=== PATIENT | male | born 1945 | race Caucasian/White ===

== ENCOUNTER → 2016-06-19 | Outpatient (CLI) | payer MEDICARE, BC ==
[2014-11-13 11:30] VITALS: BP 129/54
[~2016-06-19] MED LIST: ACET325T9 PO; ACET500T68 PO; ASPI325T4 PO; ATOR20TA58 PO; CALC-450 PO; CALC600T PO; CHOL200027 PO; CYCL10TA2 PO; DENO60DI SQ; DOCU-27 PO; EZET10TA3 PO; FENO145T PO; FENO145T2 PO; HYDR1TAB10 PO; LEVO88TA4 PO; LOTE3.5O OP; MAGN1TAB PO; MOME45CR2 TP; MULT-245 PO; NEBI5TAB2 PO; NIAC500C PO; OMEP40CA5 PO; POLY17PO5 PO; PRAV80TA2 PO; RANI150T2 PO; RISE35TA3 PO
--- NOTE | 2016-06-19 17:05 | CARD ---
APPROVED REPORT EXAM: Two-dimensional and M-mode echocardiogram with Doppler and color Doppler. Other Information Quality : Average Rhythm : NSR INDICATION Abnormal ECG Frequent PVCs 2D DIMENSIONS RVDd2.1 (2.9-3.5cm)Left Atrium(2D)3.2 (1.6-4.0cm) IVSd1.1 (0.7-1.1cm)Aortic Root(2D)2.8 (2.0-3.7cm) LVDd3.5 (3.9-5.9cm)LVOT Diameter2.0 (1.8-2.4cm) PWd1.1 (0.7-1.1cm)LVDs2.5 (2.5-4.0cm) FS (%) 28.8 %SV29.6 ml LVEF(%)56.4 (>50%) Aortic Valve AoV Peak Keven.135.1cm/sAoV VTI32.0cm AO Peak GR.7.3mmHgLVOT Peak Keven.121.2cm/s LVOT VTI 26.98cmAO Mean GR.4mmHg NUBIA (VMAX)2.29es6XEY (VTI)2.70cm2 Mitral Valve MV E Nooajiac59.0cm/sMV E Peak Gr.4mmHg MV DECEL [id number] A Suvvyekn10.7cm/s MV E Mean Gr.2mmHgMV YRB14ig E/A Ratio1.1MV A Hgdeokiu661ia MVA (PHT)5.02cm2 Tricuspid Valve TR P. Kswgcbno306jq/sRAP HOCZVQXJ6quIz TR Peak Gr.12jxEzUAHF47wuUj Pulmonary Vein S1 Ukkyumiu60.4cm/sD2 Hqsfyawl14.3cm/s LEFT VENTRICLE The left ventricle is normal size. There is normal left ventricular wall thickness. Left ventricle sy stolic function is normal. The Ejection Fraction is 55-60%. There is normal LV segmental wall motion. The left ventricular diastolic function and filling is normal for age. There is no ventricular septa l defect visualized. RIGHT VENTRICLE The right ventricle is normal size. The right ventricular systolic function is normal. ATRIA The left atrium size is normal. The right atrium size is normal. The interatrial septum is intact wit h no evidence for an atrial septal defect or patent foramen ovale as noted on 2-D or Doppler imaging. AORTIC VALVE The aortic valve is normal in structure and function. The aortic valve is trileaflet. Doppler and Col or Flow revealed no significant aortic regurgitation. There is no significant aortic valvular stenosi s. MITRAL VALVE The mitral valve is normal in structure. There is no mitral valve stenosis. Doppler and Color Flow re vealed mild mitral regurgitation. TRICUSPID VALVE The tricuspid valve is normal in structure. Doppler and Color Flow revealed mild tricuspid regurgitat ion. The PA pressure was estimated at 39 mmHg. There is no tricuspid valve stenosis. PULMONIC VALVE The pulmonic valve is not well visualized. Doppler and Color Flow revealed no pulmonic valvular regur gitation. There is no pulmonic valvular stenosis. GREAT VESSELS The aortic root is normal in size. Normal pulmonary venous flow (Doppler). The IVC is normal in size and collapses >50% with inspiration. PERICARDIAL EFFUSION There is no evidence of significant pericardial effusion. Critical Notification Critical Value: No <Conclusion> Left ventricle systolic function is normal. The Ejection Fraction is 55-60%. There is normal LV segmental wall motion. No significant valvular disease.
== END | disposition home or self-care (01) ==
LOC: ECHO 08:03
PROVIDERS: ATTEND Internal Medicine Cardiovascular Disease
DX: I49.3 Ventricular premature depolarization (principal)
CPT/HCPCS: 93306

== ENCOUNTER 2017-03-13 14:13 | Emergency (ER) | payer MEDICARE, BC ==
[~2017-03-13 14:13] MED LIST changes: -ASPI325T4 PO; +ASPI325T8 PO; +CYCL-331 PO; -CYCL10TA2 PO; +DOCU-109 PO; -DOCU-27 PO; +EZET10TA18 PO; -EZET10TA3 PO; -FENO145T PO; +FENO145T32 PO
[2017-03-13] MEDS ORDERED: IV NORMAL SALINE 1,000ML 1,000 ML IV SCH (14:31)
[2017-03-13] MEDS ORDERED: HEPARIN 25,000UTS/500ML PREMIX 500 ML IV PRN (14:45)
[2017-03-13] MEDS ORDERED: NITROGLYCERIN SUBLINGUAL 0.4 MG BOTTLE OF 25. SL PRN (14:45)
[2017-03-13 14:49] LABS: BASO # 0.1 x10^3/uL (0.0-0.2); BASO % 1 % (0-3); EOS # 0.2 x10^3/uL (0.0-0.7); EOS % 3 % (0-3); HEMATOCRIT 47.1 % (39.0-53.0); HEMOGLOBIN 16.5 g/dL (13.0-17.5); LYMPH # 2.1 x10^3/uL (1.0-4.8); LYMPH % 27 % (24-48); MEAN CORPUSCULAR HEMOGLOBIN 32 pg (25-35); MEAN CORPUSCULAR HGB CONC 35 g/dL (31-37); MEAN CORPUSCULAR VOLUME 90 fL (79-100); MONO # 0.7 x10^3/uL (0.0-1.1); MONO % 9 % (0-9); NEUT # 4.8 x10^3uL (1.8-7.7); NEUT % 61 % (31-73); PLATELET COUNT 226 x10^3/uL (140-400); RED BLOOD COUNT 5.23 x10^6/uL (4.30-5.70); RED CELL DISTRIBUTION WIDTH 13.2 % (11.5-14.5); WHITE BLOOD COUNT 7.9 x10^3/uL (4.0-11.0)
--- NOTE | 2017-03-13 14:49 | RAD ---
Indication: Chest pain for last few weeks. Numbness in left hand. Technique: Single AP view of the chest Comparison: Previous study from 11/13/2014 Findings: Heart is normal in size. Slightly suboptimal inspiratory effort. Bibasilar patchy opacities noted. Otherwise, lungs are clear. No pneumothorax or pleural effusion. Visualized bony thorax is within normal limits. Impression: Bibasilar atelectasis. No acute cardiopulmonary process.
[2017-03-13 14:57] VITALS: BP 174/105
[2017-03-13] MEDS ORDERED: ONDANSETRON PF 4 MG/2 ML VIAL. IV ONE (15:00)
[2017-03-13] MEDS ORDERED: HEPARIN for IV BOLUS 10,000 UNIT/10 ML VIAL. IV ONE (15:00)
--- NOTE | 2017-03-13 15:03 | PHYS DOC ---
Past History Past Medical History: Constipation, High Cholesterol, Hypertension, Hypotension , Other Past Surgical History: Other Smoking: Non-smoker Alcohol Use: None Drug Use: None Adult General Chief Complaint Chief Complaint: CHEST PAIN HPI HPI Patient is a 71 year old male who presents with complaint of chest pain. Patient states that his symptoms started approximately 1-2 hours prior to arrival. Patient states that he was walking his cats at home on a level surface when he started getting substernal chest pressure with radiation into his left upper extremity. Patient states over the past 2-3 months he has been noticing substernal chest pressure mild to moderate in nature that usually was accompanied while he was walking. Patient states that this would typically go away after he rested for 10-15 minutes. Patient states however that his current episode has not gone away with rest. The patient states he took a full strength aspirin prior to arrival. Patient has history of PVCs, hypertension, hyperlipidemia Review of Systems Review of Systems Constitutional: Denies fever or chills [] Eyes: Denies change in visual acuity, redness, or eye pain [] HENT: Denies nasal congestion or sore throat [] Respiratory: Shortness of breath[] Cardiovascular: Chest pain[] GI: Nausea, denies abdominal pain, vomiting, bloody stools or diarrhea [] : Denies dysuria or hematuria [] Musculoskeletal: Denies back pain or joint pain [] Integument: Denies rash or skin lesions [] Neurologic: Denies headache, focal weakness or sensory changes [] All other systems were reviewed and found to be within normal limits, except as documented in this note. Current Medications Current Medications Current Medications Medications (Trade) Dose Ordered Sig/[facility] Start Time Stop Time Status Last Admin Dose Admin Fentanyl Citrate (Fentanyl 2ml Vial) 50 mcg PRN Q15MIN PRN 03/13/17 14:45 03/14/17 14:44 Heparin Sodium (Porcine) (Heparin Sodium) 4,000 unit 1X ONCE 03/13/17 15:00 03/13/17 15:01 Heparin Sodium/ Dextrose 500 ml @ 0 mls/hr CONT PRN 03/13/17 14:45 Nitroglycerin (Nitrostat) 0.4 mg PRN Q5MIN PRN 03/13/17 14:45 03/14/17 14:44 Ondansetron HCl (Zofran) 4 mg 1X ONCE 03/13/17 15:00 03/13/17 15:01 Sodium Chloride 1,000 ml @ 125 mls/hr Q8H 03/13/17 14:31 03/13/17 22:30 Allergies Allergies Allergies Coded Allergies Type Severity Reaction Last Updated Verified atorvastatin Allergy Intermediate Hives 09/29/14 Yes fenofibrate Allergy Intermediate Hives 05/17/14 Yes rosuvastatin calcium Allergy Intermediate Hives 05/21/14 Yes Physical Exam Physical Exam Constitutional: Alert, afebrile, appears in moderate discomfort. [] HENT: Normocephalic, atraumatic, bilateral external ears normal, oropharynx moist, no oral exudates, nose normal. [] Eyes: PERRLA, EOMI, conjunctiva normal, no discharge. [] Neck: Normal range of motion, no tenderness, supple, no stridor. [] Cardiovascular:Heart rate regular rhythm, no murmur [] Lungs & Thorax: Bilateral breath sounds clear to auscultation [] Abdomen: Bowel sounds normal, soft, no tenderness, no masses, no pulsatile masses. [] Skin: Warm, dry, no erythema, no rash. [] Back: No tenderness, no CVA tenderness. [] Extremities: No tenderness, no cyanosis, no clubbing, ROM intact, no edema. [] Neurologic: Alert and oriented X 3, normal motor function, normal sensory function, no focal deficits noted. [] Current Patient Data Lab Results Laboratory Tests Test 03/13/17 14:27 White Blood Count 7.9 x10^3/uL (4.0-11.0) Red Blood Count 5.23 x10^6/uL (4.30-5.70) Hemoglobin 16.5 g/dL (13.0-17.5) Hematocrit 47.1 % (39.0-53.0) Mean Corpuscular Volume 90 fL (79-100) Mean Corpuscular Hemoglobin 32 pg (25-35) Mean Corpuscular Hemoglobin Concent 35 g/dL (31-37) Red Cell Distribution Width 13.2 % (11.5-14.5) Platelet Count 226 x10^3/uL (140-400) Neutrophils (%) (Auto) 61 % (31-73) Lymphocytes (%) (Auto) 27 % (24-48) Monocytes (%) (Auto) 9 % (0-9) Eosinophils (%) (Auto) 3 % (0-3) Basophils (%) (Auto) 1 % (0-3) Neutrophils # (Auto) 4.8 x10^3uL (1.8-7.7) Lymphocytes # (Auto) 2.1 x10^3/uL (1.0-4.8) Monocytes # (Auto) 0.7 x10^3/uL (0.0-1.1) Eosinophils # (Auto) 0.2 x10^3/uL (0.0-0.7) Basophils # (Auto) 0.1 x10^3/uL (0.0-0.2) EKG EKG Interpreted by me: Heart rate 94, sinus rhythm, left anterior fascicular block, left axis deviation, ST depressions in V2 through V6, T-wave inversions in the lateral leads, no acute contiguous ST elevations [] Radiology/Procedures Radiology/Procedures [address] [address] IMAGING REPORT Signed PATIENT: KOBY ASIF ACCOUNT: [id number] : 1945 LOCATION: ER AGE: 71 SEX: M EXAM STATUS: REG ER ORD. PHYSICIAN: HEATHER RETANA MD REASON: chest pain PROCEDURE: PORTABLE CHEST 1V Indication: Chest pain for last few weeks. Numbness in left hand. Technique: Single AP view of the chest Comparison: Previous study from 11/13/2014 Findings: Heart is normal in size. Slightly suboptimal inspiratory effort. Bibasilar patchy opacities noted. Otherwise, lungs are clear. No pneumothorax or pleural effusion. Visualized bony thorax is within normal limits. Impression: Bibasilar atelectasis. No acute cardiopulmonary process. DICTATED AND SIGNED BY: FREDIS LEACH DO DATE: 03/13/17 5955 CC: HEATHER RETANA MD; PCP,NO ~ [] Course & Med Decision Making Course & Med Decision Making Pertinent Labs and Imaging studies reviewed. (See chart for details) HEART score is 8. The patient's symptoms and history are highly suspicious for unstable angina and acute coronary syndrome. The patient was not given full strength aspirin as he took this prior to coming to the emergency department. The patient was started on nitroglycerin which help relieve the patient's pain. Patient was also started on IV heparin with a 4000 unit bolus followed by a continuous drip per protocol. I contacted Leela Serrano, advanced practice provider for [facility] cardiology. After discussing the case with her she agreed to patient being transferred to [facility] as there is a high likelihood the patient will need to have an inpatient cardiac catheterization. Due to recurrence of pain, the patient was started on IV nitroglycerin drip. Patient will be transferred by ground EMS to [facility] for further care. Critical care time excluding procedures: 55 minutes Dragon Disclaimer Dragon Disclaimer This electronic medical record was generated, in whole or in part, using a voice recognition dictation system. Departure Departure: Impression: Primary Impression: Unstable angina Additional Impressions: Hypertension Hyperlipidemia Disposition: XF SHT-TRM HOSP Condition: GUARDED Referrals: PCP,NO (PCP) Problem Qualifiers Additional Impressions: Hypertension Hypertension type: essential hypertension Qualified Codes: I10 - Essential ( primary) hypertension Hyperlipidemia Hyperlipidemia type: unspecified Qualified Codes: E78.5 - Hyperlipidemia, unspecified HEATHER RETANA MD Mar 13, 2017 15:02
[2017-03-13 15:05] LABS: POTASSIUM ISTAT 3.6 mmol/L (3.5-5.0)
[2017-03-13 15:12] LABS: ALBUMIN 3.7 g/dL (3.4-5.0); MAGNESIUM 1.9 mg/dL (1.8-2.4); TOTAL BILIRUBIN 0.5 mg/dL (0.2-1.0); TOTAL PROTEIN 7.7 g/dL (6.4-8.2)
[2017-03-13 15:22] LABS: DIRECT BILIRUBIN 0.1 mg/dL (0.0-0.2)
[2017-03-13] MEDS ORDERED: NITROGLYCERIN PREMIX 250 ML IV ONE (15:41)
[2017-03-13] MEDS ORDERED: NITROGLYCERIN PREMIX 250 ML IV PRN (15:45)
--- NOTE | 2017-03-13 17:19 | EKG ---
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
--- NOTE | 2017-03-13 17:22 | EKG ---
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
== END 2017-03-13 17:05 | disposition short-term general hospital (02) ==
LOC: ER 14:13
DX: I20.0 Unstable angina (principal); I10 Essential (primary) hypertension; E78.00 Pure hypercholesterolemia, unspecified; E78.5 Hyperlipidemia, unspecified; Z88.8 Allergy status to other drugs, medicaments and biological substances
CPT/HCPCS: 36415; 71045; 80047; 80076; 82553; 83735; 83880; 84484; 85025; 85610; 85730; 93005; 96365; 96366; 96368; 96376; 99291; J1644; J3490; J7030

== ENCOUNTER → 2017-07-08 | Outpatient (CLI) | payer MEDICARE, BC ==
[~2017-07-08] MED LIST changes: -FENO145T2 PO; +FENO145T30 PO
[2017-07-08 19:10] LABS: T3 TOTAL 81 ng/dL (71-180); THYROXINE 7.8 ug/dL (4.5-12.0)
== END | disposition home or self-care (01) ==
LOC: LAB 08:22
PROVIDERS: ATTEND Psychiatry & Neurology Neurology
DX: F03.90 Unspecified dementia, unspecified severity, without behavioral disturbance, psychotic disturbance, mood disturbance, and anxiety (principal); I12.9 Hypertensive chronic kidney disease with stage 1 through stage 4 chronic kidney disease, or unspecified chronic kidney disease; N18.2 Chronic kidney disease, stage 2 (mild)
CPT/HCPCS: 36415; 82306; 82607; 84436; 84443; 84480; 86593

== ENCOUNTER → 2017-10-25 | Outpatient (CLI) | payer MEDICARE, BC ==
[2017-10-25 09:33] LABS: BASO % 1 % (0-3); EOS # 0.2 x10^3/uL (0.0-0.7); EOS % 3 % (0-3); HEMATOCRIT 47.8 % (39.0-53.0); HEMOGLOBIN 16.6 g/dL (13.0-17.5); LYMPH # 1.4 x10^3/uL (1.0-4.8); LYMPH % 23 % (24-48); MEAN CORPUSCULAR HEMOGLOBIN 31 pg (25-35); MEAN CORPUSCULAR HGB CONC 35 g/dL (31-37); MEAN CORPUSCULAR VOLUME 89 fL (79-100); MONO # 0.4 x10^3/uL (0.0-1.1); MONO % 7 % (0-9); NEUT # 3.9 x10^3uL (1.8-7.7); NEUT % 66 % (31-73); PLATELET COUNT 215 x10^3/uL (140-400); RED BLOOD COUNT 5.37 x10^6/uL (4.30-5.70); RED CELL DISTRIBUTION WIDTH 13.5 % (11.5-14.5)
[2017-10-25 09:40] LABS: ALBUMIN 3.9 g/dL (3.4-5.0); CALCIUM 9.4 mg/dL (8.5-10.1); CREATININE 1.1 mg/dL (0.7-1.3); GFR 66.2; POTASSIUM 4.3 mmol/L (3.5-5.1); TOTAL BILIRUBIN 0.8 mg/dL (0.2-1.0); TOTAL PROTEIN 7.7 g/dL (6.4-8.2)
[2017-10-25 09:52] LABS: MAGNESIUM 1.9 mg/dL (1.8-2.4)
[2017-10-25 14:04] LABS: THYROID STIM HORMONE (TSH) 0.097 uIU/mL (0.358-3.740)
[2017-10-25 22:16] LABS: T3 TOTAL 100 ng/dL (71-180); TESTOSTERONE TOTAL 431 ng/dL (264-916); THYROXINE 9.2 ug/dL (4.5-12.0)
[2017-10-26 01:08] LABS: HEMOGLOBIN A1C 5.4 % (4.8-5.6)
== END | disposition home or self-care (01) ==
LOC: LAB 08:20
PROVIDERS: ATTEND General Practice
DX: F03.90 Unspecified dementia, unspecified severity, without behavioral disturbance, psychotic disturbance, mood disturbance, and anxiety (principal); I13.0 Hypertensive heart and chronic kidney disease with heart failure and stage 1 through stage 4 chronic kidney disease, or unspecified chronic kidney disease; I50.9 Heart failure, unspecified; N18.3 Chronic kidney disease, stage 3 (moderate); E78.00 Pure hypercholesterolemia, unspecified; E03.9 Hypothyroidism, unspecified; E78.5 Hyperlipidemia, unspecified; E87.6 Hypokalemia; I25.10 Atherosclerotic heart disease of native coronary artery without angina pectoris; Z86.73 Personal history of transient ischemic attack (TIA), and cerebral infarction without residual deficits; Z88.8 Allergy status to other drugs, medicaments and biological substances; Z85.46 Personal history of malignant neoplasm of prostate; Z72.0 Tobacco use; Z86.79 Personal history of other diseases of the circulatory system; Z82.49 Family history of ischemic heart disease and other diseases of the circulatory system
CPT/HCPCS: 36415; 80053; 80061; 83036; 83735; 84403; 84436; 84443; 84480; 85025

== ENCOUNTER 2017-11-11 15:03 | Emergency (ER) | payer MEDICARE, BC ==
[~2017-11-11] VITALS: Ht 160 cm; Wt 70.3 kg
--- NOTE | 2017-11-11 15:17 | EKG ---
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
[2017-11-11 15:44] LABS: BASO % 1 % (0-3); EOS # 0.2 x10^3/uL (0.0-0.7); EOS % 3 % (0-3); LYMPH # 1.6 x10^3/uL (1.0-4.8); LYMPH % 24 % (24-48); MEAN CORPUSCULAR HEMOGLOBIN 31 pg (25-35); MEAN CORPUSCULAR HGB CONC 35 g/dL (31-37); MEAN CORPUSCULAR VOLUME 89 fL (79-100); MONO # 0.6 x10^3/uL (0.0-1.1); MONO % 10 % (0-9); NEUT # 4.2 x10^3uL (1.8-7.7); NEUT % 63 % (31-73); PLATELET COUNT 228 x10^3/uL (140-400); RED BLOOD COUNT 5.18 x10^6/uL (4.30-5.70); RED CELL DISTRIBUTION WIDTH 13.2 % (11.5-14.5); WHITE BLOOD COUNT 6.6 x10^3/uL (4.0-11.0)
--- NOTE | 2017-11-11 15:46 | RAD ---
EXAM: CHEST 1 VIEW History: Chest pain COMPARISON: 03/13/2017 TECHNIQUE: Single portable radiograph of the chest FINDINGS: The cardiac silhouette is unremarkable. The lungs are clear bilaterally. The costophrenic sulci are clear and well demarcated. IMPRESSION: No radiographic evidence of an acute cardiopulmonary process. Electronically signed by: Emiliano Steinberg MD (11/11/2017 3:42 PM) [id number]
[2017-11-11 15:59] LABS: ALBUMIN 3.9 g/dL (3.4-5.0); CALCIUM 9.2 mg/dL (8.5-10.1); CREATININE 1.2 mg/dL (0.7-1.3); DIRECT BILIRUBIN 0.1 mg/dL (0.0-0.2); GFR 59.9; POTASSIUM 3.5 mmol/L (3.5-5.1); TOTAL BILIRUBIN 0.4 mg/dL (0.2-1.0); TOTAL PROTEIN 7.5 g/dL (6.4-8.2)
--- NOTE | 2017-11-11 16:14 | PHYS DOC ---
Past History Past Medical History: Anxiety, Cancer, High Cholesterol, Heart Disease, Hypertension, Renal Disease, Other Past Surgical History: Other Smoking: Non-smoker Alcohol Use: None Drug Use: None Adult General Chief Complaint Chief Complaint: CHEST PAIN HPI HPI This is a pleasant 72-year-old male with a history of coronary artery disease presenting the emergency department today with chest pain intermittent over the past 24 hours. The pain is worse with walking and going up hill. He had sweatiness of the skin earlier today. He has a history of stenting in March by one of our cardiologists. The pain is calm and on. Currently the pain is improving. He denies fevers chills or cough. He denies unilateral leg swelling hemoptysis or personal history of blood clotting disorders. He denies recent immobilization or surgery. review of systems is negative for abdominal pain nausea vomiting. Positive for diaphoresis and sweatiness of skin. Negative for fevers or chills. All other review of systems is negative unless otherwise noted in history of present illness. ED course: 72-year-old male with history of coronary artery disease presenting to the emergency department today with chest pain. On arrival EKG obtained and reviewed by myself shows sinus rhythm with a mildly tachycardic rate. ST segments congruent. Not suggestive of acute ischemia. Chest x-ray obtained along with blood work. Troponin is within normal limits. CT angiogram performed which shows no evidence of pulmonary embolism. I spoke with Dr. Ayala her opthalmic tech who recommends starting the patient on heparin and transferred to [facility] for further treatment and care. Patient was signed out to Dr. Maguire with plans to discuss case with Dr. Reardon who will be the accepting physician for transfer. Review of Systems Review of Systems SEE ABOVE. Allergies Allergies Allergies Coded Allergies Type Severity Reaction Last Updated Verified atorvastatin Allergy Intermediate Hives 09/29/14 Yes fenofibrate Allergy Intermediate Hives 05/17/14 Yes rosuvastatin calcium Allergy Intermediate Hives 05/21/14 Yes Physical Exam Physical Exam Constitutional: Well developed, well nourished, no acute distress, non-toxic appearance. [] HENT: Normocephalic, atraumatic, bilateral external ears normal, oropharynx moist, no oral exudates, nose normal. [] Eyes: PERRLA, EOMI, conjunctiva normal, no discharge. [] Neck: Normal range of motion, no tenderness, supple, no stridor. [] Cardiovascular:Heart rate regular rhythm, no murmur [] Lungs & Thorax: Bilateral breath sounds clear to auscultation [] Abdomen: Bowel sounds normal, soft, no tenderness, no masses, no pulsatile masses. [] Skin: Warm, dry, no erythema, no rash. [] Back: No tenderness, no CVA tenderness. [] Extremities: No tenderness, no cyanosis, no clubbing, ROM intact, no edema. [] Neurologic: Alert and oriented X 3, normal motor function, normal sensory function, no focal deficits noted. [] Psychologic: Affect normal, judgement normal, mood normal. [] Current Patient Data Vital Signs Vital Signs Date Time Temp Pulse Resp B/P (MAP) Pulse Ox O2 Delivery O2 Flow Rate FiO2 11/11/17 15:42 98.2 101 15 99 Room Air Lab Results Laboratory Tests Test 11/11/17 15:23 White Blood Count 6.6 x10^3/uL (4.0-11.0) Red Blood Count 5.18 x10^6/uL (4.30-5.70) Hemoglobin 16.0 g/dL (13.0-17.5) Hematocrit 46.0 % (39.0-53.0) Mean Corpuscular Volume 89 fL (79-100) Mean Corpuscular Hemoglobin 31 pg (25-35) Mean Corpuscular Hemoglobin Concent 35 g/dL (31-37) Red Cell Distribution Width 13.2 % (11.5-14.5) Platelet Count 228 x10^3/uL (140-400) Neutrophils (%) (Auto) 63 % (31-73) Lymphocytes (%) (Auto) 24 % (24-48) Monocytes (%) (Auto) 10 % (0-9) H Eosinophils (%) (Auto) 3 % (0-3) Basophils (%) (Auto) 1 % (0-3) Neutrophils # (Auto) 4.2 x10^3uL (1.8-7.7) Lymphocytes # (Auto) 1.6 x10^3/uL (1.0-4.8) Monocytes # (Auto) 0.6 x10^3/uL (0.0-1.1) Eosinophils # (Auto) 0.2 x10^3/uL (0.0-0.7) Basophils # (Auto) 0.0 x10^3/uL (0.0-0.2) Sodium Level 137 mmol/L (136-145) Potassium Level 3.5 mmol/L (3.5-5.1) Chloride Level 101 mmol/L (98-107) Carbon Dioxide Level 25 mmol/L (21-32) Anion Gap 11 (6-14) Blood Urea Nitrogen 15 mg/dL (8-26) Creatinine 1.2 mg/dL (0.7-1.3) Estimated GFR (Cockcroft-Gault) 59.9 Glucose Level 119 mg/dL (70-99) H Calcium Level 9.2 mg/dL (8.5-10.1) Total Bilirubin 0.4 mg/dL (0.2-1.0) Direct Bilirubin 0.1 mg/dL (0.0-0.2) Aspartate Amino Transferase (AST) 17 U/L (15-37) Alanine Aminotransferase (ALT) 43 U/L (16-63) Alkaline Phosphatase 70 U/L (46-116) Troponin I Quantitative < 0.017 ng/mL (0-0.055) Total Protein 7.5 g/dL (6.4-8.2) Albumin 3.9 g/dL (3.4-5.0) Lipase 140 U/L (73-393) EKG EKG [] Radiology/Procedures Radiology/Procedures [] Course & Med Decision Making Course & Med Decision Making Pertinent Labs and Imaging studies reviewed. (See chart for details) [] Dragon Disclaimer Dragon Disclaimer This electronic medical record was generated, in whole or in part, using a voice recognition dictation system. Departure Departure: Impression: Primary Impression: Chest pain Disposition: ADMITTED INPATIENT Condition: STABLE Referrals: MARZENA ROSARIO DO (PCP) KATIA LOGAN MD Nov 11, 2017 16:14
[2017-11-11] MEDS ORDERED: IOHEXOL 300 MG/ML 75 ML VIAL. IV ONE (17:00)
--- NOTE | 2017-11-11 17:39 | RAD ---
PQRS Compliance statement: One or more of the following individualized dose reduction techniques were utilized for this examination: 1. Automated exposure control. 2. Adjustment of the mA and/or kV according to patient size. 3. Use of iterative reconstruction technique. Indication:Chest pain, left arm numbness, short of air TECHNIQUE: CT angiogram of the chest with IV contrast with multiplanar MIP reformats. COMPARISON: None FINDINGS: Diagnostic quality PE study. There are no central, segmental or subsegmental filling defects in the pulmonary arteries. Heart is normal in size. No pericardial or pleural effusion. Coronary artery calcifications. Clear neck base. No enlarged axillary, mediastinal or hilar lymph nodes. Calcified right hilar and subcarinal lymph nodes are seen. Central airways are patent. Elevated right hemidiaphragm with mild right basilar subsegmental atelectasis. Otherwise, lungs are clear. 1 cm low attenuating lesion is seen in segment 6 of the liver. Scattered calcified granulomas are seen liver and spleen. No radiopaque gallstones. Visualized sections through the pancreas, adrenals and kidneys are within normal limits. Mild atherosclerotic calcifications seen of the aortic arch. No suspicious bony lesion. IMPRESSION: 1. No PE. 2. 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 Electronically signed by: Alfonso Parmar DO (11/11/2017 5:36 PM) [facility]
[2017-11-11] MEDS ORDERED: HEPARIN for IV BOLUS 10,000 UNIT/10 ML VIAL. IV ONE (18:00)
[2017-11-11] MEDS ORDERED: HEPARIN 25,000UTS/500ML PREMIX 500 ML IV PRN (18:00)
[2017-11-11 21:00] VITALS: BP 136/79
== END 2017-11-11 21:53 | disposition short-term general hospital (02) ==
LOC: ER 15:03
DX: R07.9 Chest pain, unspecified (principal); F41.9 Anxiety disorder, unspecified; E78.00 Pure hypercholesterolemia, unspecified; I11.9 Hypertensive heart disease without heart failure; I25.10 Atherosclerotic heart disease of native coronary artery without angina pectoris; N28.9 Disorder of kidney and ureter, unspecified; Z88.8 Allergy status to other drugs, medicaments and biological substances
CPT/HCPCS: 36415; 71045; 71275; 80048; 80076; 83690; 84484; 85025; 85610; 85730; 93005; 96365; 99285; Q9967

== ENCOUNTER → 2018-01-20 | Outpatient (CLI) | payer MEDICARE, BC ==
[2018-01-20 08:58] LABS: CALCIUM 9.4 mg/dL (8.5-10.1); CREATININE 1.2 mg/dL (0.7-1.3); GFR 59.9; POTASSIUM 4.5 mmol/L (3.5-5.1)
== END | disposition home or self-care (01) ==
LOC: LAB 08:09
PROVIDERS: ATTEND Internal Medicine Cardiovascular Disease
DX: I25.10 Atherosclerotic heart disease of native coronary artery without angina pectoris (principal)
CPT/HCPCS: 36415; 80048; 80061; 83880

== ENCOUNTER 2018-06-03 09:08 | Emergency (ER) | payer MEDICARE, BC ==
[~2018-06-03] VITALS: Ht 160 cm; Wt 71.7 kg
[2018-06-03 09:23] VITALS: BP 151/92
[2018-06-03 09:49] LABS: BASO % 1 % (0-3); EOS # 0.2 x10^3/uL (0.0-0.7); EOS % 3 % (0-3); HEMOGLOBIN 16.7 g/dL (13.0-17.5); LYMPH # 1.3 x10^3/uL (1.0-4.8); LYMPH % 24 % (24-48); MEAN CORPUSCULAR HEMOGLOBIN 32 pg (25-35); MEAN CORPUSCULAR HGB CONC 35 g/dL (31-37); MEAN CORPUSCULAR VOLUME 93 fL (79-100); MONO # 0.4 x10^3/uL (0.0-1.1); MONO % 7 % (0-9); NEUT # 3.6 x10^3uL (1.8-7.7); NEUT % 65 % (31-73); PLATELET COUNT 253 x10^3/uL (140-400); RED BLOOD COUNT 5.15 x10^6/uL (4.30-5.70); RED CELL DISTRIBUTION WIDTH 12.8 % (11.5-14.5); WHITE BLOOD COUNT 5.5 x10^3/uL (4.0-11.0)
[2018-06-03] MEDS ORDERED: IOHEXOL 300 MG/ML 75 ML VIAL. IV ONE (10:00)
[2018-06-03 10:02] LABS: ALBUMIN 4.1 g/dL (3.4-5.0); CREATININE 1.2 mg/dL (0.7-1.3); GFR 59.7; POTASSIUM 4.1 mmol/L (3.5-5.1); TOTAL BILIRUBIN 0.7 mg/dL (0.2-1.0); TOTAL PROTEIN 8.1 g/dL (6.4-8.2)
--- NOTE | 2018-06-03 11:12 | RAD ---
CT MAXILLOFACIAL W/CONTRAST Indication: Left cheek swelling since this morning Technique: Postcontrast CT imaging was performed of the maxillofacial region, multiplanar reconstruction images submitted. One or more of the following individualized dose reduction techniques were utilized for this examination: 1. Automated exposure control 2. Adjustment of the mA and/or kV according to patient size 3. Use of iterative reconstruction technique. Comparison: None Findings: No discrete soft tissue fluid collection/abscess is identified. Submandibular and parotid glands are symmetric in appearance. There is preservation of the parapharyngeal fat planes. There is artifact created by nonremovable dental amalgam. Visualized paranasal sinuses are overall aerated, no air-fluid levels. Mastoid air cells are aerated. No aggressive bone destruction is identified. IMPRESSION: 1. No significant abnormality is identified. Electronically signed by: Sundar Chung MD (06/03/2018 11:09 AM) [id number]
--- NOTE | 2018-06-03 11:29 | PHYS DOC ---
Past History Past Medical History: Anxiety, Cancer, High Cholesterol, Heart Disease, Hypertension, Renal Disease, Other Past Surgical History: Other Smoking: Non-smoker Alcohol Use: None Drug Use: None Adult General Chief Complaint Chief Complaint: FACE PROBLEM HPI HPI 73-year-old male presents with left-sided facial swelling. He noticed some swelling in the left posterior cheek yesterday. It continues to be there today. He states that when he eats food it feels like the salivary gland on that side reyna more than the other side. The patient has not had swelling like this before. He denies any pain in his teeth. He denies any ear pain or decreased hearing. He denies fever or chills. Review of Systems Review of Systems Constitutional: Denies fever or chills [] Eyes: Denies change in visual acuity, redness, or eye pain [] HENT: left cheek swelling [] Respiratory: Denies cough or shortness of breath [] Cardiovascular: No additional information not addressed in HPI [] GI: Denies abdominal pain, nausea, vomiting, bloody stools or diarrhea [] : Denies dysuria or hematuria [] Musculoskeletal: Denies back pain or joint pain [] Integument: Denies rash or skin lesions [] Neurologic: Denies headache, focal weakness or sensory changes [] Endocrine: Denies polyuria or polydipsia [] All other systems were reviewed and found to be within normal limits, except as documented in this note. Current Medications Current Medications Current Medications Medications (Trade) Dose Ordered Sig/Tessy Start Time Stop Time Status Last Admin Dose Admin Iohexol (Omnipaque 300 Mg/ml) 75 ml 1X ONCE 06/03/18 10:00 06/03/18 10:01 DC 06/03/18 10:15 75 ML Allergies Allergies Allergies Coded Allergies Type Severity Reaction Last Updated Verified atorvastatin Allergy Intermediate Hives 09/29/14 Yes fenofibrate Allergy Intermediate Hives 05/17/14 Yes rosuvastatin calcium Allergy Intermediate Hives 05/21/14 Yes Physical Exam Physical Exam Constitutional: Well developed, well nourished, no acute distress, non-toxic appearance. [] HENT: Normocephalic, atraumatic, bilateral external ears normal, oropharynx moist, no oral exudates, nose normal. Mild swelling of the preauricular area of the left cheek, soft. [] Eyes: PERRLA, EOMI, conjunctiva normal, no discharge. [] Neck: Normal range of motion, no tenderness, supple, no stridor. [] Cardiovascular:Heart rate regular rhythm, no murmur [] Lungs & Thorax: Bilateral breath sounds clear to auscultation [] Abdomen: Bowel sounds normal, soft, no tenderness, no masses, no pulsatile masses. [] Skin: Warm, dry, no erythema, no rash. [] Back: No tenderness, no CVA tenderness. [] Extremities: No tenderness, no cyanosis, no clubbing, ROM intact, no edema. [] Neurologic: Alert and oriented X 3, normal motor function, normal sensory function, no focal deficits noted. [] Psychologic: Affect normal, judgement normal, mood normal. [] Current Patient Data Vital Signs Vital Signs Date Time Temp Pulse Resp B/P (MAP) Pulse Ox O2 Delivery O2 Flow Rate FiO2 06/03/18 09:23 98.2 98 22 100 Room Air Lab Results Laboratory Tests Test 06/03/18 09:37 White Blood Count 5.5 x10^3/uL (4.0-11.0) Red Blood Count 5.15 x10^6/uL (4.30-5.70) Hemoglobin 16.7 g/dL (13.0-17.5) Hematocrit 48.0 % (39.0-53.0) Mean Corpuscular Volume 93 fL (79-100) Mean Corpuscular Hemoglobin 32 pg (25-35) Mean Corpuscular Hemoglobin Concent 35 g/dL (31-37) Red Cell Distribution Width 12.8 % (11.5-14.5) Platelet Count 253 x10^3/uL (140-400) Neutrophils (%) (Auto) 65 % (31-73) Lymphocytes (%) (Auto) 24 % (24-48) Monocytes (%) (Auto) 7 % (0-9) Eosinophils (%) (Auto) 3 % (0-3) Basophils (%) (Auto) 1 % (0-3) Neutrophils # (Auto) 3.6 x10^3uL (1.8-7.7) Lymphocytes # (Auto) 1.3 x10^3/uL (1.0-4.8) Monocytes # (Auto) 0.4 x10^3/uL (0.0-1.1) Eosinophils # (Auto) 0.2 x10^3/uL (0.0-0.7) Basophils # (Auto) 0.0 x10^3/uL (0.0-0.2) Sodium Level 140 mmol/L (136-145) Potassium Level 4.1 mmol/L (3.5-5.1) Chloride Level 101 mmol/L (98-107) Carbon Dioxide Level 26 mmol/L (21-32) Anion Gap 13 (6-14) Blood Urea Nitrogen 19 mg/dL (8-26) Creatinine 1.2 mg/dL (0.7-1.3) Estimated GFR (Cockcroft-Gault) 59.7 BUN/Creatinine Ratio 16 (6-20) Glucose Level 135 mg/dL (70-99) H Calcium Level 10.0 mg/dL (8.5-10.1) Total Bilirubin 0.7 mg/dL (0.2-1.0) Aspartate Amino Transferase (AST) 19 U/L (15-37) Alanine Aminotransferase (ALT) 32 U/L (16-63) Alkaline Phosphatase 66 U/L (46-116) Total Protein 8.1 g/dL (6.4-8.2) Albumin 4.1 g/dL (3.4-5.0) Albumin/Globulin Ratio 1.0 (1.0-1.7) EKG EKG [] Radiology/Procedures Radiology/Procedures [] Impressions: CT MAXILLOFACIAL W/CONTRAST Indication: Left cheek swelling since this morning Technique: Postcontrast CT imaging was performed of the maxillofacial region, multiplanar reconstruction images submitted. One or more of the following individualized dose reduction techniques were utilized for this examination: 1. Automated exposure control 2. Adjustment of the mA and/or kV according to patient size 3. Use of iterative reconstruction technique. Comparison: None Findings: No discrete soft tissue fluid collection/abscess is identified. Submandibular and parotid glands are symmetric in appearance. There is preservation of the parapharyngeal fat planes. There is artifact created by nonremovable dental amalgam. Visualized paranasal sinuses are overall aerated, no air-fluid levels. Mastoid air cells are aerated. No aggressive bone destruction is identified. IMPRESSION: 1. No significant abnormality is identified. Electronically signed by: Kamila He MD (06/03/2018 11:09 AM) [id number] DICTATED AND SIGNED BY: KAMILA HE MD DATE: 06/03/18 1109 CC: MARZENA ROSARIO DO; DINESH VANCE DO Course & Med Decision Making Course & Med Decision Making Pertinent Labs and Imaging studies reviewed. (See chart for details) The patient's maxillofacial CT is negative for significant findings. Appears to be some extra fluid in the question area, but no sign of abscess or mass. The patient is stable for discharge at this time. [] Dragon Disclaimer Dragon Disclaimer This electronic medical record was generated, in whole or in part, using a voice recognition dictation system. Departure Departure: Impression: Primary Impression: Left facial swelling Disposition: 01 HOME, SELF-CARE Condition: STABLE Referrals: MARZENA ROSARIO DO (PCP) Patient Instructions: Salivary Stone DINESH VANCE DO Jun 03, 2018 11:29
== END 2018-06-03 11:50 | disposition home or self-care (01) ==
LOC: ER 09:08
DX: R22.0 Localized swelling, mass and lump, head (principal); F41.9 Anxiety disorder, unspecified; E78.00 Pure hypercholesterolemia, unspecified; I11.9 Hypertensive heart disease without heart failure; Z88.8 Allergy status to other drugs, medicaments and biological substances
CPT/HCPCS: 36415; 70487; 80053; 85025; 99284; Q9967

== ENCOUNTER → 2018-11-05 | Outpatient (CLI) | payer MEDICARE, BC ==
[~2018-11-05] MED LIST changes: -EZET10TA18 PO; +EZET10TA20 PO
--- NOTE | 2018-11-06 13:07 | CARD ---
MR#: [id number] Date of Study: 11/05/2018 Ordering Physician: VERONICA SCHULZ, Referring Physician: VERONICA SCHULZ, Tech: Nurys Gonzalez BRII APPROVED REPORT EXAM: Two-dimensional and M-mode echocardiogram with Doppler and color Doppler. Other Information Quality : AverageHR: 86bpm Rhythm : NSR INDICATION CAD 2D DIMENSIONS RVDd2.4 (2.9-3.5cm)Left Atrium(2D)3.2 (1.6-4.0cm) IVSd0.9 (0.7-1.1cm)Aortic Root(2D)2.9 (2.0-3.7cm) LVDd4.0 (3.9-5.9cm)LVOT Diameter2.0 (1.8-2.4cm) PWd1.1 (0.7-1.1cm)LVDs2.8 (2.5-4.0cm) FS (%) 28.5 %SV38.3 ml LVEF(%)55.6 (>50%) M-Mode DIMENSIONS Left Atrium(MM)3.43 (2.5-4.0cm)Aortic Root3.22 (2.2-3.7cm) Aortic Valve AoV Peak Keven.183.7cm/sAoV VTI34.1cm AO Peak GR.13.5mmHgLVOT Peak Keven.118.3cm/s LVOT VTI 20.78cmAO Mean GR.7mmHg NUBIA (VMAX)1.06ne5UJT (VTI)1.86cm2 Mitral Valve MV E Ngmfnhad157.1cm/sMV DECEL PCXA275kg MV A Fyccloac81.8cm/sE/A Ratio1.2 Pulmonary Valve PV Peak Daotdtjg402.1cm/sPV Peak Grad.10mmHg Tricuspid Valve TR P. Pffaknpv372ud/sRAP ZEVKAOMW6wnSs TR Peak Gr.80gnGtHNBU70dtHg LEFT VENTRICLE The left ventricle is normal size. There is normal left ventricular wall thickness. The left ventricu lar systolic function is normal and the ejection fraction is within normal range. The Ejection Fracti on is 55-60%. There is normal LV segmental wall motion. Transmitral Doppler flow pattern is Grade I-a bnormal relaxation pattern. RIGHT VENTRICLE The right ventricle is normal size. There is normal right ventricular wall thickness. The right ventr icular systolic function is normal. ATRIA The left atrium size is normal. The right atrium size is normal. The interatrial septum is intact wit h no evidence for an atrial septal defect or patent foramen ovale as noted on 2-D or Doppler imaging. AORTIC VALVE The aortic valve is normal in structure and function. The aortic valve is trileaflet. Doppler and Col or Flow revealed no significant aortic regurgitation. There is no significant aortic valvular stenosi s. There is no aortic valvular vegetation. MITRAL VALVE Mitral annular calcification is mild. There is no evidence of mitral valve prolapse. There is no mitr al valve stenosis. Doppler and Color-flow revealed mild mitral regurgitation. TRICUSPID VALVE The tricuspid valve is normal in structure and function. Doppler and Color Flow revealed mild tricusp id regurgitation. The PA pressure was estimated at 46 mmHg. There is no tricuspid valve prolapse or v egetation. There is no tricuspid valve stenosis. PULMONIC VALVE The pulmonic valve is not well visualized. GREAT VESSELS The aortic root is normal in size. The ascending aorta is normal in size. The IVC is normal in size a nd collapses >50% with inspiration. PERICARDIAL EFFUSION There is no evidence of significant pericardial effusion. Critical Notification Critical Value: No <Conclusion> The left ventricle is normal size. The left ventricular systolic function is normal and the ejection fraction is within normal range. The Ejection Fraction is 55-60%. There is no significant aortic valvular stenosis. Doppler and Color Flow revealed no significant aortic regurgitation. Doppler and Color-flow revealed mild mitral regurgitation. Doppler and Color Flow revealed mild tricuspid regurgitation. The PA pressure was estimated at 46 mmHg. Signed by : Steven Flores MD Electronically Approved : 11/05/2018 15:05:44
--- NOTE | 2018-11-06 13:07 | RAD ---
MR#: [id number] Date of Study: 11/05/2018 Ordering Physician: VERONICA SCHULZ, Referring Physician: VERONICA SCHULZ, Tech: Jacqui Rouse, RDMS, RVT, RTR APPROVED REPORT Patient Location: OUT-PATIENT Laterality:Bilateral Indications Dizziness and Vertigo Grayscale images of the bilateral common carotid, internal and external carotid vessels demonstrate m ild diffuse intimal hyperplasia with mild diffuse plaque. Spectral waveforms and color Doppler involving the bilateral internal carotid vessels do not demonstr ate any evidence of obstructive disease. Overall 0 to less than 50% stenosis based on velocity criter ia. Normal ICA to CCA ratios bilaterally. Mildly diminished but antegrade vertebral velocities bilaterally. Risk Factors Hypertension: CAD, Dyslipidemia Doppler Spectral Velocity Analysis Right Left pCCA 104/10 cm/spCCA 101/17 cm/s mCCA 104/16 cm/smCCA 111/21 cm/s dCCA 77/15 cm/sdCCA 101/18 cm/s Bulb 81/15 cm/sBulb 86/14 cm/s ECA 96/12 cm/sECA 94/11 cm/s pICA 72/14 cm/spICA 81/24 cm/s Radha 110/25 cm/smICA 89/23 cm/s dICA 124/27 cm/sdICA 58/14 cm/s Vert. 40/74 cm/sVert. 39/10 cm/s ICA/CCA 1.19ICA/CCA 0.79 Critical Notification Critical Value: No <Conclusion> No significant carotid occlusive disease bilaterally. Signed by : Veronica Schulz, Electronically Approved : 11/05/2018 20:26:09
== END | disposition home or self-care (01) ==
LOC: ECHO 13:43
PROVIDERS: ATTEND Internal Medicine Cardiovascular Disease
DX: I08.1 Rheumatic disorders of both mitral and tricuspid valves (principal); I25.10 Atherosclerotic heart disease of native coronary artery without angina pectoris; I77.3 Arterial fibromuscular dysplasia; I10 Essential (primary) hypertension; E78.5 Hyperlipidemia, unspecified; R42 Dizziness and giddiness
CPT/HCPCS: 93306; 93880

== ENCOUNTER 2018-11-14 06:47 | Emergency (ER) | payer MEDICARE, BC ==
[~2018-11-14] VITALS: Ht 160 cm; Wt 72.1 kg
--- NOTE | 2018-11-14 07:14 | PHYS DOC ---
Past History Past Medical History: CAD, Cancer, High Cholesterol, Hypertension Past Surgical History: Other Additional Past Surgical Histo: HERNIA SURGERY Smoking: Non-smoker Alcohol Use: None Drug Use: None Adult General Chief Complaint Chief Complaint: OTHER COMPLAINTS [facility] HPI 73-year-old male presents with tingling in his right foot. Patient had a pins and needle sensation in his right foot today. He was walking down his stairs, it was especially bothersome and he thought he might fall. He caught himself by holding onto the travis. He did not fall. Yesterday, the patient had similar symptoms but they were also in the right hand and the right side of the face. He took a nitroglycerin which he has for coronary artery disease and the symptoms resolved within 1-2 minutes. The symptoms did not return rest of the day. He currently does not have any symptoms. He decided to call EMS this morning because he almost fell down stairs. Patient denies difficulty speaking, headache, change in vision. Patient was recently seen by his PCP this week for this foot tingling. No visual diagnosis was made. The patient is not currently diabetic. He is on cholesterol medication. He's had no recent changes to medicines. He took all of his medications this morning. He denies fever or chills. Review of Systems Review of Systems Constitutional: Denies fever or chills [] Eyes: Denies change in visual acuity, redness, or eye pain [] HENT: Denies nasal congestion or sore throat [] Respiratory: Denies cough or shortness of breath [] Cardiovascular: No additional information not addressed in HPI [] GI: Denies abdominal pain, nausea, vomiting, bloody stools or diarrhea [] : Denies dysuria or hematuria [] Musculoskeletal: Denies back pain or joint pain [] Integument: Denies rash or skin lesions [] Neurologic: Denies headache, focal weakness. Tingling sensation right foot and ankle [] Endocrine: Denies polyuria or polydipsia [] All other systems were reviewed and found to be within normal limits, except as documented in this note. Allergies Allergies Allergies Coded Allergies Type Severity Reaction Last Updated Verified atorvastatin Allergy Intermediate Hives 11/14/18 Yes fenofibrate Allergy Intermediate Hives 11/14/18 Yes rosuvastatin calcium Allergy Intermediate Hives 11/14/18 Yes Physical Exam Physical Exam Constitutional: Well developed, well nourished, no acute distress, non-toxic appearance. [] HENT: Normocephalic, atraumatic, bilateral external ears normal, oropharynx dry, no oral exudates, nose normal. [] Eyes: PERRLA, EOMI, conjunctiva normal, no discharge. [] Neck: Normal range of motion, no tenderness, supple, no stridor. [] Cardiovascular:Heart rate regular rhythm, no murmur [] Lungs & Thorax: Bilateral breath sounds clear to auscultation [] Abdomen: Bowel sounds normal, soft, no tenderness, no masses, no pulsatile masses. [] Skin: Warm, dry, no erythema, no rash. [] Back: No tenderness, no CVA tenderness. [] Extremities: No tenderness, no cyanosis, no clubbing, ROM intact, no edema. [] Neurologic: Alert and oriented X 3, normal motor function, normal sensory function, no focal deficits noted. [] Psychologic: Affect normal, judgement normal, mood normal. [] Current Patient Data Vital Signs Vital Signs Date Time Temp Pulse Resp B/P (MAP) Pulse Ox O2 Delivery O2 Flow Rate FiO2 11/14/18 07:02 97.5 79 18 99 Room Air EKG EKG [] Radiology/Procedures Radiology/Procedures [] Impressions: Examination: CT HEAD WO CONTRAST History: Paresthesias involving the right side of the face and right foot Comparison/Correlation: 06/03/2018 CT orbits, 05/21/2014 CT head and cervical spine Findings: Axial images of the head were obtained without contrast. Mild atrophy is present. No intracranial hemorrhage, midline shift, or mass effect. Bony structures are intact. No evidence of evolving infarct. Ventricles are unremarkable. Impression: No acute process. PQRS Compliance Statement: One or more of the following individualized dose reduction techniques were utilized for this examination: 1. Automated exposure control 2. Adjustment of the mA and/or kV according to patient size 3. Use of iterative reconstruction technique Electronically signed by: Luzma Painter MD (11/14/2018 7:38 AM) [facility] DICTATED AND SIGNED BY: LUZMA PAINTER MD DATE: 11/14/18 0738 CC: MARZENA ROSARIO DO; DINESH VANCE DO ~ Course & Med Decision Making Course & Med Decision Making Pertinent Labs and Imaging studies reviewed. (See chart for details) The patient's labs are unremarkable. His head CT is negative for acute findings. His symptoms could be TIA. He does have coronary artery disease. This puts him at increased risk for other vessel blockages. I will advise that he follow-up with his PCP. They may consider an MRI. I also told them if more concerning symptoms develop such as slurred speech, extremity weakness, etc. he should come back to the emergency room. He states verbal understanding. He is stable for discharge at this time. [] Dragon Disclaimer Dragon Disclaimer This electronic medical record was generated, in whole or in part, using a voice recognition dictation system. Departure Departure: Impression: Primary Impression: Numbness and tingling in right hand Additional Impression: Numbness and tingling of foot Disposition: 01 HOME, SELF-CARE Condition: STABLE Referrals: MARZENA ROSARIO DO (PCP) Patient Instructions: Transient Ischemic Attack, [id number] Problem Qualifiers DINESH VANCE DO Nov 14, 2018 07:14
[2018-11-14] MEDS ORDERED: IV NORMAL SALINE 1,000ML 1,000 ML IV ONE (07:15)
--- NOTE | 2018-11-14 07:41 | RAD ---
Examination: CT HEAD WO CONTRAST History: Paresthesias involving the right side of the face and right foot Comparison/Correlation: 06/03/2018 CT orbits, 05/21/2014 CT head and cervical spine Findings: Axial images of the head were obtained without contrast. Mild atrophy is present. No intracranial hemorrhage, midline shift, or mass effect. Bony structures are intact. No evidence of evolving infarct. Ventricles are unremarkable. Impression: No acute process. PQRS Compliance Statement: One or more of the following individualized dose reduction techniques were utilized for this examination: 1. Automated exposure control 2. Adjustment of the mA and/or kV according to patient size 3. Use of iterative reconstruction technique Electronically signed by: Paul Naidu MD (11/14/2018 7:38 AM) [facility]
[2018-11-14 07:42] LABS: BASO % 0 % (0-3); EOS # 0.1 x10^3/uL (0.0-0.7); EOS % 2 % (0-3); HEMATOCRIT 45.5 % (39.0-53.0); HEMOGLOBIN 15.8 g/dL (13.0-17.5); LYMPH # 0.9 x10^3/uL (1.0-4.8); LYMPH % 16 % (24-48); MEAN CORPUSCULAR HEMOGLOBIN 32 pg (25-35); MEAN CORPUSCULAR HGB CONC 35 g/dL (31-37); MEAN CORPUSCULAR VOLUME 93 fL (79-100); MONO # 0.4 x10^3/uL (0.0-1.1); MONO % 7 % (0-9); NEUT # 4.3 x10^3uL (1.8-7.7); NEUT % 74 % (31-73); PLATELET COUNT 236 x10^3/uL (140-400); RED BLOOD COUNT 4.87 x10^6/uL (4.30-5.70); RED CELL DISTRIBUTION WIDTH 12.9 % (11.5-14.5); WHITE BLOOD COUNT 5.8 x10^3/uL (4.0-11.0)
[2018-11-14 07:50] LABS: ALBUMIN/GLOBULIN RATIO 1.1 (1.0-1.7); CALCIUM 9.7 mg/dL (8.5-10.1); CREATININE 1.3 mg/dL (0.7-1.3); GFR 54.4; POTASSIUM 4.6 mmol/L (3.5-5.1); TOTAL BILIRUBIN 0.7 mg/dL (0.2-1.0); TOTAL PROTEIN 7.6 g/dL (6.4-8.2)
[2018-11-14 08:33] LABS: AMORPHOUS SEDIMENT,UR PRESENT /HPF; BACTERIA,URINE 0 /HPF (0-FEW); BILIRUBIN,URINE NEG (NEG); CLARITY,URINE HAZY; COLOR,URINE AMBER; GLUCOSE,URINE NEG (NEG); NITRITE,URINE NEG (NEG); RBC,URINE 0 /HPF (0-2); SQUAMOUS EPITHELIAL CELL,UR OCC /LPF; UROBILINOGEN,URINE 0.2 mg/dL (0.2 mg/dL); WBC,URINE 0 /HPF (0-4)
[2018-11-14 08:39] LABS: BARBITURATES NEG (NEG); BENZODIAZEPINES NEG (NEG); CANNABINOIDS NEG (NEG); COCAINE NEG (NEG); METHADONE NEG (NEG); OPIATES NEG (NEG); PHENCYCLIDINE NEG (NEG)
[2018-11-14 08:49] VITALS: BP 159/82
[2018-11-14 08:54] LABS: AMPHETAMINE/METHAMPHETAMINE NEG (NEG)
== END 2018-11-14 08:50 | disposition home or self-care (01) ==
LOC: ER 06:47
DX: R20.2 Paresthesia of skin (principal); I10 Essential (primary) hypertension; I25.10 Atherosclerotic heart disease of native coronary artery without angina pectoris; E78.00 Pure hypercholesterolemia, unspecified; Z88.8 Allergy status to other drugs, medicaments and biological substances
CPT/HCPCS: 36415; 70450; 80053; 80307; 81001; 85025; 99285-25; J7030

== ENCOUNTER 2018-12-22 03:36 | Emergency (ER) | payer MEDICARE, BC ==
[~2018-12-22] VITALS: Ht 160 cm; Wt 75.0 kg
[~2018-12-22 03:36] MED LIST changes: -MOME45CR2 TP; +MOME45CR3 TP; +OMEP40CA45 PO; -OMEP40CA5 PO
--- NOTE | 2018-12-22 04:21 | RAD ---
PQRS Compliance statement: One or more of the following individualized dose reduction techniques were utilized for this examination: 1. Automated exposure control. 2. Adjustment of the mA and/or kV according to patient size. 3. Use of iterative reconstruction technique. Indication:Code stroke. TECHNIQUE: CT head without IV contrast COMPARISON: 11/14/2018 FINDINGS: No pathologic extra-axial or intra-axial fluid collection. The ventricles and basal cisterns are within normal limits. No acute intracranial bleed. No focal loss of guaman-white differentiation. Orbits are within normal limits. No suspicious calvarial lesion. Visualized paranasal sinuses and mastoid air cells are clear. IMPRESSION: No acute intracranial bleed. If concern for acute ischemic stroke is high, please consider MRI brain. Critical findings were identified on 12/22/2018 4:14 AM, read back and verified with Dr. Naqvi on 12/22/2018 4:[address] Alfonso Parmar DO. Electronically signed by: Alfonso Parmar DO (12/22/2018 4:19 AM) [id number]
[2018-12-22 04:51] LABS: BASO % 0 % (0-3); EOS # 0.1 x10^3/uL (0.0-0.7); EOS % 2 % (0-3); HEMATOCRIT 46.7 % (39.0-53.0); HEMOGLOBIN 16.3 g/dL (13.0-17.5); LYMPH # 1.1 x10^3/uL (1.0-4.8); LYMPH % 18 % (24-48); MEAN CORPUSCULAR HEMOGLOBIN 33 pg (25-35); MEAN CORPUSCULAR HGB CONC 35 g/dL (31-37); MEAN CORPUSCULAR VOLUME 94 fL (79-100); MONO # 0.4 x10^3/uL (0.0-1.1); MONO % 7 % (0-9); NEUT # 4.5 x10^3uL (1.8-7.7); NEUT % 72 % (31-73); PLATELET COUNT 211 x10^3/uL (140-400); RED CELL DISTRIBUTION WIDTH 12.7 % (11.5-14.5); WHITE BLOOD COUNT 6.2 x10^3/uL (4.0-11.0)
[2018-12-22 04:53] LABS: ALBUMIN 3.9 g/dL (3.4-5.0); CALCIUM 9.8 mg/dL (8.5-10.1); CREATININE 1.2 mg/dL (0.7-1.3); GFR 59.7; TOTAL BILIRUBIN 0.7 mg/dL (0.2-1.0); TOTAL PROTEIN 7.9 g/dL (6.4-8.2)
[2018-12-22 06:35] VITALS: BP 151/88
--- NOTE | 2018-12-22 06:39 | PHYS DOC ---
Past History Past Medical History: CAD, Cancer, High Cholesterol, Hypertension, NM (ZACARIAS MENA MD) Past Surgical History: Other Additional Past Surgical Histo: HERNIA SURGERY (ZACARIAS MENA MD) Smoking: Non-smoker Alcohol Use: None Drug Use: None (ZACARIAS MENA MD) Adult General Chief Complaint Chief Complaint: NEURO SYMPTOMS/DEFICITS HPI HPI Patient is a 73 male with history of hypertension, CAD and CVA who presents with paresthesias of right face, right hand and right foot. Symptom onset was first noticed at 02:00 when getting up to use the bathroom. Last known normal was 8:30 PM. Patient reports heaviness in the arm but otherwise denies motor weakness. Report dizziness upon standing. Denies headache, change in vision, speech impairment, difficulty swallowing and ataxia. Patient was seen in the emergency department one month ago and diagnosed with a TIA. He is currently taking Plavix and aspirin. No other acute symptoms or complaintss. [] (ZACARIAS MENA MD) Review of Systems Review of Systems ROS as per HPI All other systems were reviewed and found to be within normal limits, except as documented in this note. (ZACARIAS MENA MD) Allergies Allergies Allergies Coded Allergies Type Severity Reaction Last Updated Verified atorvastatin Allergy Intermediate Hives 11/14/18 Yes fenofibrate Allergy Intermediate Hives 11/14/18 Yes rosuvastatin calcium Allergy Intermediate Hives 11/14/18 Yes ezetimibe Allergy Unknown 12/22/18 Yes pravastatin Allergy Unknown 12/22/18 Yes simvastatin Allergy Unknown 12/22/18 Yes (ZACARIAS MENA MD) Physical Exam Physical Exam Constitutional: Well developed, well nourished, no acute distress, non-toxic appearance. [] HENT: Normocephalic, atraumatic, bilateral external ears normal, oropharynx moist, no oral exudates, nose normal. [] Eyes: PERRLA, EOMI, conjunctiva normal, no discharge. [] Neck: Normal range of motion, no tenderness, supple, no stridor. [] Cardiovascular:Heart rate regular rhythm, no murmur [] Lungs & Thorax: Bilateral breath sounds clear to auscultation [] Abdomen: Bowel sounds normal, soft, no tenderness, no masses. [] Skin: Warm, dry, no erythema, no rash. [] Back: No tenderness, no CVA tenderness. [] Extremities: No tenderness, no cyanosis, no clubbing, ROM intact, no edema. [] Neurologic: Alert and oriented X 3, cranial nerves II through XII grossly intact, normal motor function, normal sensory function, no focal deficits noted. [] Psychologic: Affect normal, judgement normal, mood normal. [] (ZACARIAS MENA MD) Current Patient Data Vital Signs Vital Signs Date Time Temp Pulse Resp B/P (MAP) Pulse Ox O2 Delivery O2 Flow Rate FiO2 12/22/18 03:36 97.5 90 20 99 Room Air Lab Results Laboratory Tests Test 12/22/18 04:23 White Blood Count 6.2 x10^3/uL (4.0-11.0) Red Blood Count 5.00 x10^6/uL (4.30-5.70) Hemoglobin 16.3 g/dL (13.0-17.5) Hematocrit 46.7 % (39.0-53.0) Mean Corpuscular Volume 94 fL (79-100) Mean Corpuscular Hemoglobin 33 pg (25-35) Mean Corpuscular Hemoglobin Concent 35 g/dL (31-37) Red Cell Distribution Width 12.7 % (11.5-14.5) Platelet Count 211 x10^3/uL (140-400) Neutrophils (%) (Auto) 72 % (31-73) Lymphocytes (%) (Auto) 18 % (24-48) L Monocytes (%) (Auto) 7 % (0-9) Eosinophils (%) (Auto) 2 % (0-3) Basophils (%) (Auto) 0 % (0-3) Neutrophils # (Auto) 4.5 x10^3uL (1.8-7.7) Lymphocytes # (Auto) 1.1 x10^3/uL (1.0-4.8) Monocytes # (Auto) 0.4 x10^3/uL (0.0-1.1) Eosinophils # (Auto) 0.1 x10^3/uL (0.0-0.7) Basophils # (Auto) 0.0 x10^3/uL (0.0-0.2) Prothrombin Time 10.2 SEC (9.4-11.4) Prothrombin Time INR 1.0 (0.9-1.1) Activated Partial Thromboplast Time 23 SEC (23-33) Sodium Level 138 mmol/L (136-145) Potassium Level 4.0 mmol/L (3.5-5.1) Chloride Level 102 mmol/L (98-107) Carbon Dioxide Level 28 mmol/L (21-32) Anion Gap 8 (6-14) Blood Urea Nitrogen 18 mg/dL (8-26) Creatinine 1.2 mg/dL (0.7-1.3) Estimated GFR (Cockcroft-Gault) 59.7 BUN/Creatinine Ratio 15 (6-20) Glucose Level 120 mg/dL (70-99) H Calcium Level 9.8 mg/dL (8.5-10.1) Total Bilirubin 0.7 mg/dL (0.2-1.0) Aspartate Amino Transferase (AST) 21 U/L (15-37) Alanine Aminotransferase (ALT) 30 U/L (16-63) Alkaline Phosphatase 58 U/L (46-116) Total Protein 7.9 g/dL (6.4-8.2) Albumin 3.9 g/dL (3.4-5.0) Albumin/Globulin Ratio 1.0 (1.0-1.7) (ZACARIAS MENA MD) EKG EKG [EKG: Reviewed] (ZACARIAS MENA MD) Radiology/Procedures Radiology/Procedures [CT head: No acute intercranial hemorrhage per radiology report.] (ZACARIAS MENA MD) Course & Med Decision Making Course & Med Decision Making Pertinent Labs and Imaging studies reviewed. (See chart for details) [Patient's symptoms improved fashion resolved while in the ED. Hospital admission offered for further evaluation and neurology consultation. Patient declines. He states he has follow-up with his neurologist in 2 days. He agrees to take Plavix and aspirin until he is able disease neurologist follow-up. Patient will be discharged from the emergency department at his request.] (ZACARIAS MENA MD) Course & Med Decision Making Dr. Tomas did not evaluated this patient and are documented on this patient. This patient was mistakenly charted on by Dr. González Naqvi under Dr. Mena's account. All patient care and documentation was provided by Dr. González Naqvi. (GONZÁLEZ NAQVI DO) Dragon Disclaimer Dragon Disclaimer This electronic medical record was generated, in whole or in part, using a voice recognition dictation system. (ZACARIAS MENA MD) Departure Departure: Impression: Primary Impression: CVA (cerebral vascular accident) Disposition: HOME, SELF-CARE Condition: STABLE Patient Instructions: Stroke, [id number], Dizziness, [id number] Additional Instructions: Please continue current medications and follow up with Dr. Tilley on Saturday. ZACARIAS MENA MD Dec 22, 2018 06:39 GONZÁLEZ NAQVI DO Dec 22, 2018 06:43
--- NOTE | 2018-12-23 11:28 | EKG ---
[address] [address] Test Date: 2018-12-22 Test Time: 04:31:25 Pat Name: KOBY ASIF Department: Room: Gender: M Risk Management Director: : 1945 Requested By: DINESH PUGH Order Number: [id number] Reading MD: Measurements Intervals Lavinia Rate: 78 P: 34 DE: 174 QRS: -40 QRSD: 94 T: 64 QT: 388 QTc: 446 Interpretive Statements SINUS RHYTHM ABNORMAL LEFT AXIS DEVIATION R-S TRANSITION ZONE IN V LEADS DISPLACED TO THE LEFT LEFT ANTERIOR FASCICULAR BLOCK T ABNORMALITY IN HIGH LATERAL LEADS ABNORMAL ECG RI6.01 No previous ECG available for comparison
== END 2018-12-22 06:38 | disposition home or self-care (01) ==
LOC: ER 03:36
DX: I63.9 Cerebral infarction, unspecified (principal); R20.2 Paresthesia of skin; R42 Dizziness and giddiness; I25.10 Atherosclerotic heart disease of native coronary artery without angina pectoris; E78.00 Pure hypercholesterolemia, unspecified; I10 Essential (primary) hypertension; I25.2 Old myocardial infarction; Z88.8 Allergy status to other drugs, medicaments and biological substances
CPT/HCPCS: 36415; 70450; 80053; 85025; 85610; 85730; 93005; 99285

== ENCOUNTER 2019-05-24 22:27 | Inpatient (IN) | payer MEDICARE, BC ==
[~2019-05-24] VITALS: Ht 160 cm; Wt 73.3 kg
[~2019-05-24 22:27] MED LIST changes: +FENO145T3 PO; -FENO145T30 PO
--- NOTE | 2019-05-24 22:39 | PHYS DOC ---
Past History Past Medical History: Angina, CAD, Cancer, Constipation, GERD, High Cholesterol, Heart Disease, Hypertension, Hypothyroid, SD, TIA, Other Past Medical History Hx. of Ext. Beam Radiation for Prostate Cancer, and Polypectomy for colon cancer 2007 Past Surgical History: Other Additional Past Surgical Histo: HERNIA SURGERY Smoking: Non-smoker Alcohol Use: None Drug Use: None Adult General Chief Complaint Chief Complaint: ".. I had some chest discomfort.. and noticed I had some double vision... it started around 8 pm...I took some aspirin.. but chest and vision changes.. I took some aspirin.. double vision and chest discomfort ... have not totally gone away yet.. I had a small heart attack back in 2017.. and my doc.. though I may have had TIA in the past... " HPI HPI Patient is a 74 year old male who presents with above hx and complaints of chest discomfort and double vision starting approximately 2000 hours tonight. Patient states he took a full dose of aspirin that time. Patient states he still has some vague discomfort in double vision with extremes of eye deviation both up and down and side to side. Double vision resolves when he closes one eye. The patient has chronic decreased vision in right eye. Patient advised he has had a previous small SD in 2007 and history of colon cancer diagnosed in 2007. Cancer colon was treated with polypectomy. Patient has history of prostate cancer treated with external beam radiation. Pt. follows with Dr. Doan. cardiology , Dr. Luna neurology, Dr. Bardales ophthalmology and Dr. Strange for primary No recent travel outside of the [place] area. No specific ill contacts. No history of trauma. Patient does have a history of hypertension, history of prior TIA, dry eye syndrome, hypothyroidism, hypertension, constipation, angina, coronary artery disease, elevated cholesterol, GERD, prostate, colon cancers, hx [place] on Lt side face and arthritis. Review of Systems Review of Systems Constitutional: Denies fever or chills [] Eyes: Denies change in visual acuity, redness, or eye pain []Complaints of double visions. HENT: Denies nasal congestion or sore throat [] Respiratory: Denies cough or shortness of breath [] Cardiovascular: No additional information not addressed in HPI [] GI: Denies abdominal pain, nausea, vomiting, bloody stools or diarrhea [] : Denies dysuria or hematuria [] Musculoskeletal: Denies back pain or joint pain [] Integument: Denies rash or skin lesions [] Neurologic: Denies headache, focal weakness or sensory changes [] Endocrine: Denies polyuria or polydipsia [] All other systems were reviewed and found to be within normal limits, except as documented in this note. Family History Family History Noncontributory Current Medications Current Medications See nursing for home meds Allergies Allergies Allergies Coded Allergies Type Severity Reaction Last Updated Verified atorvastatin Allergy Intermediate Hives 11/14/18 Yes fenofibrate Allergy Intermediate Hives 11/14/18 Yes rosuvastatin calcium Allergy Intermediate Hives 11/14/18 Yes ezetimibe Allergy Unknown 12/22/18 Yes pravastatin Allergy Unknown 12/22/18 Yes simvastatin Allergy Unknown 12/22/18 Yes Physical Exam Physical Exam Constitutional: no acute distress, non-toxic appearance. [] HENT: Normocephalic, atraumatic, bilateral external ears normal, oropharynx moist, no oral exudates, nose normal. [] Eyes: PERRLA, EOMI, conjunctiva normal, no discharge. Crease vision in right eye as compared to left eye. Squints with Rt. eye. Lt facial flatness ( Hx of [place]).. Limited Fundus exam. Neck: Normal range of motion, no tenderness, supple, no stridor. No bruits appreciated Cardiovascular: Tachycardia Heart rate regular rhythm, no murmur , PMI to Lt. Lungs & Thorax: Bilateral breath sounds equal at apex with a few scattered wheezes on auscultation [] Abdomen: Bowel sounds normal, soft, no tenderness, no masses, no pulsatile masses. [] Skin: Warm, dry, no erythema, no rash. [] Back: No tenderness, no CVA tenderness. [] Extremities: No tenderness, no cyanosis, no clubbing, ROM intact, no edema. [] Neurologic: Alert and oriented X 3, moves extremities on request, has distal sensory function, no focal deficits noted. []DTRs +2 patella and brachial. Ambulatory with out problems. Psychologic: Affect anxious, judgement normal, mood normal. [] EKG EKG My interpretation EKG shows a sinus rhythm at 95 bpm. There is left axis deviation. There is fascicular block. Nonspecific ST changes but no findings acute STEMI of contralateral changes[] Radiology/Procedures Radiology/Procedures [[address] [address] IMAGING REPORT Signed PATIENT: KOBY ASIF ACCOUNT: [id number] : 1945 LOCATION: ER AGE: 74 SEX: M EXAM STATUS: REG ER ORD. PHYSICIAN: ALAN DODD MD REASON: stroke protocol, double vision on set 2000 hrs. , hx prior TIA PROCEDURE: CT HEAD WO CONTRAST CT HEAD WO CONTRAST Date: 05/24/2019 10:39 PM Clinical Indication: Diplopia, history of TIA Comparison: 12/22/2018. Technique: 5 mm axial tomographic images were obtained of the head without contrast. These were viewed on brain and bone windows. One or more of the following dose reduction techniques were utilized: Automated exposure control (AEC), Adjustment of mA and/or kV according to patient size, Use of iterative reconstruction technique such as ASiR, CT scan done according to ALARA and image gently/image wisely Findings: Mild generalized cerebral and cerebellar volume loss. Mild nonspecific periventricular hypoattenuation, most commonly seen with chronic small vessel ischemic disease. Calcified atherosclerosis of the bilateral cavernous and paraclinoid internal carotid arteries and intracranial vertebral arteries. No intra- or extra-axial mass or fluid collection. No acute hemorrhage. The ventricles are normal in size, shape, and morphology. The guaman-white matter junction is normal. The subarachnoid cisterns are patent. The visualized paranasal sinuses are normal. The visualized portions of the orbits and globes are normal. The mastoid air cells are clear. The turbine assembler topogram shows no lytic lesion or fracture. Impression: No acute intracranial process. Mild cerebral volume loss. Mild chronic small vessel ischemic disease. Electronically signed by: Kamila Sandoval MD (05/24/2019 11:05 PM) [id number] DICTATED AND SIGNED BY: KAMILA SANDOVAL MD DATE: 05/24/19 [id number] CC: MARZENA ROSARIO DO; ALAN DODD MD ~ ][address] [address] IMAGING REPORT Signed PATIENT: KOBY ASIF ACCOUNT: [id number] : 1945 LOCATION: ER AGE: 74 SEX: M EXAM STATUS: REG ER ORD. PHYSICIAN: ALAN DODD MD REASON: cp PROCEDURE: CHEST PA & LATERAL CHEST PA LATERAL INDICATION: Chest pain. COMPARISON STUDY: 11/11/2017. FINDINGS: Lungs: Normal lung volume. Stable right basilar linear opacities, likely subsegmental atelectasis or linear fibrosis. No new consolidation. The tracheobronchial tree and hilar structures are normal. Pleura: No pleural effusion or pneumothorax. Heart and Mediastinum: The cardiomediastinal silhouette is normal. Atherosclerosis of the thoracic aorta. IMPRESSION: No consolidation. Electronically signed by: Kamila Sandoval MD (05/25/2019 12:07 AM) [id number] DICTATED AND SIGNED BY: KAMILA SANDOVAL MD DATE: 05/25/19 0007 CC: MARZENA ROSARIO DO; ALAN DODD MD ~ Course & Med Decision Making Course & Med Decision Making Pertinent Labs and Imaging studies reviewed. (See chart for details) Discussed at length risk of TPA. Pt. declines any consideration for it use at this time. Min. NHISS 1-2, repeat in 30 min showed no acute changes. Heart Score 5-[address] Arevalo with consults to cardiology and neurology. (Possible consult to Optho- see 's Reifschneider locally) Impression: 1. Chest pain 2. TIA 3. Double Vision 4. Hx of Endothelial Corneal Dystrophy 5. Elevated D-dimer 0.63 6. Hypertension [] Dragon Disclaimer Dragon Disclaimer This electronic medical record was generated, in whole or in part, using a voice recognition dictation system. Departure Departure: Disposition: 01 HOME/RESIDENCE PRIOR TO ADM Condition: STABLE Referrals: MARZENA ROSARIO DO (PCP) [place] Disclaimer This chart was dictated in whole or in part using Voice Recognition software in a busy, high-work load, and often noisy Emergency Department environment. It may contain unintended and wholly unrecognized errors or omissions. ALAN DODD MD May 24, 2019 22:39
[2019-05-24] MEDS ORDERED: IV RINGERS SOLUTION,LACTATED 1,000 ML IV SCH (22:45)
--- NOTE | 2019-05-24 23:08 | RAD ---
CT HEAD WO CONTRAST Date: 05/24/2019 10:39 PM Clinical Indication: Diplopia, history of TIA Comparison: 12/22/2018. Technique: 5 mm axial tomographic images were obtained of the head without contrast. These were viewed on brain and bone windows. One or more of the following dose reduction techniques were utilized: Automated exposure control (AEC), Adjustment of mA and/or kV according to patient size, Use of iterative reconstruction technique such as ASiR, CT scan done according to ALARA and image gently/image wisely Findings: Mild generalized cerebral and cerebellar volume loss. Mild nonspecific periventricular hypoattenuation, most commonly seen with chronic small vessel ischemic disease. Calcified atherosclerosis of the bilateral cavernous and paraclinoid internal carotid arteries and intracranial vertebral arteries. No intra- or extra-axial mass or fluid collection. No acute hemorrhage. The ventricles are normal in size, shape, and morphology. The guaman-white matter junction is normal. The subarachnoid cisterns are patent. The visualized paranasal sinuses are normal. The visualized portions of the orbits and globes are normal. The mastoid air cells are clear. The center director topogram shows no lytic lesion or fracture. Impression: No acute intracranial process. Mild cerebral volume loss. Mild chronic small vessel ischemic disease. Electronically signed by: Sundar Sandoval MD (05/24/2019 11:05 PM) [id number]
[2019-05-24 23:38] LABS: CREATININE 1.3 mg/dL (0.7-1.3); GFR 54.3
[2019-05-24 23:46] LABS: BASO % 1 % (0-3); EOS # 0.2 x10^3/uL (0.0-0.7); EOS % 3 % (0-3); HEMATOCRIT 47.2 % (39.0-53.0); HEMOGLOBIN 16.5 g/dL (13.0-17.5); LYMPH # 1.5 x10^3/uL (1.0-4.8); LYMPH % 21 % (24-48); MEAN CORPUSCULAR HEMOGLOBIN 33 pg (25-35); MEAN CORPUSCULAR HGB CONC 35 g/dL (31-37); MEAN CORPUSCULAR VOLUME 94 fL (79-100); MONO # 0.6 x10^3/uL (0.0-1.1); MONO % 8 % (0-9); NEUT # 4.9 x10^3uL (1.8-7.7); NEUT % 68 % (31-73); PLATELET COUNT 228 x10^3/uL (140-400); RED BLOOD COUNT 5.01 x10^6/uL (4.30-5.70); WHITE BLOOD COUNT 7.3 x10^3/uL (4.0-11.0)
[2019-05-24 23:50] LABS: ALBUMIN 4.3 g/dL (3.4-5.0); DIRECT BILIRUBIN 0.2 mg/dL (0.0-0.2); MAGNESIUM 2.1 mg/dL (1.8-2.4); TOTAL BILIRUBIN 0.6 mg/dL (0.2-1.0); TOTAL PROTEIN 8.3 g/dL (6.4-8.2)
--- NOTE | 2019-05-25 00:10 | RAD ---
CHEST PA LATERAL INDICATION: Chest pain. COMPARISON STUDY: 11/11/2017. FINDINGS: Lungs: Normal lung volume. Stable right basilar linear opacities, likely subsegmental atelectasis or linear fibrosis. No new consolidation. The tracheobronchial tree and hilar structures are normal. Pleura: No pleural effusion or pneumothorax. Heart and Mediastinum: The cardiomediastinal silhouette is normal. Atherosclerosis of the thoracic aorta. IMPRESSION: No consolidation. Electronically signed by: Sundar Sandoval MD (05/25/2019 12:07 AM) [id number]
[2019-05-25 00:43] LABS: SEDIMENTATION RATE 2 (0-15)
[2019-05-25 01:12] LABS: AMPHETAMINE/METHAMPHETAMINE NEG (NEG); BARBITURATES NEG (NEG); BENZODIAZEPINES NEG (NEG); CANNABINOIDS NEG (NEG); COCAINE NEG (NEG); METHADONE NEG (NEG); OPIATES NEG (NEG); PHENCYCLIDINE NEG (NEG)
[2019-05-25 01:27] LABS: BACTERIA,URINE 0 /HPF (0-FEW); BILIRUBIN,URINE NEG (NEG); CLARITY,URINE HAZY; COLOR,URINE YELLOW; GLUCOSE,URINE NEG (NEG); NITRITE,URINE NEG (NEG); RBC,URINE 0 /HPF (0-2); SQUAMOUS EPITHELIAL CELL,UR OCC /LPF; UROBILINOGEN,URINE 0.2 mg/dL (0.2 mg/dL); WBC,URINE OCC /HPF (0-4)
[2019-05-25 01:28] LABS: AMORPHOUS SEDIMENT,UR PRESENT /HPF
[2019-05-25] MEDS ORDERED: ACETAMINOPHEN 325 MG TABLET PO PRN (02:45)
[2019-05-25] MEDS ORDERED: ONDANSETRON PF 4 MG/2 ML VIAL. IVP PRN (02:45)
[2019-05-25] MEDS ORDERED: IPRATRPIUM/ALBUTEROL 0.5/2.5MG 3 ML NEBU. ONE (03:08)
[2019-05-25 03:58] VITALS: BP 158/81
--- NOTE | 2019-05-25 04:30 | NUR ---
Pt admitted via EMS from ER to room 117 for c/o of double vision, possible TIA, chest pain. Pt presents A&OX3. Pt denies any complaints of pain at this time. Pt states that his chest pain, was really a slight tingle in his chest while walking up the steps at home while trying to get ready to come to the ER, and quickly went away. Stated it was only about a 1 out of 10 and has had no other pain since. Pt states he continues to have double vision, which has been going on since about 8pm last night. A full assessment completed and history obtained. Pt oriented to unit, nurse, call light and plan of care. V/U stated.
[2019-05-25 04:51] LABS: INFLUENZA A PATIENT NEGATIVE (NEGATIVE); INFLUENZA B PATIENT NEGATIVE (NEGATIVE)
[2019-05-25] MEDS ORDERED: CLOP75TA57 PO (04:51)
[2019-05-25] MEDS ORDERED: PITA2TAB2 PO (04:51)
[2019-05-25] MEDS ORDERED: RANO10002 PO (04:51)
[2019-05-25] MEDS ORDERED: NITR0.4T22 SL (04:51)
[2019-05-25] MEDS ORDERED: CLON1TAB PO (04:51)
[2019-05-25] MEDS ORDERED: PANT40TA3 PO (04:51)
[2019-05-25] MEDS ORDERED: OMEG1CAP38 PO (04:51)
[2019-05-25] MEDS ORDERED: ISOS30TA4 PO (04:51)
[2019-05-25] MEDS ORDERED: LEVO100T5 PO (04:51)
[2019-05-25] MEDS ORDERED: METO25TA4 PO (04:51)
[2019-05-25] MEDS ORDERED: DEXT15DR17 OP (04:51)
[2019-05-25] MEDS ORDERED: ASPIRIN 81 MG TAB.CHEW PO SCH (08:00)
[2019-05-25] MEDS ORDERED: IPRATRPIUM/ALBUTEROL 0.5/2.5MG 3 ML NEBU. NEB SCH (08:00)
--- NOTE | 2019-05-25 08:41 | PDOC2 ---
CARDIAC CONSULT DATE OF CONSULT Date Of Consult DATE: 05/25/19 TIME: 08:37 REASON FOR CONSULT Reason for Consult Chest pain REFERRING PHYSICIAN Referring Physician Dr. Maguire SOURCE Source: Chart review, Patient HPI History of Present Illness This is a 74 yo male who presented secondary to chest pain and double vision. Patient reports this began about 8pm last night. Reports he was kind of worked up due to his double vision. He when up and down the flight of stair in his home and had brief episode of pressure in his chest. Symptoms resolved within seconds. No associated dizziness, diaphoresis, palpitations, SOA, or nausea/vomiting. No further chest pain. PAST MEDICAL HISTORY Past Medical History CAD (PCI/PATY to mid-RCA and left circ), HTN, MS, Hyperlipidemia CENTRAL NERVOUS SYSTEM: TIA Heme/Onc: Cancer (prostate, colorectal ) PAST SURGICAL HISTORY Past Surgical History: Other (See above ) FAMILY HISTORY Family History: Heart Disease SOCIAL HISTORY Smoke: No ALCOHOL: none Drugs: None Lives: Alone CURRENT MEDICATIONS Current Medications Current Medications Lactated Ringer's 1,000 ml @ 100 mls/hr Q10H IV Last administered on 05/24/19at 23:15; Start 05/24/19 at 22:45; Stop 05/25/19 at 08:44 Ondansetron HCl (Zofran) 4 mg PRN Q4HRS PRN IVP NAUSEA/VOMITING; Start 05/25/19 at 02:45; Stop 05/26/19 at 02:44 Acetaminophen (Tylenol) 650 mg PRN Q4HRS PRN PO FEVER; Start 05/25/19 at 02:45; Stop 05/26/19 at 02:44 Albuterol/ Ipratropium (Duoneb) 3 ml RTQID NEB Last administered on 05/25/19at 04:57; Start 05/25/19 at 08:00; Stop 05/26/19 at 07:59 Aspirin (Children'S Aspirin) 81 mg DAILYWBKFT PO ; Start 05/25/19 at 08:00 Enoxaparin Sodium (Lovenox 60mg Syringe) 60 mg BID SQ ; Start 05/25/19 at 09:00; Status UNV Albuterol/ Ipratropium (Duoneb) 3 ml STK-MED ONCE .ROUTE ; Start 05/25/19 at 03:08; Stop 05/25/19 at 03:08; Status DC Active Scripts Active Reported Ranexa (Ranolazine) 1,000 Mg Tab.er.12h 1,000 Mg PO BID LAST DOSE GIVEN: DATE: TIME: NEXT DOSE DUE: DATE: TIME: Protonix (Pantoprazole Sodium) 40 Mg Tablet.dr 40 Mg PO DAILY LAST DOSE GIVEN: DATE: TIME: NEXT DOSE DUE: DATE: TIME: Lottie 3 Fish Oil Softgel (Lottie-3 Fatty Acids/Fish Oil) 1 Each Capsule.dr 1 Cap PO TID LAST DOSE GIVEN: DATE: TIME: NEXT DOSE DUE: DATE: TIME: NITROGLYCERIN SubLingual (Nitroglycerin) 0.4 Mg Tab.subl 0.4 Mg SL PRN Q5MIN PRN LAST DOSE GIVEN: DATE: TIME: NEXT DOSE DUE: DATE: TIME: Metoprolol Tartrate 25 Mg Tablet 25 Mg PO BID LAST DOSE GIVEN: DATE: TIME: NEXT DOSE DUE: DATE: TIME: Livalo (Pitavastatin Calcium) 2 Mg Tablet 2 Mg PO DAILY LAST DOSE GIVEN: DATE: TIME: NEXT DOSE DUE: DATE: TIME: Isosorbide Mononitrate Er (Isosorbide Mononitrate) 30 Mg Tab.er.24h 30 Mg PO DAILY LAST DOSE GIVEN: DATE: TIME: NEXT DOSE DUE: DATE: TIME: Genteal Tears 0.1%-0.2%-0.3% (Dextran/Hypromellose/Glycerin) 15 Ml Drops 2 Drop OP HS LAST DOSE GIVEN: DATE: TIME: NEXT DOSE DUE: DATE: TIME: Plavix (Clopidogrel Bisulfate) 75 Mg Tablet 75 Mg PO DAILY LAST DOSE GIVEN: DATE: TIME: NEXT DOSE DUE: DATE: TIME: Klonopin (Clonazepam) 1 Mg Tablet 1 Mg PO HS LAST DOSE GIVEN: DATE: TIME: NEXT DOSE DUE: DATE: TIME: Levothyroxine Sodium 100 Mcg Tablet 100 Mcg PO DAILYAC LAST DOSE GIVEN: DATE: TIME: NEXT DOSE DUE: DATE: TIME: Caltrate 600 + D Soft Chew Tab (Calcium Carbonate/Vitamin D3) 1 Each Tab.chew 1 Tab PO TID LAST DOSE GIVEN: DATE: TIME: NEXT DOSE DUE: DATE: TIME: Acetaminophen 500 Mg Tablet 500 Mg PO BID PRN LAST DOSE GIVEN: DATE: TIME: NEXT DOSE DUE: DATE: TIME: Miralax (Polyethylene Glycol 3350) 17 Gm Powd.pack 1 Packet PO DAILY PRN LAST DOSE GIVEN: DATE: TIME: NEXT DOSE DUE: DATE: TIME: Gaviscon Es Tablet Chew (Magnesium Carbonate/Al Hydrox) 1 Each Tab.chew 1 Each PO QID PRN LAST DOSE GIVEN: DATE: TIME: NEXT DOSE DUE: DATE: TIME: Multi Vitamin Daily (Multivitamin) 1 Each Tablet 1 Tab PO TID LAST DOSE GIVEN: DATE: TIME: NEXT DOSE DUE: DATE: TIME: Colace (Docusate Sodium) 100 Mg Capsule 100 Mg PO BID PRN LAST DOSE GIVEN: DATE: TIME: NEXT DOSE DUE: DATE: TIME: Vitamin D3 (Cholecalciferol (Vitamin D3)) 2,000 Unit Tablet 2,000 Unit PO BID LAST DOSE GIVEN: DATE: TIME: NEXT DOSE DUE: DATE: TIME: Niacin 500 Mg Capsule.er 500 Mg PO DAILY LAST DOSE GIVEN: DATE: TIME: NEXT DOSE DUE: DATE: TIME: Aspirin 325 Mg Tablet 162.5 Mg PO DAILY LAST DOSE GIVEN: DATE: TIME: NEXT DOSE DUE: DATE: TIME: ALLERGIES Allergies: Coded Allergies: atorvastatin (Verified Allergy, Intermediate, Hives, 11/14/18) fenofibrate (Verified Allergy, Intermediate, Hives, 11/14/18) PT states he developed a large, red welt on his calf when he took this medication, the symptom disappeared when he d/c use. rosuvastatin calcium (Verified Allergy, Intermediate, Hives, 11/14/18) ezetimibe (Verified Allergy, Unknown, 12/22/18) pravastatin (Verified Allergy, Unknown, 12/22/18) simvastatin (Verified Allergy, Unknown, 12/22/18) ROS Review of Systems 14 point ROS conducted with pertinent positives noted above in hPI PHYSICAL EXAM General: Alert, Oriented X3, Cooperative, No acute distress HEENT: Atraumatic, Mucous membr. moist/pink, Other (right eye lid droopy) Lungs: Clear to auscultation Heart: Regular rate Abdomen: Soft, No tenderness Extremities: No edema, Normal pulses Skin: No breakdown Neuro: Normal speech, Sensation intact Psych/Mental Status: Mental status NL, Mood NL MUSCULOSKELETAL: Osteoarthritic changes both hands VITALS Vital Signs Vital Signs Date Time Temp Pulse Resp B/P (MAP) Pulse Ox O2 Delivery O2 Flow Rate FiO2 05/25/19 07:23 18 05/25/19 06:13 112 158/91 (113) 97 Room Air 05/25/19 03:58 97.5 LABS LABS Laboratory Tests Test 05/24/19 23:09 05/25/19 00:30 05/25/19 03:31 White Blood Count 7.3 x10^3/uL (4.0-11.0) Red Blood Count 5.01 x10^6/uL (4.30-5.70) Hemoglobin 16.5 g/dL (13.0-17.5) Hematocrit 47.2 % (39.0-53.0) Mean Corpuscular Volume 94 fL (79-100) Mean Corpuscular Hemoglobin 33 pg (25-35) Mean Corpuscular Hemoglobin Concent 35 g/dL (31-37) Red Cell Distribution Width 13.0 % (11.5-14.5) Platelet Count 228 x10^3/uL (140-400) Neutrophils (%) (Auto) 68 % (31-73) Lymphocytes (%) (Auto) 21 % (24-48) Monocytes (%) (Auto) 8 % (0-9) Eosinophils (%) (Auto) 3 % (0-3) Basophils (%) (Auto) 1 % (0-3) Neutrophils # (Auto) 4.9 x10^3uL (1.8-7.7) Lymphocytes # (Auto) 1.5 x10^3/uL (1.0-4.8) Monocytes # (Auto) 0.6 x10^3/uL (0.0-1.1) Eosinophils # (Auto) 0.2 x10^3/uL (0.0-0.7) Basophils # (Auto) 0.0 x10^3/uL (0.0-0.2) Erythrocyte Sedimentation Rate 2 (0-15) Prothrombin Time 9.7 SEC (9.4-11.4) Prothromb Time International Ratio 0.9 (0.9-1.1) Activated Partial Thromboplast Time 21 SEC (23-33) D-Dimer (Shilpi) 0.63 mg/L (0.00-0.50) Sodium Level 140 mmol/L (136-145) Potassium Level 4.0 mmol/L (3.5-5.1) Chloride Level 101 mmol/L (98-107) Carbon Dioxide Level 28 mmol/L (21-32) Anion Gap 11 (6-14) Blood Urea Nitrogen 16 mg/dL (8-26) Creatinine 1.3 mg/dL (0.7-1.3) Estimated GFR (Cockcroft-Gault) 54.3 Glucose Level 115 mg/dL (70-99) Calcium Level 10.0 mg/dL (8.5-10.1) Magnesium Level 2.1 mg/dL (1.8-2.4) Total Bilirubin 0.6 mg/dL (0.2-1.0) Direct Bilirubin 0.2 mg/dL (0.0-0.2) Aspartate Amino Transf (AST/SGOT) 23 U/L (15-37) Alanine Aminotransferase (ALT/SGPT) 45 U/L (16-63) Alkaline Phosphatase 66 U/L (46-116) Creatine Kinase 64 U/L (39-308) Troponin I Quantitative < 0.017 ng/mL (0-0.055) ZL-Fom-A-Type Natriuretic Peptide 76 pg/mL (0-124) Total Protein 8.3 g/dL (6.4-8.2) Albumin 4.3 g/dL (3.4-5.0) Lipase 121 U/L (73-393) Urine Collection Type Void Urine Color Yellow Urine Clarity Hazy Urine pH 7.5 Urine Specific Deane 1.015 Urine Protein Neg (NEG-TRACE) Urine Glucose (UA) Neg mg/dL (NEG) Urine Ketones (Stick) Neg mg/dL (NEG) Urine Blood Neg (NEG) Urine Nitrite Neg (NEG) Urine Bilirubin Neg (NEG) Urine Urobilinogen Dipstick 0.2 mg/dL (0.2 mg/dL) Urine Leukocyte Esterase Neg (NEG) Urine RBC 0 /HPF (0-2) Urine WBC Occ /HPF (0-4) Urine Squamous Epithelial Cells Occ /LPF Urine Amorphous Sediment Present /HPF Urine Bacteria 0 /HPF (0-FEW) Urine Opiates Screen Neg (NEG) Urine Methadone Screen Neg (NEG) Urine Barbiturates Neg (NEG) Urine Phencyclidine Screen Neg (NEG) Urine Amphetamine/Methamphetamine Neg (NEG) Urine Benzodiazepines Screen Neg (NEG) Urine Cocaine Screen Neg (NEG) Urine Cannabinoids Screen Neg (NEG) Urine Ethyl Alcohol Neg (NEG) Influenza Type A (Rapid) Negative (NEGATIVE) Influenza Type B (Rapid) Negative (NEGATIVE) ECHOCARDIOGRAM Echocardiogram <Conclusion> The left ventricle is normal size. The left ventricular systolic function is normal and the ejection fraction is within normal range. The Ejection Fraction is 55-60%. There is no significant aortic valvular stenosis. Doppler and Color Flow revealed no significant aortic regurgitation. Doppler and Color-flow revealed mild mitral regurgitation. Doppler and Color Flow revealed mild tricuspid regurgitation. The PA pressure was estimated at 46 mmHg. DATE: 11/05/18 1446 HEART CATH Heart Cath Coronary angiography: a. The left main coronary artery arose from the left sinus of Valsalva, gave rise to the left anterior descending and left circumflex arteries and showed 30% stenosis involving the distal segment. b. The left anterior descending artery showed 80% stenosis involving the midsegment. The diagonal branch showed 80-90% stenosis involving the midsegment. c. The left circumflex artery showed 50% stenosis involving the proximal segment and 90% stenosis involving the midsegment. d. The right coronary artery was a large and dominant vessel arising from the right sinus of Valsalva that showed 40% stenosis in the proximal segment, 70% stenosis in the midsegment and 90% stenosis involving the midsegment of the posterior descending branch. Conclusion Severe three-vessel coronary artery disease Recommendations Cardiothoracic surgery team consultation for possible coronary artery bypass surgery. DATE: 03/14/2017 13:04:47 Conclusion 1. Successful PCI of the proximal to mid RCA with implantation of a Xience 3.0/38 PATY 2. Successful PCI of the LCx with implantation of a Xience 3.0/18 PATY. Recommendations ASA 81mg daily indefinitely Plavix 75mg daily indefinitely Patient intolerant to statin therapy Cardiac rehab referral. DATE: 03/19/2017 11:01:24 ASSESSMENT/PLAN Assessment/Plan 1. Chest pain, atypical; initial trop negative. Echo 11/20 with preserved LV systolic function 2. CAD; s/p PCI/PATY to mid-RCA and left circ 01/19 3. Hypertension; mildly elevated 4. Hyperlipidemia; statin 5. Diplopia, h.o TIA; CT head without acute findings Recommendations Trend troponin Lipids Continue secondary prevention measures Supportive care from a CV standpoint. If concerns for CVA, could consider outpatient event monitor to assess AFIB/flutter. No evidence thus far on tele. CLAIRE MONSON APRN May 25, 2019 08:41
[2019-05-25] MEDS ORDERED: ENOXAPARIN ** NOTE DOSE ** SYRINGE SQ SCH (09:00)
[2019-05-25] MEDS ORDERED: NIACIN 500 MG PO SCH (09:00)
[2019-05-25] MEDS ORDERED: NON FORMULARY ITEM (Pitavastatin Calcium (Livalo) 2 MG) PO SCH (09:00)
[2019-05-25] MEDS ORDERED: ASPIRIN 325 MG TABLET PO SCH (09:00)
[2019-05-25] MEDS ORDERED: NON FORMULARY ITEM (Ranolazine (Ranexa) 1,000 MG) PO SCH (09:00)
[2019-05-25] MEDS ORDERED: NITROGLYCERIN SUBLINGUAL 0.4 MG BOTTLE OF 25. SL PRN (09:00)
[2019-05-25] MEDS ORDERED: IPRATRPIUM/ALBUTEROL 0.5/2.5MG 3 ML NEBU. NEB PRN (09:30)
--- NOTE | 2019-05-25 09:37 | NUR ---
Requesting DC or change Aerosol tx to Prn. Admitted for Chest pain. Doesn't have a Respiratory history requiring meds at home. Spo2 97% on RA. Labs normal. CXR -no consolidation. Pt denies cough or SOA.
[2019-05-25] MEDS ORDERED: ISOSORBIDE MONONITRATE ER 30 MG TAB.ER.24H PO SCH (10:00)
[2019-05-25] MEDS ORDERED: METOPROLOL TART IMMED RELEASE 25 MG TABLET PO SCH (10:00)
[2019-05-25] MEDS ORDERED: CLOPIDOGREL BISULFATE 75 MG TABLET PO SCH (10:00)
[2019-05-25] MEDS ORDERED: PANTOPRAZOLE 40 MG TABLET. PO SCH (10:00)
[2019-05-25 10:22] VITALS: BP 149/77
--- NOTE | 2019-05-25 11:47 | RAD ---
Bilateral Lower Extremity Venous Doppler: Reason for examination: Bilateral lower extremity edema. The lower extremity venous systems bilaterally were evaluated from the common femoral and greater saphenous veins distally to the calf veins with grayscale imaging, color-flow imaging and spectral analysis. There is normal blood flow without deep venous thrombosis. There is normal response of the venous systems to compression and augmentation. Impression: No deep venous thrombosis in the lower extremity venous systems bilaterally. Electronically signed by: Ita Gonzalez MD (05/25/2019 11:44 AM) [id number]
--- NOTE | 2019-05-25 11:52 | RAD ---
BILATERAL DUPLEX CAROTID SONOGRAPHY History: Hypertension, previous MN and TIA. Dyslipidemia. COMPARISON: Carotid Doppler ultrasound November 05, 2018. Technique: Duplex sonography of the cervical portion of both carotid arteries was performed. Real-time grayscale, color flow Doppler, and Doppler spectral waveform analysis is performed. Findings: Right side: Peak systolic flow velocity of the CCA is 90 cm/sec. Peak systolic flow velocity of the ICA is 104 cm/sec. The ICA/CCA ratio is 1.1. Peak end diastolic flow velocity of the ICA is 18 cm/sec. The peak systolic velocity of the ECA is 120 cm/sec. No significant plaque formation is identified. Left side: Peak systolic flow velocity of the CCA is 93 cm/sec. Peak systolic flow velocity of the ICA is 109 cm/sec. The ICA/CCA ratio is 1.2. Peak end diastolic flow velocity of the ICA is 18 cm/sec. Peak systolic flow velocity of the ECA is 96 cm/sec. No significant plaque formation is identified. Vertebral arteries: Bilateral vertebral arteries demonstrate antegrade flow. IMPRESSION: No hemodynamically significant internal carotid artery stenosis is identified. PQRS Compliance Statement - Stenosis calculations for CT, MR and conventional angiography are based upon measurement of the distal ICA diameter in accordance with the NASCET methodology. Stenosis calculations for carotid ultrasound studies are derived from validated velocity criteria which are known to correlate with the NASCET methodology. Electronically signed by: Kamlesh Davis MD (05/25/2019 11:49 AM) [id number]
--- NOTE | 2019-05-25 14:00 | HP ---
ADMIT DATE: 05/25/2019 HISTORY OF PRESENT ILLNESS: The patient is a 74-year-old male patient who presented to the Emergency Room with a complaint of chest discomfort and double vision, starting approximately 8:00 in the evening. He stated he took full dose of aspirin at that time. He stated that he still has some vague discomfort and the double vision with extremes of eye deviation, both up and down and [id number]. Double vision resolves when he closes one eye. The patient has chronic decreased vision in his right eye. Patient was advised he has had previous small myocardial infarction in 03/13/2007 and has history of colon cancer diagnosed in 2007. His colon cancer was treated with polypectomy. The patient has a history of prostate cancer treated with external beam radiation. He follows with Dr. Doan, his golf professional; Dr. Tilley, his neurologist and Dr. Bardales, the weatherstrip machine operator and Dr. Strange, his primary care physician. No recent travel outside of the [place] area. No specific ill contact. No history of trauma. The patient does have a history of hypertension, history of prior TIA, dry eye syndrome, hypothyroidism, hypertension and constipation. He was basically evaluated in the Emergency Room and his EKG showed that he was in sinus rhythm at 95 beats per minute with left axis deviation, but no ST segment elevation. His CT scan of the head without contrast showed that the patient has no acute intracranial process, mild cerebral volume loss and mild chronic small vessel ischemic disease. His chest x-ray showed that the heart and mediastinum showed there is normal atherosclerosis thoracic aorta. The patient was diagnosed with TIA and the ER physician recommended TPA; however, the patient declines any consideration for issues at this time. His minimal [facility] [place] stroke score was 1-2 that was repeated and the patient was admitted basically to consult the cardiology team as well as the neurologist as his first set of cardiac enzymes showed troponin to be less than 0.017, the second one was 0.088. PAST MEDICAL HISTORY: Significant for hypertension, hyperlipidemia, history of myocardial infarction. He underwent percutaneous transluminal coronary angioplasty with stent deployment to his mid right coronary artery and left circumflex distance with a drug-eluting stent. He is known to have also hypothyroidism, prostate cancer and colon cancer. PAST SURGICAL HISTORY: Significant for PCI with stent deployment. Prostate biopsy and colonoscopy and polypectomy. ALLERGIES: He is allergic to ATORVASTATIN, ZETIA, FENOFIBRATE, PRAVASTATIN, ROSUVASTATIN, CALCIUM, and SIMVASTATIN. MEDICATIONS: He is currently on following medications: He is on Plavix 75 mg once a day, Ranexa 1000 mg twice a day, Livalo 2 mg p.o. daily, niacin 500 mg daily, omega-3 fatty acid 1 capsule 3 times a day, isosorbide mononitrate 30 mg once a day, nitroglycerin 0.4 mg sublingually every 5 minutes x 3. He is on metoprolol tartrate 25 mg twice a day, aspirin 325 mg once a day, acetaminophen 500 mg p.o. twice a day. He is also on clonazepam 1 mg at bedtime, calcium carbonate and vitamin D3 for Caltrate 1 tablet 3 times a day. He is on dextran hypromellose 2 drops to both eyes at bedtime, magnesium carbonate for Gaviscon 1 tablet 4 times a day, docusate sodium 100 mg twice a day, polyethylene glycol 17 grams daily, Protonix 40 mg once a day and levothyroxine sodium 100 mcg once a day, cholecalciferol, vitamin D3 2000 units p.o. b.i.d. and multivitamin 1 tablet 3 times a day. FAMILY HISTORY: He has one brother at age of 74 because of ischemic heart disease. Father at age of 65 because of myocardial infarction. Mother at the age of 67 because of complication of diabetes. SOCIAL HISTORY: He is single, never , has no children. He quit smoking in 1970. He quit drinking also at the same time. He does not use any drugs. He has held multiple jobs including the [employer] as well as [employer]. He is currently retired. REVIEW OF SYSTEMS: The patient denied any blurring of vision, but denied any cataract, but did complain of diplopia that he has new onset, started last night. Denied however any headache. Denied any dizziness or lightheadedness. Denied any tingling, numbness or weakness of one side or the other. Denied any nausea, vomiting, diarrhea or constipation. Denied any hematemesis, melena or hematochezia. Denied any dysuria, frequency or hematuria. Did complain of chest discomfort, but denied any shortness of breath, orthopnea or paroxysmal nocturnal dyspnea. Denied any cough, phlegm or hemoptysis. PHYSICAL EXAMINATION: GENERAL: When I examined him, he looked well and was clearly in no apparent respiratory distress. No pallor, jaundice, cyanosis or thyromegaly. No jugular venous distention. No lower limb edema. VITAL SIGNS: His heart rate was 96, blood pressure 149/77, temperature was 97.9, respiratory rate was 18 and oxygen saturation was 98% on room air. HEAD, EYES, EARS, NOSE AND THROAT: Showed normocephalic, atraumatic. NECK: Supple. HEART: Showed normal first and second heart sounds. No gallop or murmur. CHEST: Clear to auscultation. No crepitation or rhonchi. ABDOMEN: Distended, soft, nontender. NEUROLOGIC: He is awake, alert. He has continued to complain of diplopia. Both eyes are open. If he closes his left eye, the diplopia disappears. His pupils are equal. 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 He had also some mild ptosis, which makes third nerve likely. All other cranial nerves are intact. EXTREMITIES: He moves extremities without difficulty, ambulates without assistance or assistive devices. LABORATORY DATA: This morning showed a serum sodium 140, potassium 4, chloride 101, bicarbonate 28, anion gap of 11, BUN 16, creatinine 1.3, estimated GFR was 54 mL per minute. His glucose was 115, calcium was 10, magnesium was 2.1. Total bilirubin, AST, ALT, alkaline phosphatase were normal. Total protein was 8.3, albumin was 4.3 and serum lipase was 121. His white cell count was 7300, hemoglobin 16.5, hematocrit 47.2, MCV 94 and platelet count of 228,000. His prothrombin time was 9.7, INR of 0.6, aPTT was 21 and D-dimer was slightly elevated at 0.63. Urinalysis essentially unremarkable and his toxic screen was essentially negative and his influenza A and B were negative. CT scan of the head showed that the patient has mild generalized cerebral and cerebellar volume loss, mild nonspecific periventricular hypoattenuation most commonly seen with chronic small vessel ischemic disease, calcified atherosclerosis, bilateral cavernous and clinoid, internal carotid arteries and intracranial vertebral arteries. No intra or extraaxial fluid collection or mass effect and no acute hemorrhage. The ventricles are normal in size, shape and morphology. The guaman white matter junction is normal. The subarachnoid cisterns are patent. The visualized paranasal sinuses are normal. The visualized portion of the orbits and globes are normal. The mastoid air cells are clear. His chest x-ray showed that the patient has normal lung volumes, stable right basilar linear opacities, likely subsegmental atelectasis or linear fibrosis, no new consolidation. The tracheobronchial tree and hilar structures are normal. There is no pleural effusion or pneumothorax. The cardiomediastinal silhouette is normal. Atherosclerosis of the thoracic aorta with the impression that the patient has no consolidation. He has bilateral lower extremity deep vein thrombosis given high D-dimer, which showed no deep vein thrombosis in the lower extremity venous system bilaterally and carotid Doppler showed that no hemodynamically significant internal carotid artery stenosis identified. ASSESSMENT AND PLAN: The patient was admitted and was continued on all his medication. We will consult Dr. Bardales and Dr. Tilley and decide further management accordingly. JENN HOOPER MD DR: BRENTON/jamari JOB#: [id number] / [id number]
[2019-05-25 15:10] VITALS: BP 118/67
[2019-05-25 15:54] LABS: THYROID STIM HORMONE (TSH) 0.531 uIU/mL (0.358-3.740)
--- NOTE | 2019-05-25 19:13 | NUR ---
Pt transferred to [facility] via EMS. VSS. NAD. Denies pain. PIV remains in place. All belongings accounted for. No falls or injury reported.
[2019-05-25] MEDS ORDERED: RANOLAZINE 500 MG TAB.ER.12H PO SCH (21:00)
[2019-05-25] MEDS ORDERED: NIACIN ER 500 MG TABLET.ER PO SCH (21:00)
[2019-05-26] MEDS ORDERED: LEVOTHYROXINE 100 MCG TABLET PO SCH (07:30)
== END 2019-05-25 19:14 | disposition short-term general hospital (02) | DRG 313 ==
LOC: ER 22:27 → 1 SOUTH 05-25 00:30
PROVIDERS: ADMIT Internal Medicine; ATTEND Internal Medicine
DX: R07.89 Other chest pain (principal); I25.10 Atherosclerotic heart disease of native coronary artery without angina pectoris; I10 Essential (primary) hypertension; E78.00 Pure hypercholesterolemia, unspecified; E78.5 Hyperlipidemia, unspecified; E03.9 Hypothyroidism, unspecified; K21.9 Gastro-esophageal reflux disease without esophagitis; M19.90 Unspecified osteoarthritis, unspecified site; I25.2 Old myocardial infarction; Z86.73 Personal history of transient ischemic attack (TIA), and cerebral infarction without residual deficits; Z95.5 Presence of coronary angioplasty implant and graft; Z87.891 Personal history of nicotine dependence; Z85.46 Personal history of malignant neoplasm of prostate; Z85.038 Personal history of other malignant neoplasm of large intestine; Z83.3 Family history of diabetes mellitus; Z82.49 Family history of ischemic heart disease and other diseases of the circulatory system; Z88.8 Allergy status to other drugs, medicaments and biological substances
CPT/HCPCS: 36415; 70450; 71046; 80048; 80061; 80076; 80307; 81001; 82550; 83690; 83735; 83880; 84443; 84484; 85025; 85379; 85610; 85651; 85730; 87804; 93005; 93880; 93970; 94640; J7120

== ENCOUNTER 2019-09-22 19:31 | Inpatient (IN) | payer MEDICARE, BC ==
[~2019-09-22] VITALS: Ht 160 cm; Wt 73.3 kg
[~2019-09-22 19:31] MED LIST changes: +CLON1TAB PO; +CLOP75TA57 PO; +DEXT15DR17 OP; +ISOS30TA4 PO; +LEVO100T5 PO; +METO25TA4 PO; +NITR0.4T22 SL; +OMEG1CAP38 PO; +PANT40TA3 PO; +PITA2TAB2 PO; +RANO10002 PO
--- NOTE | 2019-09-22 19:44 | PHYS DOC ---
Past History Past Medical History: Angina, CAD, Cancer, Constipation, GERD, High Cholesterol, Heart Disease, Hypertension, Hypothyroid, NH, TIA Past Surgical History: Other Additional Past Surgical Histo: HERNIA SURGERY , 2 cardiac stents Smoking: Non-smoker Alcohol Use: None Drug Use: None General Adult EDM: Chief Complaint: CHEST PAIN HPI: HPI: 74-year-old male presents with chest pain. The patient woke up from a nap 4 hours ago and had chest pain. It is a 5 out of 10. Took 2 nitros and the pain is now resolved. EMS gave him 324 of aspirin in route. The patient has had an NH in the past. He had 2 stents placed a couple years ago. He denies shortness of breath or diaphoresis. Denies fever or chills. Review of Systems: Review of Systems: Constitutional: Denies fever or chills Eyes: Denies change in visual acuity HENT: Denies nasal congestion or sore throat Respiratory: Denies cough or shortness of breath Cardiovascular: Denies chest pain or edema GI: Denies abdominal pain, nausea, vomiting, bloody stools or diarrhea : Denies dysuria Musculoskeletal: Denies back pain or joint pain Integument: Denies rash Neurologic: Denies headache, focal weakness or sensory changes Endocrine: Denies polyuria or polydipsia Lymphatic: Denies swollen glands Psychiatric: Denies depression or anxiety Heart Score: HEART Score for Chest Pain: HEART Score for Chest Pain Response (Comments) Value History Moderately Suspicious 1 ECG Nonspecific Repolarizatio 1 Age > 65 2 Risk Factors >3 Risk Factors or Hx CAD 2 Troponin < Normal Limit 0 Total 6 Risk Factors: Risk Factors: DM, Current or recent (<one month) smoker, HTN, HLP, family history of CAD, obesity. Risk Scores: Score 0 - 3: 2.5% MACE over next 6 weeks - Discharge Home Score 4 - 6: 20.3% MACE over next 6 weeks - Admit for Clinical Observation Score 7 - 10: 72.7% MACE over next 6 weeks - Early Invasive Strategies Allergies: Allergies: Allergies Coded Allergies Type Severity Reaction Last Updated Verified atorvastatin Allergy Intermediate Hives 11/14/18 Yes fenofibrate Allergy Intermediate Hives 11/14/18 Yes rosuvastatin calcium Allergy Intermediate Hives 11/14/18 Yes ezetimibe Allergy Unknown 12/22/18 Yes pravastatin Allergy Unknown 12/22/18 Yes simvastatin Allergy Unknown 12/22/18 Yes Physical Exam: PE: Constitutional: Well developed, well nourished, no acute distress, non-toxic appearance. [] HENT: Normocephalic, atraumatic, bilateral external ears normal, oropharynx moist, no oral exudates, nose normal. [] Eyes: PERRLA, EOMI, conjunctiva normal, no discharge. [] Neck: Normal range of motion, no tenderness, supple, no stridor. [] Cardiovascular:Heart rate regular rhythm, no murmur [] Lungs & Thorax: Bilateral breath sounds clear to auscultation [] Abdomen: Bowel sounds normal, soft, no tenderness, no masses, no pulsatile masses. [] Skin: Warm, dry, no erythema, no rash. [] Back: No tenderness, no CVA tenderness. [] Extremities: No tenderness, no cyanosis, no clubbing, ROM intact, no edema. [] Neurologic: Alert and oriented X 3, normal motor function, normal sensory function, no focal deficits noted. [] Psychologic: Affect normal, judgement normal, mood normal. [] Current Patient Data: Vital Signs: Vital Signs Date Time Temp Pulse Resp B/P (MAP) Pulse Ox O2 Delivery O2 Flow Rate FiO2 09/22/19 19:36 98.0 104 18 148/73 (98) 97 Room Air EKG: EKG: Sinus tachycardia, rate 102, leftward axis, no ST elevations or depressions. [] Radiology/Procedures: Radiology/Procedures: [] Impressions: Examination: PORTABLE CHEST 1V History: Reason: CP / Spl. Instructions: / History: Comparison/Correlation: None Findings: Portable frontal view chest was obtained. Heart size and pulmonary vessels are normal. No infiltrate or pneumothorax. Subtle costophrenic angle blunting is noted on the right. Possibility of small pleural effusion is not excluded. Impression: No infiltrate. Possible small right pleural effusion. Electronically signed by: Paul Painter MD (09/22/2019 8:26 PM) [facility] DICTATED AND SIGNED BY: PAUL PAINTER MD DATE: 09/22/192025 CC: DINESH VANCE DO; ISH MARCUS MD ~ Course & Med Decision Making: Course & Med Decision Making Pertinent Labs and Imaging studies reviewed. (See chart for details) The patient's EKG is negative for acute findings. His labs are unremarkable. His troponin is negative. His urinalysis is negative. His chest x-ray is negative for acute findings. He is chest pain resumed in the ER we have given him morphine and nitro sublingual. His heart score is a 6. We will admit him for further trending and management. I spoke with Dr. Arevalo and he has accepted patient for admission. [] Dragon Disclaimer: Dragon Disclaimer: This electronic medical record was generated, in whole or in part, using a voice recognition dictation system. Departure Departure: Impression: Primary Impression: Chest pain Qualified Codes: R07.2 - Precordial pain Disposition: ADMITTED INPATIENT Admitting Physician: Michael Arevalo Condition: STABLE Referrals: ISH MARCUS MD (PCP) Justification of Admission: Justification of Admission: Justification of Admission Dx: Yes Angina: Cresendo Worsening of Sym DINESH VANCE DO Sep 22, 2019 19:44
[2019-09-22 20:23] LABS: BASO % 0 % (0-3); EOS # 0.2 x10^3/uL (0.0-0.7); EOS % 3 % (0-3); HEMOGLOBIN 15.7 g/dL (13.0-17.5); LYMPH # 1.1 x10^3/uL (1.0-4.8); LYMPH % 20 % (24-48); MEAN CORPUSCULAR HEMOGLOBIN 33 pg (25-35); MEAN CORPUSCULAR HGB CONC 35 g/dL (31-37); MEAN CORPUSCULAR VOLUME 95 fL (79-100); MONO # 0.5 x10^3/uL (0.0-1.1); MONO % 8 % (0-9); NEUT # 3.9 x10^3uL (1.8-7.7); NEUT % 69 % (31-73); PLATELET COUNT 215 x10^3/uL (140-400); RED BLOOD COUNT 4.75 x10^6/uL (4.30-5.70); RED CELL DISTRIBUTION WIDTH 12.9 % (11.5-14.5); WHITE BLOOD COUNT 5.7 x10^3/uL (4.0-11.0)
--- NOTE | 2019-09-22 20:29 | RAD ---
Examination: PORTABLE CHEST 1V History: Reason: CP / Spl. Instructions: / History: Comparison/Correlation: None Findings: Portable frontal view chest was obtained. Heart size and pulmonary vessels are normal. No infiltrate or pneumothorax. Subtle costophrenic angle blunting is noted on the right. Possibility of small pleural effusion is not excluded. Impression: No infiltrate. Possible small right pleural effusion. Electronically signed by: Paul Naidu MD (09/22/2019 8:26 PM) [facility]
[2019-09-22 20:31] LABS: CALCIUM 9.6 mg/dL (8.5-10.1); CREATININE 1.5 mg/dL (0.7-1.3); POTASSIUM 3.7 mmol/L (3.5-5.1)
[2019-09-22 20:35] LABS: BILIRUBIN,URINE NEG (NEG); CLARITY,URINE CLEAR; COLOR,URINE YELLOW; GLUCOSE,URINE NEG (NEG); NITRITE,URINE NEG (NEG); UROBILINOGEN,URINE 0.2 mg/dL (0.2 mg/dL)
[2019-09-22 20:36] LABS: BACTERIA,URINE 0 /HPF (0-FEW); RBC,URINE 0 /HPF (0-2); SQUAMOUS EPITHELIAL CELL,UR OCC /LPF; WBC,URINE 0 /HPF (0-4)
[2019-09-22 20:44] LABS: ALBUMIN 4.1 g/dL (3.4-5.0); ALBUMIN/GLOBULIN RATIO 1.1 (1.0-1.7); TOTAL BILIRUBIN 0.5 mg/dL (0.2-1.0); TOTAL PROTEIN 7.7 g/dL (6.4-8.2)
[2019-09-22] MEDS ORDERED: MORPHINE SULFATE 2 MG/ML DISP.SYRIN. IV ONE (20:45)
[2019-09-22] MEDS ORDERED: NITROGLYCERIN SUBLINGUAL 0.4 MG BOTTLE OF 25. SL PRN ×2 (20:45→21:15)
[2019-09-22] MEDS ORDERED: MORPHINE SULFATE 2 MG/ML DISP.SYRIN. IVP PRN (21:15)
[2019-09-22] MEDS ORDERED: ONDANSETRON PF 4 MG/2 ML VIAL. IVP PRN (21:15)
--- NOTE | 2019-09-22 21:41 | EKG ---
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
[2019-09-22 22:50] VITALS: BP 137/76
[2019-09-23] MEDS ORDERED: ASPI325T8 PO (00:16)
[2019-09-23 03:36] VITALS: BP 113/68
[2019-09-23 08:16] VITALS: BP 133/73
--- NOTE | 2019-09-23 08:17 | PDOC2 ---
CARDIAC CONSULT DATE OF CONSULT Date Of Consult DATE: 09/23/19 TIME: 08:11 REASON FOR CONSULT Reason for Consult Chest pain REFERRING PHYSICIAN Referring Physician Dr. Baig SOURCE Source: Chart review, Patient HPI History of Present Illness This is a 74 yo male who presented secondary to chest pain. Patient report having acid reflux type pain in his central yesterday afternoon. Had a couple glasses of water and vomited. Took antacids, but pain did not improved. Pain moved to his left chest. Describes as pressure. Radiated down his left arm. Associated with diaphoresis and mild SOA. No dizziness or palpitations. Took nitro x2 at home, which improved pain. Given h/o CAD and symptoms similar to what he previously experienced with an SC, he came to the ED for further evaluation and treatment. Pain resolved with nitro and morphine in ED and has not returned. Over the last couple of months, has taken nitro with exertional activities due to chest pain. Is on Ranexa and Imdur and has been compliant with these. PAST MEDICAL HISTORY Past Medical History CAD (PCI/PATY to mid-RCA and left circ), HTN, SC, Hyperlipidemia CENTRAL NERVOUS SYSTEM: TIA Heme/Onc: Cancer (prostate, colorectal ) PAST SURGICAL HISTORY Past Surgical History: Other (see about ) FAMILY HISTORY Family History: Hypertension SOCIAL HISTORY Social History Smoke: No ALCOHOL: none Drugs: None Lives: Alone CURRENT MEDICATIONS Current Medications Current Medications Nitroglycerin (Nitrostat) 0.4 mg PRN Q5MIN PRN SL CHEST PAIN Last administered on 09/22/19at 20:48; Start 09/22/19 at 20:45 Morphine Sulfate (Morphine 2mg Syringe) 2 mg 1X ONCE IV Last administered on 09/22/19at 20:50; Start 09/22/19 at 20:45; Stop 09/22/19 at 20:46; Status DC Ondansetron HCl (Zofran) 4 mg PRN Q4HRS PRN IVP NAUSEA/VOMITING; Start 09/22/19 at 21:15; Stop 09/23/19 at 21:14 Morphine Sulfate (Morphine 2mg Syringe) 2 mg PRN Q2HR PRN IVP PAIN; Start 09/22/19 at 21:15; Stop 09/23/19 at 21:14 Nitroglycerin (Nitrostat) 0.4 mg PRN Q5MIN PRN SL CHEST PAIN; Start 09/22/19 at 21:15; Stop 09/23/19 at 21:14 Active Scripts Active Reported Aspirin 325 Mg Tablet 325 Mg PO DAILY Ranexa (Ranolazine) 1,000 Mg Tab.er.12h 1,000 Mg PO BID LAST DOSE GIVEN: DATE: TIME: NEXT DOSE DUE: DATE: TIME: Protonix (Pantoprazole Sodium) 40 Mg Tablet.dr 40 Mg PO DAILY LAST DOSE GIVEN: DATE: TIME: NEXT DOSE DUE: DATE: TIME: [place] 3 Fish Oil Softgel ([place]way-3 Fatty Acids/Fish Oil) 1 Each Capsule.dr 1 Cap PO TID LAST DOSE GIVEN: DATE: TIME: NEXT DOSE DUE: DATE: TIME: NITROGLYCERIN SubLingual (Nitroglycerin) 0.4 Mg Tab.subl 0.4 Mg SL PRN Q5MIN PRN LAST DOSE GIVEN: DATE: TIME: NEXT DOSE DUE: DATE: TIME: Metoprolol Tartrate 25 Mg Tablet 25 Mg PO BID LAST DOSE GIVEN: DATE: TIME: NEXT DOSE DUE: DATE: TIME: Livalo (Pitavastatin Calcium) 2 Mg Tablet 2 Mg PO DAILY LAST DOSE GIVEN: DATE: TIME: NEXT DOSE DUE: DATE: TIME: Isosorbide Mononitrate Er (Isosorbide Mononitrate) 30 Mg Tab.er.24h 30 Mg PO DAILY LAST DOSE GIVEN: DATE: TIME: NEXT DOSE DUE: DATE: TIME: Genteal Tears 0.1%-0.2%-0.3% (Dextran/Hypromellose/Glycerin) 15 Ml Drops 2 Drop OP HS LAST DOSE GIVEN: DATE: TIME: NEXT DOSE DUE: DATE: TIME: Plavix (Clopidogrel Bisulfate) 75 Mg Tablet 75 Mg PO DAILY LAST DOSE GIVEN: DATE: TIME: NEXT DOSE DUE: DATE: TIME: Klonopin (Clonazepam) 1 Mg Tablet 1 Mg PO HS LAST DOSE GIVEN: DATE: TIME: NEXT DOSE DUE: DATE: TIME: Levothyroxine Sodium 100 Mcg Tablet 100 Mcg PO DAILYAC LAST DOSE GIVEN: DATE: TIME: NEXT DOSE DUE: DATE: TIME: Caltrate 600 + D Soft Chew Tab (Calcium Carbonate/Vitamin D3) 1 Each Tab.chew 1 Tab PO TID LAST DOSE GIVEN: DATE: TIME: NEXT DOSE DUE: DATE: TIME: Acetaminophen 500 Mg Tablet 500 Mg PO BID PRN LAST DOSE GIVEN: DATE: TIME: NEXT DOSE DUE: DATE: TIME: Miralax (Polyethylene Glycol 3350) 17 Gm Powd.pack 1 Packet PO DAILY PRN LAST DOSE GIVEN: DATE: TIME: NEXT DOSE DUE: DATE: TIME: Gaviscon Es Tablet Chew (Magnesium Carbonate/Al Hydrox) 1 Each Tab.chew 1 Each PO QID PRN LAST DOSE GIVEN: DATE: TIME: NEXT DOSE DUE: DATE: TIME: Multi Vitamin Daily (Multivitamin) 1 Each Tablet 1 Tab PO TID LAST DOSE GIVEN: DATE: TIME: NEXT DOSE DUE: DATE: TIME: Colace (Docusate Sodium) 100 Mg Capsule 100 Mg PO BID PRN LAST DOSE GIVEN: DATE: TIME: NEXT DOSE DUE: DATE: TIME: Vitamin D3 (Cholecalciferol (Vitamin D3)) 2,000 Unit Tablet 2,000 Unit PO BID LAST DOSE GIVEN: DATE: TIME: NEXT DOSE DUE: DATE: TIME: Niacin 500 Mg Capsule.er 500 Mg PO DAILY LAST DOSE GIVEN: DATE: TIME: NEXT DOSE DUE: DATE: TIME: ALLERGIES Allergies: Coded Allergies: atorvastatin (Verified Allergy, Intermediate, Hives, 11/14/18) fenofibrate (Verified Allergy, Intermediate, Hives, 11/14/18) PT states he developed a large, red welt on his calf when he took this medication, the symptom disappeared when he d/c use. rosuvastatin calcium (Verified Allergy, Intermediate, Hives, 11/14/18) ezetimibe (Verified Allergy, Unknown, 12/22/18) pravastatin (Verified Allergy, Unknown, 12/22/18) simvastatin (Verified Allergy, Unknown, 12/22/18) ROS Review of Systems 14 point ROS conducted with pertinent positives noted above in HPI PHYSICAL EXAM Physical Exam General: Alert, Oriented X3, Cooperative, No acute distress HEENT: Atraumatic, Mucous membr. moist/pink, Other (right eye lid droopy) Lungs: Clear to auscultation Heart: Regular rate Abdomen: Soft, No tenderness Extremities: No edema, Normal pulses Skin: No breakdown Neuro: Normal speech, Sensation intact Psych/Mental Status: Mental status NL, Mood NL MUSCULOSKELETAL: Osteoarthritic changes both hands VITALS Vital Signs Vital Signs Date Time Temp Pulse Resp B/P (MAP) Pulse Ox O2 Delivery O2 Flow Rate FiO2 09/23/19 03:36 97.7 82 15 113/68 (83) 97 Room Air LABS LABS Laboratory Tests Test 09/22/19 20:00 09/22/19 20:05 09/23/19 00:51 09/23/19 03:22 Urine Collection Type Unknown Urine Color Yellow Urine Clarity Clear Urine pH 7.5 Urine Specific [place] 1.020 Urine Protein Neg (NEG-TRACE) Urine Glucose (UA) Neg mg/dL (NEG) Urine Ketones (Stick) Neg mg/dL (NEG) Urine Blood Neg (NEG) Urine Nitrite Neg (NEG) Urine Bilirubin Neg (NEG) Urine Urobilinogen Dipstick 0.2 mg/dL (0.2 mg/dL) Urine Leukocyte Esterase Neg (NEG) Urine RBC 0 /HPF (0-2) Urine WBC 0 /HPF (0-4) Urine Squamous Epithelial Cells Occ /LPF Urine Bacteria 0 /HPF (0-FEW) Sodium Level 139 mmol/L (136-145) Potassium Level 3.7 mmol/L (3.5-5.1) Chloride Level 101 mmol/L (98-107) Carbon Dioxide Level 31 mmol/L (21-32) Anion Gap 7 (6-14) Blood Urea Nitrogen 19 mg/dL (8-26) Creatinine 1.5 mg/dL (0.7-1.3) Estimated GFR (Cockcroft-Gault) 46.0 BUN/Creatinine Ratio 13 (6-20) Glucose Level 164 mg/dL (70-99) Calcium Level 9.6 mg/dL (8.5-10.1) Total Bilirubin 0.5 mg/dL (0.2-1.0) Aspartate Amino Transf (AST/SGOT) 19 U/L (15-37) Alanine Aminotransferase (ALT/SGPT) 42 U/L (16-63) Alkaline Phosphatase 63 U/L (46-116) Troponin I Quantitative < 0.017 ng/mL (0-0.055) 0.157 ng/mL (0-0.055) 0.227 ng/mL (0-0.055) FY-Feb-D-Type Natriuretic Peptide 50 pg/mL (0-124) Total Protein 7.7 g/dL (6.4-8.2) Albumin 4.1 g/dL (3.4-5.0) Albumin/Globulin Ratio 1.1 (1.0-1.7) White Blood Count 5.7 x10^3/uL (4.0-11.0) Red Blood Count 4.75 x10^6/uL (4.30-5.70) Hemoglobin 15.7 g/dL (13.0-17.5) Hematocrit 45.0 % (39.0-53.0) Mean Corpuscular Volume 95 fL (79-100) Mean Corpuscular Hemoglobin 33 pg (25-35) Mean Corpuscular Hemoglobin Concent 35 g/dL (31-37) Red Cell Distribution Width 12.9 % (11.5-14.5) Platelet Count 215 x10^3/uL (140-400) Neutrophils (%) (Auto) 69 % (31-73) Lymphocytes (%) (Auto) 20 % (24-48) Monocytes (%) (Auto) 8 % (0-9) Eosinophils (%) (Auto) 3 % (0-3) Basophils (%) (Auto) 0 % (0-3) Neutrophils # (Auto) 3.9 x10^3uL (1.8-7.7) Lymphocytes # (Auto) 1.1 x10^3/uL (1.0-4.8) Monocytes # (Auto) 0.5 x10^3/uL (0.0-1.1) Eosinophils # (Auto) 0.2 x10^3/uL (0.0-0.7) Basophils # (Auto) 0.0 x10^3/uL (0.0-0.2) ECHOCARDIOGRAM Echocardiogram <Conclusion> The left ventricle is normal size. The left ventricular systolic function is normal and the ejection fraction is within normal range. The Ejection Fraction is 55-60%. There is no significant aortic valvular stenosis. Doppler and Color Flow revealed no significant aortic regurgitation. Doppler and Color-flow revealed mild mitral regurgitation. Doppler and Color Flow revealed mild tricuspid regurgitation. The PA pressure was estimated at 46 mmHg. DATE: 11/05/18 1446 HEART CATH Heart Cath Coronary angiography: a. The left main coronary artery arose from the left sinus of Valsalva, gave rise to the left anterior descending and left circumflex arteries and showed 30% stenosis involving the distal segment. b. The left anterior descending artery showed 80% stenosis involving the midsegment. The diagonal branch showed 80-90% stenosis involving the midsegment. c. The left circumflex artery showed 50% stenosis involving the proximal segment and 90% stenosis involving the midsegment. d. The right coronary artery was a large and dominant vessel arising from the right sinus of Valsalva that showed 40% stenosis in the proximal segment, 70% stenosis in the midsegment and 90% stenosis involving the midsegment of the posterior descending branch. Conclusion Severe three-vessel coronary artery disease Recommendations Cardiothoracic surgery team consultation for possible coronary artery bypass surgery. DATE: 03/14/2017 13:04:47 Conclusion 1. Successful PCI of the proximal to mid RCA with implantation of a Xience 3.0/38 PATY 2. Successful PCI of the LCx with implantation of a Xience 3.0/18 PATY. Recommendations ASA 81mg daily indefinitely Plavix 75mg daily indefinitely Patient intolerant to statin therapy Cardiac rehab referral. DATE: 03/19/2017 11:01:24 ASSESSMENT/PLAN Assessment/Plan 1. Chest pain with typical features. Trop mildly elevated at 0.2. Echo 11/20 with preserved LV systolic function 2. CAD; s/p PCI/PATY to mid-RCA and LCx 01/19 3. Hypertension; controlled overall 4. Hyperlipidemia; statin 5. H/o TIA Recommendations Resume secondary prevention measures Given significant history, symptomatology, and frequent use of nitro with exertional activites, recommend cardiac catheterization with possible PCI. R/b/a discussed with patient and he is agreeable. Will transfer to [facility] today and proceed with [facility] tomorrow CLAIRE MONSON APRN Sep 23, 2019 08:17
[2019-09-23] MEDS ORDERED: NITROGLYCERIN SUBLINGUAL 0.4 MG BOTTLE OF 25. SL PRN (08:45)
[2019-09-23] MEDS ORDERED: NON FORMULARY ITEM (Pitavastatin Calcium (Livalo) 2 MG) PO SCH (09:00)
[2019-09-23] MEDS ORDERED: CLOPIDOGREL BISULFATE 75 MG TABLET PO SCH (09:00)
[2019-09-23] MEDS ORDERED: PANTOPRAZOLE 40 MG TABLET. PO SCH (09:00)
[2019-09-23] MEDS ORDERED: METOPROLOL TART IMMED RELEASE 25 MG TABLET PO SCH (09:00)
[2019-09-23] MEDS ORDERED: LEVOTHYROXINE 100 MCG TABLET PO SCH (09:00)
[2019-09-23] MEDS ORDERED: ASPIRIN 325 MG TABLET PO SCH (09:00)
[2019-09-23] MEDS ORDERED: ISOSORBIDE MONONITRATE ER 30 MG TAB.ER.24H PO SCH (09:00)
[2019-09-23] MEDS ORDERED: RANOLAZINE 500 MG TAB.ER.12H PO SCH (09:00)
--- NOTE | 2019-09-23 09:28 | DS ---
DATE OF DISCHARGE: 09/23/2019 ATTENDING PHYSICIAN: Dr. Wilder. FINAL DISCHARGE DIAGNOSES: 1. Non-ST elevation myocardial infarction. 2. Known coronary artery disease. 3. Angina pectoris. 4. Hypertension. 5. Hyperlipidemia. 6. Gastroesophageal reflux disease. HISTORY AND PHYSICAL: This is a pleasant 74-year-old gentleman admitted to the ED with new onset of chest pain, rated 5/10, pressure and some nausea. He had elevation of cardiac enzymes. He was evaluated and will be seen by Cardiology upon transfer. PHYSICAL EXAMINATION: Please see the dictated note. PERTINENT LABORATORY AND X-RAY STUDIES: The first cardiac enzymes showed a troponin of 0.017, second one raised to 0.157 and a third one was 0.227. Creatinine is 1.5 mg/dL, nonfasting blood sugar 164. Hemoglobin is normal at 15.7 gram. COURSE IN THE HOSPITAL: The patient was admitted and monitored. He had no arrhythmias. He was pain free. Home meds were continued. Cardiology service saw him in consultation. His last catheterization was in 03/2017. Because of the rise in enzymes, he is scheduled then to be transferred to [facility] for cardiac catheterization probably first thing in the morning. Therefore, the patient was discharged from our hospital to go by ambulance to [facility]. His home meds will be continued. Again, he will have cardiac evaluation and cardiac catheterization. JIAN WILDER MD DR: PADDY/jamari JOB#: [id number] / [id number] ISH Gibbs MD
[2019-09-23] MEDS: OMEGA-3 FATTY ACIDS/FISH OIL 1,000 MG CAPSULE. PO SCH ×2 (09:42→14:00)
[2019-09-23] MEDS: NIACIN ER 500 MG TABLET.ER PO SCH (09:42)
--- NOTE | 2019-09-23 09:56 | HP ---
ADMIT DATE: 09/22/2019 ATTENDING PHYSICIAN: Dr. Wilder. CHIEF COMPLAINT: Chest pain. HISTORY OF PRESENT ILLNESS: The patient is a 74-year-old gentleman admitted through the ED with chest pain, waking up last night. He stated it is pressure, 5/10. He took 2 nitroglycerin tablets. The pain has now resolved. EMS gave him a dose of aspirin en route. He has had a previous NC with 3-vessel disease. Most recent cardiac catheterization was in 03/2017, 2 drug-eluting stents were placed at that time at [facility]. He denies any shortness of breath or diaphoresis. Cardiac enzymes show a slight trending upwards of cardiac enzymes. He was admitted here with a non-STEMI. He was hemodynamically stable. Chest x-ray showed no evidence of heart failure. PAST MEDICAL HISTORY: Significant for coronary artery disease, angina pectoris, gastroesophageal reflux disease, hyperlipidemia, heart disease, hypertension, hypothyroidism, previous NC and TIA. ALLERGIES: HE HAS ALLERGIES TO LIPITOR, ZETIA, FENOFIBRATE, PRAVASTATIN, CRESTOR, CALCIUM, AND ZOCOR. Exact etiology and reaction is unclear. CURRENT MEDICINES: Reviewed, include Tylenol, aspirin, calcium carbonate, vitamin D3, Klonopin at bedtime, Plavix 75 mg daily, docusate, Imdur, Synthroid, magnesium, metoprolol, multivitamin, niacin, nitroglycerin, omega-3 fish acid, pantoprazole, MiraLax and Ranexa 1000 mg b.i.d. SOCIAL HISTORY: He is a nonsmoker, nondrinker. He is retired. He worked at the [employer] here in various roles. FAMILY HISTORY: Mom and dad both of sudden cardiac arrest. One brother of coronary artery disease. REVIEW OF SYSTEMS: Significant for the chest pain with exertion. He denied any palpitations. No syncope. He denied any nausea, vomiting, diarrhea. All other systems reviewed and turned to be negative. PHYSICAL EXAMINATION: GENERAL: When I saw him, this is a pleasant, alert, middle-aged gentleman. INITIAL VITAL SIGNS: Showed a blood pressure of 146/80, his pulse is 98 and regular, temperature 98.0 degrees Fahrenheit, oxygen saturation 95% on room air. HEENT: Head is without trauma. The pupils are reactive. Sclerae are nonicteric. Oropharynx is clear. NECK: Supple. Venous pressure is not distended. LUNGS: Otherwise clear. CARDIOVASCULAR: Showed regular heart tones. No gallops, no murmurs. Peripheral pulses are palpable and full. ABDOMEN: Soft, obese, protuberant. No organomegaly. Bowel sounds are hypoactive. EXTREMITIES: Showed no cyanosis or edema. NEUROLOGIC FINDINGS: Focally intact. SKIN: Warm and dry. PERTINENT LABORATORY STUDIES: His cardiac enzymes showed a slight elevation. The first set of enzymes showed a troponin of normal. Second set of enzymes increased to 0.157. The third set was 0.227. Creatinine is 1.5 mg/dL with normal electrolytes. Hemoglobin maintained at 15.7 g/dL with a white count of 5700. The resting 12-lead electrocardiogram was nondiagnostic. ASSESSMENT: 1. A 74-year-old gentleman with acute coronary syndrome. 2. Known coronary artery disease. 3. Angina pectoris. 4. Hypertension. 5. Non-ST elevation myocardial infarction. PLAN: 1. Admit to our unit. 2. Aspirin and Plavix continued. 3. Cardiology consultation in the morning. 4. Serial cardiac enzymes. 5. Continue home meds. JIAN WILDER MD DR: PADDY/jamari JOB#: [id number] / [id number] ISH Gibbs MD
[2019-09-23 12:56] VITALS: BP 131/73
[2019-09-23 15:38] VITALS: BP 96/60
== END 2019-09-23 16:28 | disposition short-term general hospital (02) | DRG 282 ==
LOC: ER 19:31 → ICU 21:00
PROVIDERS: ADMIT Internal Medicine; ATTEND Internal Medicine
DX: I21.4 Non-ST elevation (NSTEMI) myocardial infarction (principal); E03.9 Hypothyroidism, unspecified; E78.00 Pure hypercholesterolemia, unspecified; E78.5 Hyperlipidemia, unspecified; I10 Essential (primary) hypertension; I25.119 Atherosclerotic heart disease of native coronary artery with unspecified angina pectoris; I25.2 Old myocardial infarction; K21.9 Gastro-esophageal reflux disease without esophagitis; Z82.41 Family history of sudden cardiac death; Z82.49 Family history of ischemic heart disease and other diseases of the circulatory system; Z86.73 Personal history of transient ischemic attack (TIA), and cerebral infarction without residual deficits; Z95.5 Presence of coronary angioplasty implant and graft; Z79.899 Other long term (current) drug therapy; Z88.8 Allergy status to other drugs, medicaments and biological substances
CPT/HCPCS: 36415; 71045; 80053; 81001; 83880; 84484; 85025; 93005; 96374; 99285; J2270

== ENCOUNTER 2019-10-07 19:51 | Emergency (ER) | payer MEDICARE, BC ==
[~2019-10-07] VITALS: Ht 160 cm; Wt 75.8 kg
--- NOTE | 2019-10-07 19:58 | PHYS DOC ---
Past History Past Medical History: Angina, CAD, Cancer, Constipation, GERD, High Cholesterol, Heart Disease, Hypertension, Hypothyroid, IL, TIA Past Surgical History: Other Additional Past Surgical Histo: HERNIA SURGERY , 2 cardiac stents Smoking: Non-smoker Alcohol Use: None Drug Use: None General Adult EDM: Chief Complaint: LOWER EXTREMITY EDEMA HPI: HPI: "..I ve gained six pounds over my discharge weight... they said I had to come to the ED if I gained over 5 pounds..."... " I had a heart attack... and I came here.. then was shipped to [place].. and then to [facility].. they did a quad by pass on me..." .." September 27 or .. I got discharge there on 10/04..",,I think..." Patient is a 74 year old MALE from [employer] who presents with above hx of CABG after IL. Pt. has known history of coronary artery disease, angina, CHF, GERD, hyperlipidemia, hypertension, hypothyroidism, previous MIs and TIAs. Patient reports a 6 pound wt. gain, and dyspnea since his discharge from [facility]. Patient reportedly underwent bypass surgery on at [facility]. Surgeon was Dr.A. Allen. Patient denies any chest pain. Patient denies any changes in meds. Has been weighing himself daily. No recent travel outside the [place] area. No history of severe ill contacts. No history of immunosuppression. Review of Systems: Review of Systems: Constitutional: Denies fever or chills . Patient complains of a 6 pound weight gain from discharge [facility] Eyes: Denies change in visual acuity HENT: Denies nasal congestion or sore throat Respiratory: Denies cough or shortness of breath Cardiovascular: Denies chest pain or edema GI: Denies abdominal pain, nausea, vomiting, bloody stools or diarrhea : Denies dysuria Musculoskeletal: Denies back pain or joint pain Integument: Denies rash Neurologic: Denies headache, focal weakness or sensory changes Endocrine: Denies polyuria or polydipsia Lymphatic: Denies swollen glands Psychiatric: Denies depression or anxiety Heart Score: HEART Score for Chest Pain: HEART Score for Chest Pain Response (Comments) Value History Moderately Suspicious 1 ECG Nonspecific Repolarizatio 1 Age > 65 2 Risk Factors 1 or 2 Risk Factors 1 Troponin >1-<3x Normal Limit 1 Total 6 Risk Factors: Risk Factors: DM, Current or recent (<one month) smoker, HTN, HLP, family history of CAD, obesity. Risk Scores: Score 0 - 3: 2.5% MACE over next 6 weeks - Discharge Home Score 4 - 6: 20.3% MACE over next 6 weeks - Admit for Clinical Observation Score 7 - 10: 72.7% MACE over next 6 weeks - Early Invasive Strategies Family History: Family History: Both mother and father of sudden cardiac arrest 1 brother who of coronary artery disease Current Medications: Current Meds: See nursing for home meds Allergies: Allergies: Allergies Coded Allergies Type Severity Reaction Last Updated Verified atorvastatin Allergy Intermediate Hives 11/14/18 Yes fenofibrate Allergy Intermediate Hives 11/14/18 Yes rosuvastatin calcium Allergy Intermediate Hives 11/14/18 Yes ezetimibe Allergy Unknown 12/22/18 Yes pravastatin Allergy Unknown 12/22/18 Yes simvastatin Allergy Unknown 12/22/18 Yes Physical Exam: PE: Constitutional: no acute distress, non-toxic appearance. [] HENT: Normocephalic, atraumatic, bilateral external ears normal, oropharynx moist, no oral exudates, nose normal. [] Eyes: PERRLA, EOMI, conjunctiva normal, no discharge. [] Neck: Normal range of motion, no tenderness, supple, no stridor. [] Mild JVD in sitting position Cardiovascular:Heart rate regular rhythm, no murmur [] PMI to the left Lungs & Thorax: Bilateral breath sounds equal apex on auscultation [] as well-healed CABG surgery scar. Bibasilar crackles Abdomen: Bowel sounds normal, soft, no tenderness, no masses, no pulsatile masses. Mild distention Skin: Warm, dry, no erythema, no rash. [] Back: No tenderness, no CVA tenderness. [] Extremities: No tenderness, no cyanosis, no clubbing, ROM intact, no edema. No cording appreciated. Pain harvest sites Neurologic: Alert and oriented X 3, moves extremities on request. Does have distal sensory. No gross focal deficits noted. [] Decreased hearing Psychologic: Affect anxious, judgement normal, mood normal. [] EKG: EKG: My interpretation of EKG shows a sinus rhythm at 89 bpm. Does have leftward axis. There is some nonspecific ST changes. No findings of acute STEMI with contralateral changes. []19:50 My interpretation of repeat EKG shows a sinus rhythm rate of 92 some interventricular conduction delay. Does have left axis changes. Does have findings of a fascicular block. Overall no acute interval change from prior EKG 2307 hrs. [facility][][address] [address] IMAGING REPORT Signed PATIENT: KOBY ASIF ACCOUNT: [id number] : 1945 LOCATION: ER AGE: 74 SEX: M EXAM STATUS: PRE ER ORD. PHYSICIAN: ALAN DODD MD REASON: DYSPNEA, WT GAIN ,BYPASS SURGERY PROCEDURE: PORTABLE CHEST 1V Single view chest dated 10/07/2019. Comparison made to 09/22/2019. CLINICAL INDICATION: Dyspnea. FINDINGS: Single upright portable exam performed. Study is limited due to low lung volumes. Heart and mediastinal contours are stable. Lungs are clear. No consolidation or pleural effusion. No pneumothorax. IMPRESSION: Limited exam. No apparent acute abnormality. Electronically signed by: Ethan García MD (10/07/2019 8:33 PM) [facility] [place] AND SIGNED BY: ETHAN GARCÍA MD DATE: 10/07/192032 CC: ALAN DODD MD; ISH MARCUS MD ~ Radiology/Procedures: Radiology/Procedures: [address] [place] [id number] IMAGING REPORT Signed PATIENT: KOBY ASIF ACCOUNT: [id number] : 1945 LOCATION: ER AGE: 74 SEX: M EXAM STATUS: PRE ER ORD. PHYSICIAN: ALAN DODD MD REASON: DYSPNEA, WT GAIN ,BYPASS SURGERY PROCEDURE: PORTABLE CHEST 1V Single view chest dated 10/07/2019. Comparison made to 09/22/2019. CLINICAL INDICATION: Dyspnea. FINDINGS: Single upright portable exam performed. Study is limited due to low lung volumes. Heart and mediastinal contours are stable. Lungs are clear. No consolidation or pleural effusion. No pneumothorax. IMPRESSION: Limited exam. No apparent acute abnormality. Electronically signed by: Ethan García MD (10/07/2019 8:33 PM) [facility] [place] AND SIGNED BY: ETHAN GARCÍA MD DATE: 10/07/192032 CC: ALAN DODD MD; ISH MARCUS MD ~ Course & Med Decision Making: Course & Med Decision Making Pertinent Labs and Imaging studies reviewed. (See chart for details) Discussed presentation, testing and treatment plan with Dr. Gardiner computing consultant for Dr. Allen. Advised to give dosage Lasix here and have him call in AM for a earlier follow up apt. Pt. currently demanding to be discharged home. Reviewed plan with patient and patient agreeable with plan. Patient return if any concerns. Patient to monitor his salt intake. Continue meds as previously instructed on discharge from [facility]. \\ Impression: 1. Wt . gain 6 Lb.s from discharge Wt. per Pt. 2. CHF 3. BNP 2,159 4. Anemia Hgb. 10.9 5. Mild elevation of Creat. 1.4 6. + Trop 0.950, Repeat 0.861 [] Dragon Disclaimer: Dragon Disclaimer: This electronic medical record was generated, in whole or in part, using a voice recognition dictation system. Departure Departure: Disposition: 01 HOME/RESIDENCE PRIOR TO ADM Condition: STABLE Referrals: ISH MARCUS MD (PCP) Justification of Admission: Justification of Admission: Justification of Admission Dx: N/A Angina: Cresendo Worsening of Sym Dragon Disclaimer This chart was dictated in whole or in part using Voice Recognition software in a busy, high-work load, and often noisy Emergency Department environment. It may contain unintended and wholly unrecognized errors or omissions. ALAN DODD MD Oct 07, 2019 19:58
--- NOTE | 2019-10-07 20:36 | RAD ---
Single view chest dated 10/07/2019. Comparison made to 09/22/2019. CLINICAL INDICATION: Dyspnea. FINDINGS: Single upright portable exam performed. Study is limited due to low lung volumes. Heart and mediastinal contours are stable. Lungs are clear. No consolidation or pleural effusion. No pneumothorax. IMPRESSION: Limited exam. No apparent acute abnormality. Electronically signed by: Ethan Flores MD (10/07/2019 8:33 PM) [facility]
[2019-10-07 20:45] LABS: BASO % 0 % (0-3); EOS # 0.3 x10^3/uL (0.0-0.7); EOS % 3 % (0-3); HEMATOCRIT 31.8 % (39.0-53.0); HEMOGLOBIN 10.8 g/dL (13.0-17.5); LYMPH # 0.9 x10^3/uL (1.0-4.8); LYMPH % 12 % (24-48); MEAN CORPUSCULAR HEMOGLOBIN 33 pg (25-35); MEAN CORPUSCULAR HGB CONC 34 g/dL (31-37); MEAN CORPUSCULAR VOLUME 96 fL (79-100); MONO # 0.6 x10^3/uL (0.0-1.1); MONO % 8 % (0-9); NEUT # 5.7 x10^3uL (1.8-7.7); NEUT % 76 % (31-73); PLATELET COUNT 329 x10^3/uL (140-400); RED BLOOD COUNT 3.31 x10^6/uL (4.30-5.70); RED CELL DISTRIBUTION WIDTH 13.4 % (11.5-14.5); WHITE BLOOD COUNT 7.4 x10^3/uL (4.0-11.0)
[2019-10-07 21:04] LABS: CALCIUM 9.4 mg/dL (8.5-10.1); CREATININE 1.4 mg/dL (0.7-1.3); GFR 49.8; POTASSIUM 3.7 mmol/L (3.5-5.1)
[2019-10-07] MEDS ORDERED: FAMOTIDINE 20 MG/2 ML VIAL IVP ONE (21:15)
[2019-10-07 21:16] LABS: ALBUMIN 3.1 g/dL (3.4-5.0); DIRECT BILIRUBIN 0.2 mg/dL (0.0-0.2); MAGNESIUM 2.1 mg/dL (1.8-2.4); TOTAL BILIRUBIN 0.6 mg/dL (0.2-1.0); TOTAL PROTEIN 6.9 g/dL (6.4-8.2)
[2019-10-07] MEDS ORDERED: MAGNESIUM HYDROXIDE 2,400 MG/30 ML ORAL.SUSP. PO ONE (21:20)
[2019-10-07 21:23] LABS: BACTERIA,URINE 0 /HPF (0-FEW); BILIRUBIN,URINE NEG (NEG); CLARITY,URINE CLEAR; COLOR,URINE YELLOW; GLUCOSE,URINE NEG (NEG); NITRITE,URINE NEG (NEG); RBC,URINE OCC /HPF (0-2); SQUAMOUS EPITHELIAL CELL,UR OCC /LPF; UROBILINOGEN,URINE 0.2 mg/dL (0.2 mg/dL); WBC,URINE OCC /HPF (0-4)
[2019-10-07 21:29] LABS: BARBITURATES NEG (NEG); BENZODIAZEPINES NEG (NEG); CANNABINOIDS NEG (NEG); COCAINE NEG (NEG); METHADONE NEG (NEG); OPIATES POS (NEG); PHENCYCLIDINE NEG (NEG)
[2019-10-07 21:30] LABS: AMPHETAMINE/METHAMPHETAMINE NEG (NEG)
[2019-10-07] MEDS ORDERED: SUCRALFATE 1 GM TABLET. PO ONE (21:30)
--- NOTE | 2019-10-07 21:39 | EKG ---
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
[2019-10-07] MEDS ORDERED: FUROSEMIDE 40 MG/4 ML VIAL IVP ONE (23:00)
[2019-10-07 23:16] VITALS: BP 141/79
--- NOTE | 2019-10-08 00:20 | EKG ---
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
== END 2019-10-08 01:05 | disposition home or self-care (01) ==
LOC: ER 19:51
DX: I11.0 Hypertensive heart disease with heart failure (principal); I50.9 Heart failure, unspecified; D64.9 Anemia, unspecified; R79.89 Other specified abnormal findings of blood chemistry; R63.5 Abnormal weight gain; I25.10 Atherosclerotic heart disease of native coronary artery without angina pectoris; K21.9 Gastro-esophageal reflux disease without esophagitis; E78.00 Pure hypercholesterolemia, unspecified; I25.2 Old myocardial infarction; Z68.29 Body mass index [BMI] 29.0-29.9, adult; Z86.73 Personal history of transient ischemic attack (TIA), and cerebral infarction without residual deficits; Z88.8 Allergy status to other drugs, medicaments and biological substances
CPT/HCPCS: 36415; 71045; 80048; 80076; 80307; 81001; 82550; 83735; 83880; 84443; 84484; 85025; 85610; 85730; 93005; 96374; 96375; 99285; J1940; J3490

== ENCOUNTER 2019-11-30 18:43 | Emergency (ER) | payer MEDICARE, BC ==
[~2019-11-30] VITALS: Ht 160 cm; Wt 70.9 kg
--- NOTE | 2019-11-30 19:28 | RAD ---
EXAM: CT head without contrast INDICATION: Double vision, stroke alert COMPARISON: CT head 05/24/2019 TECHNIQUE: Axial CT imaging through the head without intravenous contrast. One or more of the following individualized dose reduction techniques were utilized for this examination: 1. Automated exposure control 2. Adjustment of the mA and/or kV according to patient size 3. Use of iterative reconstruction technique. FINDINGS: The ventricles and sulci are mildly enlarged. Anderson-white matter differentiation is maintained. There is no intracranial hemorrhage, acute infarct, or mass lesion. Basal cisterns are clear. There are calcifications in the cavernous carotid arteries and left intradural vertebral artery. The skull and scalp are intact. The visualized portion of the paranasal sinuses and mastoid air cells are clear. Globes and orbits are intact. IMPRESSION: 1. No acute intracranial abnormality. 2. Unchanged mild volume loss. Results discussed by Dr. Peterson with Dr. Mendoza at 7:24 PM on 11/30/2019 FOR INTERNAL CODING PURPOSES Critical result: Findings discussed with HEATHER MENDOZA at 11/30/2019 7:24 PM. RESULT CODE: (C) Electronically signed by: Liliana Peterson MD (11/30/2019 7:25 PM) [id number]
[2019-11-30 19:42] LABS: HEMATOCRIT 39.1 % (39.0-53.0); HEMOGLOBIN 12.8 g/dL (13.0-17.5); RED BLOOD COUNT 4.3 x10^6/uL (4.30-5.70); RED CELL DISTRIBUTION WIDTH 13.8 % (11.5-14.5)
[2019-11-30 19:51] LABS: CALCIUM 9.4 mg/dL (8.5-10.1); CREATININE 1.3 mg/dL (0.7-1.3); GFR 54.3; POTASSIUM 3.8 mmol/L (3.5-5.1)
--- NOTE | 2019-11-30 20:29 | PHYS DOC ---
Past History Past Medical History: Angina, CAD, Cancer, Constipation, GERD, High Cholesterol, Heart Disease, Hypertension, Hypothyroid, MA, TIA Past Surgical History: Coronary Bypass Surgery, Other Additional Past Surgical Histo: HERNIA SURGERY , 2 cardiac stents Smoking: Non-smoker Alcohol Use: None Drug Use: None Adult General Chief Complaint Chief Complaint: VISION PROBLEM HPI HPI Patient is a 74 year old male who presents with complaint of double vision and right eyelid drooping. The patient states that his symptoms started at 1755. States that he has had this problem before when he was admitted to the hospital and underwent quadruple coronary artery bypass surgery in September 2019. He states that he follows with Dr. Ferguson of neurology. He has underwent brain imaging and carotid Doppler imaging which showed no evidence of blockage or stroke. He currently denies unilateral weakness, difficulty with speech or swallowing. Has not taken any medications for his symptoms. Review of Systems Review of Systems Constitutional: Denies fever or chills [] Eyes: Denies change in visual acuity, redness, or eye pain [] HENT: Denies nasal congestion or sore throat [] Respiratory: Denies cough or shortness of breath [] Cardiovascular: Denies chest pain or edema [] GI: Denies abdominal pain, nausea, vomiting, bloody stools or diarrhea [] : Denies dysuria or hematuria [] Musculoskeletal: Denies back pain or joint pain [] Integument: Denies rash or skin lesions [] Neurologic: Double vision, denies headache, difficulty with speech or swallowing, or unilateral weakness [] All other systems were reviewed and found to be within normal limits, except as documented in this note. Allergies Allergies Allergies Coded Allergies Type Severity Reaction Last Updated Verified atorvastatin Allergy Intermediate Hives 11/14/18 Yes fenofibrate Allergy Intermediate Hives 11/14/18 Yes rosuvastatin calcium Allergy Intermediate Hives 11/14/18 Yes ezetimibe Allergy Unknown 12/22/18 Yes pravastatin Allergy Unknown 12/22/18 Yes simvastatin Allergy Unknown 12/22/18 Yes Physical Exam Physical Exam Constitutional: Well developed, well nourished, no acute distress, non-toxic appearance. [] HENT: Normocephalic, atraumatic, bilateral external ears normal, oropharynx moist, no oral exudates, nose normal. [] Eyes: PERRLA, EOMI, conjunctiva normal, no discharge. [] Neck: Normal range of motion, no tenderness, supple, no stridor. [] Cardiovascular:Heart rate regular rhythm, no murmur [] Lungs & Thorax: Bilateral breath sounds clear to auscultation [] Abdomen: Bowel sounds normal, soft, no tenderness, no masses, no pulsatile masses. [] Skin: Warm, dry, no erythema, no rash. [] Back: No tenderness, no CVA tenderness. [] Extremities: No tenderness, no cyanosis, no clubbing, ROM intact, no edema. [] Neurologic: Alert and oriented X 3, normal motor function, normal sensory function, no focal deficits noted. [] Psychologic: Affect normal, judgement normal, mood normal. [] Current Patient Data Vital Signs Vital Signs Date Time Temp Pulse Resp B/P (MAP) Pulse Ox O2 Delivery O2 Flow Rate FiO2 11/30/19 18:45 98.4 116 20 143/94 (110) 99 Room Air Vital Signs Date Time Temp Pulse Resp B/P (MAP) Pulse Ox O2 Delivery O2 Flow Rate FiO2 11/30/19 20:50 108 20 148/100 (116) 97 Room Air 11/30/19 18:45 98.4 Lab Results Laboratory Tests Test 11/30/19 19:14 11/30/19 19:25 Glucose (Fingerstick) 164 mg/dL (70-99) H White Blood Count 7.0 x10^3/uL (4.0-11.0) Red Blood Count 4.30 x10^6/uL (4.30-5.70) Hemoglobin 12.8 g/dL (13.0-17.5) L Hematocrit 39.1 % (39.0-53.0) Mean Corpuscular Volume 91 fL (79-100) Mean Corpuscular Hemoglobin 30 pg (25-35) Mean Corpuscular Hemoglobin Concent 33 g/dL (31-37) Red Cell Distribution Width 13.8 % (11.5-14.5) Platelet Count 264 x10^3/uL (140-400) Prothrombin Time 10.1 SEC (9.4-11.4) Prothrombin Time INR 1.0 (0.9-1.1) Activated Partial Thromboplast Time 25 SEC (23-33) Sodium Level 138 mmol/L (136-145) Potassium Level 3.8 mmol/L (3.5-5.1) Chloride Level 103 mmol/L (98-107) Carbon Dioxide Level 24 mmol/L (21-32) Anion Gap 11 (6-14) Blood Urea Nitrogen 18 mg/dL (8-26) Creatinine 1.3 mg/dL (0.7-1.3) Estimated GFR (Cockcroft-Gault) 54.3 Glucose Level 153 mg/dL (70-99) H Calcium Level 9.4 mg/dL (8.5-10.1) EKG EKG Interpreted by me: Heart rate 101, sinus tachycardia, normal intervals, leftward axis, no acute ST/T wave abnormalities present, no acute changes from previous EKG on October 07, 2019 [] Radiology/Procedures Radiology/[place] [address] IMAGING REPORT Signed PATIENT: KOBY ASIF ACCOUNT: [id number] : 1945 LOCATION: ER AGE: 74 SEX: M EXAM STATUS: PRE ER ORD. PHYSICIAN: HEATHER MENDOZA MD REASON: double vision starting at 1755 PROCEDURE: CT CODE STROKE HEAD WO EXAM: CT head without contrast INDICATION: Double vision, stroke alert COMPARISON: CT head 05/24/2019 TECHNIQUE: Axial CT imaging through the head without intravenous contrast. One or more of the following individualized dose reduction techniques were utilized for this examination: 1. Automated exposure control 2. Adjustment of the mA and/or kV according to patient size 3. Use of iterative reconstruction technique. FINDINGS: The ventricles and sulci are mildly enlarged. Anderson-white matter differentiation is maintained. There is no intracranial hemorrhage, acute infarct, or mass lesion. Basal cisterns are clear. There are calcifications in the cavernous carotid arteries and left intradural vertebral artery. The skull and scalp are intact. The visualized portion of the paranasal sinuses and mastoid air cells are clear. Globes and orbits are intact. IMPRESSION: 1. No acute intracranial abnormality. 2. Unchanged mild volume loss. Results discussed by Dr. Peterson with Dr. Mendoza at 7:24 PM on 11/30/2019 FOR INTERNAL CODING PURPOSES Critical result: Findings discussed with HEATHER MENDOZA at 11/30/2019 7:24 PM. RESULT CODE: (C) Electronically signed by: Liliana Peterson MD (11/30/2019 7:25 PM) [id number] DICTATED AND SIGNED BY: LILIANA PETERSON MD DATE: 11/30/191924 CC: HEATHER MENDOZA MD; ISH MARCUS MD ~ [] Course & Med Decision Making Course & Med Decision Making I contacted pertinent Labs and Imaging studies reviewed. (See chart for details) Patient underwent CT imaging of the head in the emergency department which showed no acute changes. I contacted the patient's neurologist, Dr. Ferguson, who confirmed that the patient has had history of oculomotor nerve palsy. He does not believe that this is due to an acute stroke given the patient has history of this. The patient also states that he does not think that this is due to acute stroke. He states that he wishes to go home at this time. Blood work and EKG are unremarkable. The patient is agreeable to follow-up with Dr. Ferguson of neurology in the next 1 to 2 days. I recommended return to the emergency department for any worsening or severe symptoms. Patient voiced understanding and agreement with treatment plan. [] Dragon Disclaimer Dragon Disclaimer This electronic medical record was generated, in whole or in part, using a voice recognition dictation system. Departure Departure: Impression: Primary Impression: Oculomotor nerve palsy, right eye Disposition: HOME/RESIDENCE PRIOR TO ADM Condition: STABLE Referrals: ISH MARCUS MD (PCP) REECE FERGUSON MD Additional Instructions: CT imaging of your head showed no changes consistent with a stroke. You have what is called an oculomotor nerve palsy which is a dysfunction of the nerve that controls muscles around your eye including those that are responsible for helping your eye move. I have spoken with your neurologist, Dr. Ferguson, who notes that this has been an ongoing problem. You do not require admission to the hospital at this time but it is recommended that you follow-up with Dr. Ferguson within the next 2 days for reevaluation of this condition. Return to the emergency department if you develop any worsening symptoms including weakness of your arm or leg, inability to speak or swallow properly, loss of vision, or any other worrisome symptoms. Justification of Admission: Justification of Admission: Justification of Admission Dx: N/A Angina: Cresendo Worsening of Sym HEATHER MENDOZA MD Nov 30, 2019 20:29
[2019-11-30 20:50] VITALS: BP 148/100
--- NOTE | 2019-11-30 21:43 | EKG ---
[address] [address] Test Date: 2019-11-30 Test Time: 19:48:52 Pat Name: KOBY ASIF Department: Room: Gender: M Laryngologist: NAHED : 1945 Requested By: HEATHER RETANA Order Number: [id number] Reading MD: Caleb Doan MD Measurements Intervals [place] Rate: 101 P: 33 CA: 168 QRS: -26 QRSD: 86 T: 118 QT: 334 QTc: 439 Interpretive Statements SINUS TACHYCARDIA LEFTWARD AXIS Electronically Signed On 12-01-2019 12:30:52 CDT by Caleb Doan MD
== END 2019-11-30 21:08 | disposition home or self-care (01) ==
LOC: ER 18:43
DX: H49.01 Third [oculomotor] nerve palsy, right eye (principal); I25.810 Atherosclerosis of coronary artery bypass graft(s) without angina pectoris; K21.9 Gastro-esophageal reflux disease without esophagitis; E78.00 Pure hypercholesterolemia, unspecified; I11.9 Hypertensive heart disease without heart failure; E03.9 Hypothyroidism, unspecified; I25.2 Old myocardial infarction; Z86.73 Personal history of transient ischemic attack (TIA), and cerebral infarction without residual deficits; Z88.8 Allergy status to other drugs, medicaments and biological substances
CPT/HCPCS: 36415; 70450; 80048; 82947; 85027; 85610; 85730; 93005; 99285

== ENCOUNTER → 2019-12-29 | Outpatient (CLI) | payer MEDICARE, BC ==
[2019-11-30 20:50] VITALS: BP 148/100
--- NOTE | 2019-12-29 11:37 | CARD ---
MR#: [id number] Date of Study: 12/29/2019 Ordering Physician: VERONICA SCHULZ, Referring Physician: VERONICA SCHULZ, Tech: Lindy Carlson BRII APPROVED REPORT EXAM: Two-dimensional and M-mode echocardiogram with Doppler and color Doppler. Other Information Quality : Good INDICATION Cardiac Disease: CAD Surgery/Intervention CABG: Date: 09/29/[address]: [facility] 2D DIMENSIONS RVDd2.6 (2.9-3.5cm)Left Atrium(2D)3.6 (1.6-4.0cm) IVSd1.0 (0.7-1.1cm)Aortic Root(2D)2.6 (2.0-3.7cm) LVDd3.7 (3.9-5.9cm)LVOT Diameter1.9 (1.8-2.4cm) PWd0.9 (0.7-1.1cm)LVDs2.9 (2.5-4.0cm) FS (%) 20.2 %SV23.9 ml LVEF(%)50.0 (>50%) Aortic Valve AoV Peak Keven.144.3cm/sAoV VTI26.9cm AO Peak GR.8.3mmHgLVOT Peak Keven.151.1cm/s LVOT VTI 29.97cmAO Mean GR.5mmHg NUBIA (VMAX)3.75lx4AFW (VTI)3.32cm2 Mitral Valve MV E Wxswhijp892.6cm/sMV DECEL NRVO193vm MV A Zdwqlgra22.9cm/sE/A Ratio1.4 Tricuspid Valve TR P. Nrgavsqe755nz/sRAP EZGZTKLH7mxRv TR Peak Gr.68rmPqMNDE67hySa Pulmonary Vein S1 Hbjjroao28.5cm/sD2 Ugttfomr318.9cm/s LEFT VENTRICLE The left ventricle is normal size. There is normal left ventricular wall thickness. Left ventricle sy stolic function is normal. The Ejection Fraction is 55-60%. There is normal LV segmental wall motion. Transmitral Doppler flow pattern is Grade II-pseudonormal filling dynamics. RIGHT VENTRICLE The right ventricle is normal size. The right ventricular systolic function is normal. ATRIA The left atrium size is normal. The right atrium size is normal. The interatrial septum is intact wit h no evidence for an atrial septal defect or patent foramen ovale as noted on 2-D or Doppler imaging. AORTIC VALVE The aortic valve is calcified but opens well. Doppler and Color Flow revealed no significant aortic r egurgitation. There is no significant aortic valvular stenosis. MITRAL VALVE The mitral valve is calcified but opens well. There is no evidence of mitral valve prolapse. There is no mitral valve stenosis. Doppler and Color-flow revealed trace mitral regurgitation. TRICUSPID VALVE The tricuspid valve is normal in structure and function. Doppler and Color Flow revealed mild tricusp id regurgitation. There is mild to moderate pulmonary hypertension. The PA pressure was estimated at 40 mmHg. There is no tricuspid valve stenosis. PULMONIC VALVE The pulmonary valve is normal in structure and function. Doppler and Color Flow revealed no pulmonic valvular regurgitation. There is no pulmonic valvular stenosis. GREAT VESSELS The aortic root is normal in size. The ascending aorta is not well seen. The IVC is normal in size an d collapses >50% with inspiration. PERICARDIAL EFFUSION There is no evidence of significant pericardial effusion. Critical Notification Critical Value: No <Conclusion> Left ventricle systolic function is normal. The Ejection Fraction is 55-60%. There is normal LV segmental wall motion. Trace mitral regurgitation. Mild tricuspid regurgitation. The PA pressure was estimated at 40 mmHg. There is no evidence of significant pericardial effusion. Signed by : John Godfrey, Electronically Approved : 12/29/2019 11:36:53
== END ==
LOC: ECHO 08:45
PROVIDERS: ATTEND Internal Medicine Cardiovascular Disease
DX: I08.3 Combined rheumatic disorders of mitral, aortic and tricuspid valves (principal); I25.10 Atherosclerotic heart disease of native coronary artery without angina pectoris
CPT/HCPCS: 93306

== ENCOUNTER 2020-01-06 10:25 | Emergency (ER) | payer MEDICARE, BC ==
[~2020-01-06] VITALS: Ht 160 cm; Wt 70.9 kg
--- NOTE | 2020-01-06 10:38 | PHYS DOC ---
Past History Past Medical History: CAD, High Cholesterol, Hypertension, Hypothyroid Past Surgical History: Coronary Bypass Surgery Additional Past Surgical Histo: HERNIA SURGERY , 2 cardiac stents Smoking: Non-smoker Alcohol Use: None Drug Use: None General Adult EDM: Chief Complaint: NEURO SYMPTOMS/DEFICITS HPI: HPI: Patient is a 74 year old Male who presents with hypertension with near syncope and tingling in his Right cheek and lower lip. These symptoms began this AM with blood pressure recorded at 185/95 at 545AM and heat flashes with blood pressure at 163/83 at 620AM. Patient has a history of CABGx3 in September 2019 performed at [facility]. He is currently not experiencing any symptoms. He denies any chest pain, shortness of breath or palpitations. He denies any trauma, falls, or loss of consciousness or urinary or stool incontinence. Patient states that he was added a new medication, metoprolol a month ago at [facility]. Patient reports taking his AM medications prior to visit. Review of Systems: Review of Systems: Constitutional: Denies fever or chills Eyes: Denies redness or eye pain HENT: Denies nasal congestion or sore throat Respiratory: Denies cough or shortness of breath Cardiovascular: Denies chest pain or palpitations GI: Admits constipation. Denies abdominal pain, nausea, or vomiting : Denies dysuria or hematuria Musculoskeletal: Denies back pain or joint pain Integument: Denies rash or skin lesions Neurologic: Denies headache, focal weakness or sensory changes; reports dizziness Complete systems were reviewed and found to be within normal limits, except as documented in this note. Allergies: Allergies: Allergies Coded Allergies Type Severity Reaction Last Updated Verified atorvastatin Allergy Intermediate Hives 11/14/18 Yes fenofibrate Allergy Intermediate Hives 11/14/18 Yes rosuvastatin calcium Allergy Intermediate Hives 11/14/18 Yes ezetimibe Allergy Unknown 12/22/18 Yes pravastatin Allergy Unknown 12/22/18 Yes simvastatin Allergy Unknown 12/22/18 Yes Physical Exam: PE: Constitutional: Well developed, well nourished, no acute distress, non-toxic appearance HENT: Normocephalic, atraumatic Eyes: PERRL, EOMI, conjunctiva normal, no discharge Neck: Normal range of motion, no tenderness, supple Lungs & Thorax: No respiratory distress, equal chest rise and fall Abdomen: Soft, no tenderness Skin: Warm, dry, no erythema, no rash Extremities: No tenderness, ROM intact, no edema Neurologic: Alert and oriented X 3, normal motor function, normal sensory function, no focal deficits noted, cerebellar function intact Psychologic: Affect anxious, judgment normal Current Patient Data: Vital Signs: Vital Signs Date Time Temp Pulse Resp B/P (MAP) Pulse Ox O2 Delivery O2 Flow Rate FiO2 01/06/20 10:29 97.8 108 16 152/91 (111) 100 Room Air EKG: EKG: Performed on 01/06/2020 at 10:30:37. Read at 10:32. HR 102 BPM Intervals - WV 156ms, QRS 90ms, QT 340ms, QTc 447ms Interpretation: Sinus tachycardia, abnormal left axis deviation Radiology/Procedures: Radiology/Procedures: PROCEDURE: CT HEAD WO CONTRAST CT HEAD WO CONTRAST History: Reason: right sided facial numbness, hypertension / Spl. Instructions: / History: Comparison: November 22, 2019 Technique: Noncontrast CT imaging was performed of the head. Exposure: One or more of the following individualized dose reduction techniques were utilized for this examination: 1. Automated exposure control 2. Adjustment of the mA and/or kV according to patient size 3. Use of iterative reconstruction technique. Findings: No intracranial hemorrhage. No mass effect. No hydrocephalus. Mild brain parenchymal volume loss, unchanged. Mild foci of decreased attenuation within the hemispheric white matter, most often due to chronic microvascular ischemia, unchanged. Imaged orbits are unremarkable. Imaged paranasal sinuses and mastoid air cells are clear. No acute calvarial fracture. Small right parietal outer table benign-appearing bony exostosis, unchanged. Impression: 1. No acute intracranial abnormality. Electronically signed by: Irwin Glez DO (01/06/2020 11:28 AM) [id number] PROCEDURE: PORTABLE CHEST 1V PORTABLE CHEST 1V History: Reason: weakness, SOA / Spl. Instructions: / History: Comparison: October 07, 2019 Findings: Small left pleural effusion. Patchy left basilar opacity. Mild left basilar linear atelectasis. Prior mid sternotomy. Unchanged heart size. No pneumothorax. Impression: 1. Small left pleural effusion with adjacent opacity, may represent atelectasis or consolidation. Electronically signed by: Irwin Glez DO (01/06/2020 11:12 AM) [id number] Course & Med Decision Making: Course & Med Decision Making Patient is a 74yo male who presents with hypertension, near syncope, and tingling in Right cheek and lower lip. These symptoms were reported with higher blood pressure. He has a history of CABGx3 in September 2019. He denies any current symptoms. Patient has taken his AM medications prior to visit. NIHSS 0. EKG stable. Labs obtained and posted to chart. CT head without acute process. Chest x-ray demonstrated small left atelectasis; patient denies any symptoms of cough, wheezing, or shortness of breath. HPI and physical exam with some concern for anxiety component. Discussed with patient about anxiety playing role in his blood pressure and symptoms. Patient denies anxiety. Patient feels comfortable following up with his PCP/cardiology. Patient stable for discharge with outpatient follow-up with PCP/cardiology. Discussed findings and plan with patient, who acknowledges understanding and agreement. Dragon Disclaimer: Jordan Disclaimer: This electronic medical record was generated, in whole or in part, using a voice recognition dictation system. Departure Departure: Impression: Primary Impression: Near syncope Disposition: 01 DC HOME SELF CARE/HOMELESS Condition: STABLE Referrals: ISH MARCUS MD (PCP) VERONICA SCHULZ MD Patient Instructions: Near-Syncope, [id number] NIHSS - ED NIH Stroke Scale: NIH Stroke Scale Response (Comments) Value Level of Consciousness: 0 Alert/Responsive 0 LOC Questions: 0 Answers both correctly 0 LOC Commands: 0 Performs both tasks 0 Best Gaze: 0 Normal 0 Visual: 0 No visual loss 0 Facial Palsy: 0 Normal, symmetrical 0 Motor - Left Arm 0 No drift 0 Motor - Right Arm 0 No drift 0 Motor - Left Leg 0 No drift 0 Motor: Right Leg 0 No drift 0 Limb Ataxia: 0 Absent 0 Sensory: 0 No loss 0 Best Language: 0 Normal 0 Dysathria: 0 Normal 0 Extinction and Inattention: 0 Normal 0 Total 0 COLBERTPATY DO Jan 06, 2020 10:38
[2020-01-06 10:52] LABS: BASO % 0 % (0-3); EOS # 0.2 x10^3/uL (0.0-0.7); EOS % 2 % (0-3); HEMATOCRIT 44.3 % (39.0-53.0); HEMOGLOBIN 14.3 g/dL (13.0-17.5); LYMPH # 1.7 x10^3/uL (1.0-4.8); LYMPH % 17 % (24-48); MEAN CORPUSCULAR HEMOGLOBIN 28 pg (25-35); MEAN CORPUSCULAR HGB CONC 32 g/dL (31-37); MEAN CORPUSCULAR VOLUME 88 fL (79-100); MONO # 0.9 x10^3/uL (0.0-1.1); MONO % 9 % (0-9); NEUT # 6.8 x10^3uL (1.8-7.7); NEUT % 72 % (31-73); PLATELET COUNT 258 x10^3/uL (140-400); RED BLOOD COUNT 5.06 x10^6/uL (4.30-5.70); RED CELL DISTRIBUTION WIDTH 14.7 % (11.5-14.5); WHITE BLOOD COUNT 9.6 x10^3/uL (4.0-11.0)
[2020-01-06 11:01] LABS: CALCIUM 10.4 mg/dL (8.5-10.1); CREATININE 1.2 mg/dL (0.7-1.3); GFR 59.5; POTASSIUM 3.5 mmol/L (3.5-5.1)
--- NOTE | 2020-01-06 11:14 | RAD ---
PORTABLE CHEST 1V History: Reason: weakness, SOA / Spl. Instructions: / History: Comparison: October 07, 2019 Findings: Small left pleural effusion. Patchy left basilar opacity. Mild left basilar linear atelectasis. Prior mid sternotomy. Unchanged heart size. No pneumothorax. Impression: 1. Small left pleural effusion with adjacent opacity, may represent atelectasis or consolidation. Electronically signed by: Irwin Glez DO (01/06/2020 11:12 AM) [id number]
[2020-01-06 11:18] LABS: ALBUMIN/GLOBULIN RATIO 0.8 (1.0-1.7); MAGNESIUM 2.2 mg/dL (1.8-2.4); TOTAL BILIRUBIN 0.5 mg/dL (0.2-1.0); TOTAL PROTEIN 8.9 g/dL (6.4-8.2)
--- NOTE | 2020-01-06 11:30 | RAD ---
CT HEAD WO CONTRAST History: Reason: right sided facial numbness, hypertension / Spl. Instructions: / History: Comparison: November 22, 2019 Technique: Noncontrast CT imaging was performed of the head. Exposure: One or more of the following individualized dose reduction techniques were utilized for this examination: 1. Automated exposure control 2. Adjustment of the mA and/or kV according to patient size 3. Use of iterative reconstruction technique. Findings: No intracranial hemorrhage. No mass effect. No hydrocephalus. Mild brain parenchymal volume loss, unchanged. Mild foci of decreased attenuation within the hemispheric white matter, most often due to chronic microvascular ischemia, unchanged. Imaged orbits are unremarkable. Imaged paranasal sinuses and mastoid air cells are clear. No acute calvarial fracture. Small right parietal outer table benign-appearing bony exostosis, unchanged. Impression: 1. No acute intracranial abnormality. Electronically signed by: Irwin Glez DO (01/06/2020 11:28 AM) [id number]
[2020-01-06 12:10] LABS: BACTERIA,URINE 0 /HPF (0-FEW); BILIRUBIN,URINE NEG (NEG); CLARITY,URINE CLEAR; COLOR,URINE YELLOW; GLUCOSE,URINE NEG (NEG); NITRITE,URINE NEG (NEG); RBC,URINE OCC /HPF (0-2); SQUAMOUS EPITHELIAL CELL,UR OCC /LPF; UROBILINOGEN,URINE 0.2 mg/dL (0.2 mg/dL); WBC,URINE OCC /HPF (0-4)
[2020-01-06 12:14] VITALS: BP 131/52
--- NOTE | 2020-01-06 14:38 | EKG ---
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
== END 2020-01-06 12:20 | disposition home or self-care (01) ==
LOC: ER 10:25
DX: R55 Syncope and collapse (principal); I10 Essential (primary) hypertension; K59.00 Constipation, unspecified; I25.810 Atherosclerosis of coronary artery bypass graft(s) without angina pectoris; E78.00 Pure hypercholesterolemia, unspecified; E03.9 Hypothyroidism, unspecified; Z88.8 Allergy status to other drugs, medicaments and biological substances
CPT/HCPCS: 36415; 70450; 71045; 80053; 81001; 82553; 83735; 83880; 84484; 85025; 85610; 85730; 93005; 99285-25

== ENCOUNTER 2020-03-25 12:51 | Emergency (ER) | payer MEDICARE, BC ==
[~2020-03-25] VITALS: Ht 160 cm; Wt 70.9 kg
--- NOTE | 2020-03-25 13:30 | RAD ---
CT HEAD/BRAIN WO History: Reason: headache, double vision / Spl. Instructions: / History: Comparison: January 06, 2020 Technique: Noncontrast CT imaging was performed of the head. Exposure: One or more of the following individualized dose reduction techniques were utilized for thi s examination: 1. Automated exposure control 2. Adjustment of the mA and/or kV according to patient size 3. Use of iterative reconstruction technique. Findings: No intracranial hemorrhage. No mass effect. No hydrocephalus. Mild foci of decreased attenuation within the hemispheric white matter, most often due to chronic alphonso rovascular ischemia, unchanged. Mild brain parenchymal volume loss. Imaged orbits are unremarkable. Imaged paranasal sinuses and mastoid air cells are clear. No acute ca lvarial fracture. Impression: 1. No acute intracranial abnormality. Electronically signed by: Irwin Glez DO (03/25/2020 1:28 PM) [id number]
[2020-03-25 13:31] VITALS: BP 176/99
[2020-03-25 13:36] LABS: BASO # 0.1 x10^3/uL (0.0-0.2); BASO % 1 % (0-3); CALCIUM 10.1 mg/dL (8.5-10.1); EOS # 0.3 x10^3/uL (0.0-0.7); EOS % 4 % (0-3); GFR 73.5; HEMATOCRIT 41.9 % (39.0-53.0); HEMOGLOBIN 13.7 g/dL (13.0-17.5); LYMPH % 24 % (24-48); MEAN CORPUSCULAR HEMOGLOBIN 28 pg (25-35); MEAN CORPUSCULAR HGB CONC 33 g/dL (31-37); MEAN CORPUSCULAR VOLUME 84 fL (79-100); MONO # 0.7 x10^3/uL (0.0-1.1); MONO % 8 % (0-9); NEUT # 5.4 x10^3uL (1.8-7.7); NEUT % 64 % (31-73); PLATELET COUNT 300 x10^3/uL (140-400); POTASSIUM 3.8 mmol/L (3.5-5.1); RED BLOOD COUNT 4.96 x10^6/uL (4.30-5.70); RED CELL DISTRIBUTION WIDTH 15.3 % (11.5-14.5); WHITE BLOOD COUNT 8.4 x10^3/uL (4.0-11.0)
--- NOTE | 2020-03-25 13:39 | PHYS DOC ---
Past History Past Medical History: CAD, High Cholesterol, Hypertension, Hypothyroid Past Surgical History: Coronary Bypass Surgery Additional Past Surgical Histo: HERNIA SURGERY , 2 cardiac stents Smoking: Non-smoker Alcohol Use: None Drug Use: None Adult General Chief Complaint Chief Complaint: HEADACHE HPI HPI Patient is 74-year-old male who presents to the emergency room complaining of a frontal headache with double vision. Patient states that around 1145 today he was hit with a pressure pain in his forehead behind both eyes. He noticed while he was reading that he had double vision. He does not have double vision when he is looking at a distance. The symptoms have slowly improved. He has very minimal double vision at this time. He has had episodes like this previously and has been told that they are related to TIA so he came to the emergency room to be evaluated. Denies any other symptoms. Does not have any numbness, weakness, difficulty with gait, difficulty with speech. He has a follow-up appointment with neurology in 1 week. Review of Systems Review of Systems Complete ROS is negative unless otherwise documented in HPI Allergies Allergies Allergies Coded Allergies Type Severity Reaction Last Updated Verified atorvastatin Allergy Intermediate Hives 11/14/18 Yes fenofibrate Allergy Intermediate [facility] 11/14/18 Yes rosuvastatin calcium Allergy Intermediate [facility] 11/14/18 Yes ezetimibe Allergy Unknown 12/22/18 Yes pravastatin Allergy Unknown 12/22/18 Yes simvastatin Allergy Unknown 12/22/18 Yes Physical Exam Physical Exam General: Awake, alert, NAD. Well Nourished, well hydrated. Cooperative HEENT: Atraumatic, EOMI, PERRL, airway patent, moist oral mucosa Neck: Supple, trachea midline Respiratory: CTA bilaterally, normal effort, no wheezing/crackles CV: RRR, no murmur, cap refill <2 GI: Soft, nondistended, nontender, no masses MSK: No obvious deformities Skin: Warm, dry, intact Neuro: A&O x3, speech NL, 5/5 strength in BUE/BLE distally and proximally, CN 2- 12 intact, cerebellar testing normal Psych: Normal affect, normal mood, not suicidal or homicidal Current Patient Data Vital Signs Vital Signs Date Time Temp Pulse Resp B/P (MAP) Pulse Ox O2 Delivery O2 Flow Rate FiO2 03/25/20 13:31 99 16 176/99 (124) 99 Room Air 03/25/20 12:58 98.1 Lab Results Laboratory Tests Test 03/25/20 12:57 Glucose (Fingerstick) 122 mg/dL (70-99) H EKG EKG [] Radiology/Procedures Radiology/Procedures [] Heart Score Risk Factors: Risk Factors: DM, Current or recent (<one month) smoker, HTN, HLP, family history of CAD, obesity. Risk Scores: Risk Factors: DM, Current or recent (<one month) smoker, HTN, HLP, family history of CAD, obesity. Course & Med Decision Making Course & Med Decision Making Pertinent Labs and Imaging studies reviewed. (See chart for details) Patient is a 74-year-old male who presents to the emergency room after an episode where he had sudden onset headache with double vision. The symptoms have mostly resolved. He has an NIH score of 0. This does not appear to be a TIA or stroke. CT was done to rule out a subarachnoid bleed and was negative. At this time patient is stable and he will be discharged home to follow-up with neurology next week. Patient's test results and vitals while in the ED were fully reviewed and discussed with the patient. Patient is stable and at this time does not need admission to the hospital. We have discussed strict return precautions and the importance of following up with their Primary Care Physician. Patient stated understanding and was given an opportunity to ask any questions. Patient is in agreement with plan. Dragon Disclaimer Dragon Disclaimer This electronic medical record was generated, in whole or in part, using a voice recognition dictation system. Departure Departure: Impression: Primary Impression: Headache Additional Impression: Double vision Disposition: 01 DC HOME SELF CARE/HOMELESS Condition: STABLE Referrals: ISH MARCUS MD (PCP) REECE FERGUSON MD Patient Instructions: Eye - Blurred Vision Problem Qualifiers SCHUYLER RAINES MD Mar 25, 2020 13:39
--- NOTE | 2020-03-25 14:09 | EKG ---
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
== END 2020-03-25 13:52 | disposition home or self-care (01) ==
LOC: ER 12:51
DX: R51.9 Headache, unspecified (principal); H53.2 Diplopia; E78.00 Pure hypercholesterolemia, unspecified; I25.810 Atherosclerosis of coronary artery bypass graft(s) without angina pectoris; I10 Essential (primary) hypertension; E03.9 Hypothyroidism, unspecified; Z88.8 Allergy status to other drugs, medicaments and biological substances
CPT/HCPCS: 36415; 70450; 80048; 82947; 84484; 85025; 93005; 99285-25

== ENCOUNTER → 2020-03-25 | Outpatient (CLI) | payer MEDICARE, BC ==
--- NOTE | 2020-03-25 15:58 | RAD ---
Chest radiograph 03/25/2020 9:44 AM INDICATION: Congestion COMPARISON: 01/06/2020 TECHNIQUE: Frontal and lateral views of the chest are provided. FINDINGS: The cardiomediastinal silhouette is within normal limits. Small left pleural effusion with adjacent compressive atelectasis versus infiltrate appears stable. M ild pulmonary emphysema. No pulmonary vascular congestion or pneumothorax. Median sternotomy changes are present. No significant osseous abnormality is identified. IMPRESSION: Stable small left pleural effusion with adjacent compressive atelectasis versus infiltrate. Electronically signed by: Brie Julio MD (03/25/2020 3:56 PM) [id number]
== END ==
LOC: PMG 09:27
PROVIDERS: ATTEND Family Medicine
DX: J90 Pleural effusion, not elsewhere classified (principal); J98.11 Atelectasis; J43.9 Emphysema, unspecified
CPT/HCPCS: 71046

== ENCOUNTER → 2020-04-14 | Outpatient (CLI) | payer MEDICARE, BC ==
[2020-03-25 13:31] VITALS: BP 176/99
[~2020-04-14] MED LIST changes: -ISOS30TA4 PO; +ISOS30TA68 PO
--- NOTE | 2020-04-14 16:42 | RAD ---
EXAM: Lumbar spine, 3 views. HISTORY: Pain. COMPARISON: None. FINDINGS: 3 views of the lumbar spine are obtained. There is no listhesis. The vertebral bodies are n ormal in height and the disc spaces are preserved. There is mild facet arthropathy at the lumbosacral junction. There are surgical anchors within the bones. IMPRESSION: Mild degenerative change at the lumbosacral junction. Electronically signed by: Tammi Funes MD (04/14/2020 4:40 PM) [id number]
== END ==
LOC: RAD 14:03
PROVIDERS: ATTEND Psychiatry & Neurology Neurology
DX: M47.817 Spondylosis without myelopathy or radiculopathy, lumbosacral region (principal)
CPT/HCPCS: 72100

== ENCOUNTER → 2020-05-04 | Outpatient (CLI) | payer MEDICARE, BC ==
[2020-05-04 14:48] LABS: ALBUMIN 3.6 g/dL (3.4-5.0); ALBUMIN/GLOBULIN RATIO 0.8 (1.0-1.7); CALCIUM 9.6 mg/dL (8.5-10.1); CREATININE 1.4 mg/dL (0.7-1.3); GFR 49.8; POTASSIUM 3.8 mmol/L (3.5-5.1); TOTAL BILIRUBIN 0.3 mg/dL (0.2-1.0)
== END ==
LOC: LAB 13:48
PROVIDERS: ATTEND Internal Medicine Cardiovascular Disease
DX: E78.5 Hyperlipidemia, unspecified (principal)
CPT/HCPCS: 36415; 80053; 80061

== ENCOUNTER 2020-06-08 08:45 | Emergency (ER) | payer MEDICARE, BC ==
[~2020-06-08] VITALS: Ht 160 cm; Wt 73.0 kg
[2020-06-08 08:50] VITALS: BP 130/68
[2020-06-08] MEDS ORDERED: IV NORMAL SALINE 1,000ML 1,000 ML IV ONE (09:00)
--- NOTE | 2020-06-08 09:03 | EKG ---
[facility] ED 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
[2020-06-08 09:34] LABS: BASO # 0.1 x10^3/uL (0.0-0.2); BASO % 1 % (0-3); EOS # 0.2 x10^3/uL (0.0-0.7); EOS % 3 % (0-3); HEMATOCRIT 42.9 % (39.0-53.0); HEMOGLOBIN 14.3 g/dL (13.0-17.5); LYMPH # 1.5 x10^3/uL (1.0-4.8); LYMPH % 20 % (24-48); MEAN CORPUSCULAR HEMOGLOBIN 29 pg (25-35); MEAN CORPUSCULAR HGB CONC 33 g/dL (31-37); MEAN CORPUSCULAR VOLUME 86 fL (79-100); MONO # 0.5 x10^3/uL (0.0-1.1); MONO % 7 % (0-9); NEUT # 5.2 x10^3uL (1.8-7.7); NEUT % 70 % (31-73); PLATELET COUNT 218 x10^3/uL (140-400); RED BLOOD COUNT 4.98 x10^6/uL (4.30-5.70); RED CELL DISTRIBUTION WIDTH 14.8 % (11.5-14.5); WHITE BLOOD COUNT 7.4 x10^3/uL (4.0-11.0)
[2020-06-08 09:44] LABS: ANION GAP 10 (6-14); BLOOD UREA NITROGEN 20 mg/dL (8-26); BUN/CREATININE RATIO 18 (6-20); CALCIUM 9.9 mg/dL (8.5-10.1); CARBON DIOXIDE 25 mmol/L (21-32); CHLORIDE 105 mmol/L (98-107); CREATININE 1.1 mg/dL (0.7-1.3); GFR 65.6; GLUCOSE 116 mg/dL (70-99); POTASSIUM 3.9 mmol/L (3.5-5.1); SODIUM 140 mmol/L (136-145)
[2020-06-08 10:00] LABS: ALBUMIN 3.8 g/dL (3.4-5.0); ALBUMIN/GLOBULIN RATIO 0.9 (1.0-1.7); ALK PHOS 77 U/L (46-116); ALT (SGPT) 44 U/L (16-63); AST (SGOT) 18 U/L (15-37); LIPASE 119 U/L (73-393); MAGNESIUM 1.8 mg/dL (1.8-2.4); TOTAL BILIRUBIN 0.4 mg/dL (0.2-1.0); TOTAL PROTEIN 7.9 g/dL (6.4-8.2)
--- NOTE | 2020-06-08 10:20 | PHYS DOC ---
Past History Past Medical History: CAD, High Cholesterol, Hypertension, Hypothyroid Past Surgical History: Coronary Bypass Surgery Additional Past Surgical Histo: HERNIA SURGERY , 2 cardiac stents, Quad bypass 2020 Smoking: Non-smoker Alcohol Use: None Drug Use: None Social History He is a nonsmoker, nondrinker. He is retired. 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 General Adult EDM: Chief Complaint: OTHER COMPLAINTS HPI: HPI: 75 old male was driven to emergency department by neighbor after experiencing t hrobbing neck sensation this morning that he attributes to an arrhythmia. Patient claims to have the same sensation Saturday for which he called EMS and after arrival determined that he did not need to go to the emergency department. Patient awoke at 3 AM from this throbbing neck sensation and checked his blood pressure and saw that it was slightly elevated and noticed some dropped heartbeats. Patient felt presyncopal during this event, did not pass out, did not lose consciousness. Patient also had minor left chest pain which quickly went away. Patient claims to have cold sensation in chest and minor headache that dissipated after taking 1 tablet nitroglycerin. In the emergency department patient feels normal. Patient denies any nausea vomiting f ever sweating. Review of Systems: Review of Systems: Constitutional: Denies fever or chills Eyes: Denies change in visual acuity HENT: Denies nasal congestion or sore throat Respiratory: Denies cough or shortness of breath Cardiovascular: Denies chest pain or edema GI: Denies abdominal pain, nausea, vomiting, bloody stools or diarrhea : Denies dysuria Musculoskeletal: Denies back pain or joint pain Integument: Denies rash Neurologic: Denies headache, focal weakness or sensory changes Endocrine: Denies polyuria or polydipsia Lymphatic: Denies swollen glands Psychiatric: Denies depression or anxiety Family History: Family History: Mom and dad both of sudden cardiac arrest. One brother of coronary artery disease. Current Medications: Current Meds: aspirin, amlodipine, calcium carbonate, vitamin D3, Synthroid, magnesium, multivitamin, nitroglycerin, omega-3, pantoprazole, MiraLax Current Medications Medications (Trade) Dose Ordered Sig/Tessy Start Time Stop Time Status Last Admin Dose Admin Sodium Chloride 1,000 ml @ 1,000 mls/hr 1X ONCE 06/08/20 09:00 06/08/20 09:59 DC Allergies: Allergies: Allergies Coded Allergies Type Severity Reaction Last Updated Verified atorvastatin Allergy Intermediate Hives 06/08/20 Yes fenofibrate Allergy Intermediate Hives 06/08/20 Yes rosuvastatin calcium Allergy Intermediate Hives 06/08/20 Yes ezetimibe Allergy Unknown 06/08/20 Yes pravastatin Allergy Unknown 06/08/20 Yes simvastatin Allergy Unknown 06/08/20 Yes Physical Exam: PE: Constitutional: Well developed, well nourished, no acute distress, non-toxic appearance. [] HENT: Normocephalic, atraumatic, bilateral external ears normal, oropharynx moist, no oral exudates, nose normal. [] Eyes: PERRLA, EOMI, conjunctiva normal, no discharge. [] Neck: Normal range of motion, no tenderness, supple, no stridor. [] Cardiovascular:Heart rate regular rhythm, no murmur [] Lungs & Thorax: Bilateral breath sounds clear to auscultation [] Abdomen: Bowel sounds normal, soft, no tenderness, no masses, no pulsatile masses. [] Skin: Warm, dry, no erythema, no rash. [] Back: No tenderness, no CVA tenderness. [] Extremities: No tenderness, no cyanosis, no clubbing, ROM intact, no edema. [] Neurologic: Alert and oriented X 3, normal motor function, normal sensory f unction, no focal deficits noted. [] Psychologic: Affect normal, judgement normal, mood normal. [] Current Patient Data: Labs: Laboratory Tests Test 06/08/20 09:11 White Blood Count 7.4 x10^3/uL (4.0-11.0) Red Blood Count 4.98 x10^6/uL (4.30-5.70) Hemoglobin 14.3 g/dL (13.0-17.5) Hematocrit 42.9 % (39.0-53.0) Mean Corpuscular Volume 86 fL (79-100) Mean Corpuscular Hemoglobin 29 pg (25-35) Mean Corpuscular Hemoglobin Concent 33 g/dL (31-37) Red Cell Distribution Width 14.8 % (11.5-14.5) H Platelet Count 218 x10^3/uL (140-400) Neutrophils (%) (Auto) 70 % (31-73) Lymphocytes (%) (Auto) 20 % (24-48) L Monocytes (%) (Auto) 7 % (0-9) Eosinophils (%) (Auto) 3 % (0-3) Basophils (%) (Auto) 1 % (0-3) Neutrophils # (Auto) 5.2 x10^3uL (1.8-7.7) Lymphocytes # (Auto) 1.5 x10^3/uL (1.0-4.8) Monocytes # (Auto) 0.5 x10^3/uL (0.0-1.1) Eosinophils # (Auto) 0.2 x10^3/uL (0.0-0.7) Basophils # (Auto) 0.1 x10^3/uL (0.0-0.2) Sodium Level 140 mmol/L (136-145) Potassium Level 3.9 mmol/L (3.5-5.1) Chloride Level 105 mmol/L (98-107) Carbon Dioxide Level 25 mmol/L (21-32) Anion Gap 10 (6-14) Blood Urea Nitrogen 20 mg/dL (8-26) Creatinine 1.1 mg/dL (0.7-1.3) Estimated GFR (Cockcroft-Gault) 65.6 BUN/Creatinine Ratio 18 (6-20) Glucose Level 116 mg/dL (70-99) H Calcium Level 9.9 mg/dL (8.5-10.1) Magnesium Level 1.8 mg/dL (1.8-2.4) Total Bilirubin 0.4 mg/dL (0.2-1.0) Aspartate Amino Transferase (AST) 18 U/L (15-37) Alanine Aminotransferase (ALT) 44 U/L (16-63) Alkaline Phosphatase 77 U/L (46-116) Creatine Kinase 65 U/L (39-308) Creatine Kinase MB (Mass) 0.7 ng/mL (0.0-3.6) Creatine Kinase MB Relative Index % (0-4) Troponin I Quantitative < 0.017 ng/mL (0-0.055) OX-Bxw-Y-Type Natriuretic Peptide 140 pg/mL (0-124) H Total Protein 7.9 g/dL (6.4-8.2) Albumin 3.8 g/dL (3.4-5.0) Albumin/Globulin Ratio 0.9 (1.0-1.7) L Lipase 119 U/L (73-393) Vital Signs: Vital Signs Date Time Temp Pulse Resp B/P (MAP) Pulse Ox O2 Delivery O2 Flow Rate FiO2 06/08/20 08:50 98.0 99 17 130/68 (88) 99 Room Air EKG: EK:55 sinus rhythm, 100 bpm, no ST elevation, QRS: 90ms, QT: 338 ms, QTc 439 ms, DC 162 ms Radiology/Procedures: Radiology/Procedures: [] Heart Score: C/O Chest Pain: N/A Course & Med Decision Making: Course & Med Decision Making 75-year-old male presented with neck throbbing that he attributes to irregular heartbeat. Patient was monitored in the emergency department. Labs drawn. No abnormalities found. Patient advised to follow-up with cardiology as outpatient. Dragon Disclaimer: Dragon Disclaimer: This electronic medical record was generated, in whole or in part, using a voice recognition dictation system. Departure Departure: Impression: Primary Impression: Palpitations Disposition: 01 DC HOME SELF CARE/HOMELESS Condition: STABLE Referrals: ISH MARCUS MD (PCP) VERONICA SCHULZ MD Patient Instructions: Palpitations, Vlxy-oe-Laco Additional Instructions: Please follow with your PCP and/or potash flaker for further evaluation and treatment. You may benefit from use of a Holter monitor. PATY COLBERT DO Jun 08, 2020 10:20
[2020-06-09 15:23] LABS: FREE T4 1.45 ng/dL (0.76-1.46); THYROID STIM HORMONE (TSH) 0.013 uIU/mL (0.358-3.740)
== END 2020-06-08 10:39 | disposition home or self-care (01) ==
LOC: ER 08:45
DX: R00.2 Palpitations (principal); R55 Syncope and collapse; R07.89 Other chest pain; R51.9 Headache, unspecified; E78.00 Pure hypercholesterolemia, unspecified; I25.810 Atherosclerosis of coronary artery bypass graft(s) without angina pectoris; E03.9 Hypothyroidism, unspecified; I10 Essential (primary) hypertension; Z88.8 Allergy status to other drugs, medicaments and biological substances
CPT/HCPCS: 36415; 80053; 82553; 83690; 83735; 83880; 84439; 84443; 84481; 84484; 85025; 93005; 99284

== ENCOUNTER → 2020-08-18 | Outpatient (CLI) | payer MEDICARE, BC ==
[~2020-08-18] MED LIST changes: -OMEP40CA45 PO; +OMEP40CA7 PO; +REGADENOSON 0.4 MG/5 ML DISP.SYRIN. IV ONE
--- NOTE | 2020-08-19 11:06 | RAD ---
MR#: [id number] Date of Study: 08/18/2020 Ordering Physician: VERONICA SCHULZ, Referring Physician: JIE DEAN Tech: ISAC Delacruz APPROVED REPORT Test Type: Pharmacological Stress Nurse/Tech: ISAC Delacruz Test Indications: CAD Cardiac History: CABG 2019 Medications: see EHR Medical History: see EHR Resting ECG: SR Resting Heart Rate: 103 bpm Resting Blood Pressure: 150/61mmHg Pharm. Details Pharmacologic stress testing was performed using 0.4mg per 5ml of regadenoson given intravenously ove r 7-10 seconds. POST EXERCISE Reason for Termination: Infusion complete Max HR: 132 bpm Max Blood Pressure: 139/44mmHg Blood Pressure response to exercise: Normal blood pressure response during stress. Chest Pain: No. INTERPRETATION Stress EKG Conclusion: The resting EKG showed a sinus tachycardia with a rate of 103 bpm and mild non specific ST segment changes. The stress EKG showed no significant changes from baseline. No EKG evidence of stress-induced ischemia. Imaging Protocol IMAGE PROTOCOL: Rest Tc-99m/stress Tc-99m 1 day Rest: Stress: Viability: Radiopharm.Tc99m HjarosajxAy11t Sestamibi Gxmn48eXi 31.5mCi Duration 15min. 10min. Img Date 08/18/2020 08/18/2020 Inj-Img Ppxo09ohp. 60min. Rest Admin Site:IV - Right HandAdministrator: ISAC Delacruz Stress Admin Site: IV - Right HandAdministrator: ISAC Delacruz STRESS DATA End Diast. Vol.68.0mlAv. Heart Rate97.0bpm End Syst. Vol.8.0mlCO Index BSA0.0L/min Myocardial Avcl840.0gEject. Ktmdypzn72.0% Stress Rates Pk. Fill Rate5.25EDV/secLVtime Pk. Fill 152.96msec Pk. Empty Rate6.20ESV/secLVtime Pk. Avfwf772.76msec 03/06 Pk. Fill0.98EDV/sec Stress Scores Regional WT0.00Summed WT2.00 Regional WM0.00Summed WM0.00 LV Perfusion The stress scans show no significant defects. The rest scans show no significant defects. Nuclear imaging shows no reversible ischemia or infarct. Wall Motion Left ventricular systolic function is normal with an ejection fraction of greater than 70%. LV Perf. Quant 17 Seg. SSS0.00 17 Seg. SRS0.00 17 Seg. SDS0.00 Stress Defect Extent (% LAD)0.00Rest Defect Extent (% LAD)0.00Rev. Defect Extent (% LAD)0.00 Stress Defect Extent (% LCX) 0.00Rest Defect Extent (% LCX)10.00Rev. Defect Extent (% LCX)0.00 Stress Defect Extent (% RCA)0.00Rest Defect Extent (% RCA)0.00Rev. Defect Extent (% RCA)0.00 Stress Defect Extent (% WILLY)0.00Rest Defect Extent (% WILLY)1.70Rev. Defect Extent (% WILLY)0.00 Conclusion 1. No EKG evidence of stress-induced ischemia. 2. Nuclear imaging shows no reversible ischemia or infarct. 3. Normal left ventricular systolic function with an ejection fraction of greater than 70%. 4. Low risk Lexiscan nuclear stress test. Signed by : Steven Flores MD Electronically Approved : 08/19/2020 11:05:42
== END ==
LOC: NM 08:01
PROVIDERS: ATTEND Internal Medicine Cardiovascular Disease
DX: I25.10 Atherosclerotic heart disease of native coronary artery without angina pectoris (principal)
CPT/HCPCS: 78452; 93017; A9500; J2785

== ENCOUNTER → 2021-01-17 | Outpatient (CLI) | payer MEDICARE, BC ==
[~2021-01-17] MED LIST changes: +AMLO-186 PO; -CYCL-331 PO; +CYCL10TA19 PO; -NIAC500C PO; +RANO500T2 PO; -REGADENOSON 0.4 MG/5 ML DISP.SYRIN. IV ONE; +SENN8.6T11 PO; +SIME125T56 PO; +[UNRECOGNIZED DRUG - CODE] PO
[2021-01-17 15:03] LABS: BASO # 0.1 x10^3/uL (0.0-0.2); BASO % 1 % (0-3); EOS # 0.2 x10^3/uL (0.0-0.7); EOS % 3 % (0-3); HEMATOCRIT 45.7 % (39.0-53.0); HEMOGLOBIN 15.8 g/dL (13.0-17.5); LYMPH # 2.4 x10^3/uL (1.0-4.8); LYMPH % 27 % (24-48); MEAN CORPUSCULAR HEMOGLOBIN 32 pg (25-35); MEAN CORPUSCULAR HGB CONC 35 g/dL (31-37); MEAN CORPUSCULAR VOLUME 92 fL (79-100); MONO # 0.6 x10^3/uL (0.0-1.1); MONO % 7 % (0-9); NEUT # 5.6 x10^3uL (1.8-7.7); NEUT % 63 % (31-73); PLATELET COUNT 216 x10^3/uL (140-400); RED BLOOD COUNT 4.96 x10^6/uL (4.30-5.70); RED CELL DISTRIBUTION WIDTH 13.3 % (11.5-14.5); WHITE BLOOD COUNT 8.9 x10^3/uL (4.0-11.0)
[2021-01-17 15:17] LABS: CALCIUM 9.8 mg/dL (8.5-10.1); GFR 73.2; POTASSIUM 3.7 mmol/L (3.5-5.1); TOTAL BILIRUBIN 0.6 mg/dL (0.2-1.0); TOTAL PROTEIN 7.9 g/dL (6.4-8.2)
[2021-01-18 14:11] LABS: THYROID STIM HORMONE (TSH) 0.056 uIU/mL (0.358-3.740)
[2021-01-19 13:16] LABS: FREE PSA/PSA RATIO 5.8 % (.); PSA FREE 0.07 ng/mL; PSA TOTAL 1.2 ng/mL (0.0-4.0)
== END ==
LOC: LAB 13:23
PROVIDERS: ATTEND Family Medicine
DX: Z12.5 Encounter for screening for malignant neoplasm of prostate (principal); E78.5 Hyperlipidemia, unspecified; Z13.29 Encounter for screening for other suspected endocrine disorder
CPT/HCPCS: 36415; 80053; 80061; 84154; 84443; 85025; G0103; 84153

== ENCOUNTER 2021-02-01 09:16 | Observation (INO) | payer MEDICARE, BC ==
[~2021-02-01] VITALS: Ht 160 cm; Wt 72.1 kg
[~2021-02-01 09:16] MED LIST changes: -AMLO-186 PO; -RANO500T2 PO; -SENN8.6T11 PO; -SIME125T56 PO
[2021-02-01] MEDS ORDERED: NITROGLYCERIN SUBLINGUAL 0.4 MG BOTTLE OF 25. SL PRN ×2 (09:45→13:00)
[2021-02-01] MEDS ORDERED: ASPIRIN CHEWABLE 81 MG TABLET. PO ONE (09:45)
--- NOTE | 2021-02-01 09:59 | PHYS DOC ---
Past History Past Medical History: CAD, High Cholesterol, Hypertension, Hypothyroid Additional Past Medical Histor: prostate cancer tx radiation Past Surgical History: Coronary Bypass Surgery Additional Past Surgical Histo: HERNIA SURGERY , 2 cardiac stents, Quad bypass 2020 Smoking: Non-smoker Alcohol Use: None Drug Use: None Adult General Chief Complaint Chief Complaint: CHEST PAIN HPI HPI Patient is a 75 year old male who presents with chest pain and shoulder pain. Patient reports having similar pain yesterday while walking up a hill. The pain was localized to his left chest 2cm lateral to his sternum, and resolved with nitroglycerin. He was able to complete his walk without pain. Today he awoke from a nap,and experienced a similar pain when he sat up. The pain resolved quickly, but he experienced the same chest pain with additional left shoulder pain over his trapezius muscle when bending over to change his cat's litter box. He did not take nitroglycerin with his pains today. He decided to come in as he has a history of DC x2 and a CABG. He reports his chest and shoulder pain resolved prior to his arrival at the ED today, and he is currently feeling well. Review of Systems Review of Systems Fourteen body systems of review of systems have been reviewed. See HPI for pertinent positives and negative responses, other campos all other systems are negative, non-pertinent or non-contributory Allergies Allergies Allergies Coded Allergies Type Severity Reaction Last Updated Verified atorvastatin Allergy Intermediate Hives 02/01/21 Yes fenofibrate Allergy Intermediate Hives 02/01/21 Yes rosuvastatin calcium Allergy Intermediate Hives 02/01/21 Yes ezetimibe Allergy Unknown 02/01/21 Yes pravastatin Allergy Unknown 02/01/21 Yes simvastatin Allergy Unknown 02/01/21 Yes Physical Exam Physical Exam Constitutional: Well developed, well nourished, no acute distress, non-toxic appearance. HENT: Normocephalic, atraumatic, bilateral external ears normal, oropharynx moist, no oral exudates, nose normal. Eyes: PERRLA, EOMI, conjunctiva normal, no discharge. Neck: Normal range of motion, no tenderness, supple, no stridor. Cardiovascular: Heart rate regular, sinus rhythm, no murmurs rubs or gallops Lungs & Thorax: Bilateral breath sounds clear to auscultation Abdomen: Bowel sounds normal, soft, no tenderness, no masses, no pulsatile masses. Nonsurgical abdomen, no peritoneal signs Skin: Warm, dry, no erythema, no rash. Back: No tenderness, no CVA tenderness. Extremities: No tenderness, no cyanosis, no clubbing, ROM intact, no edema. Neurologic: Alert and oriented X 3, grossly normal motor & sensory function, no focal deficits noted. Psychologic: Affect normal, judgement normal, mood normal. Current Patient Data Vital Signs Vital Signs Date Time Temp Pulse Resp B/P (MAP) Pulse Ox O2 Delivery O2 Flow Rate FiO2 02/01/21 09:22 98.1 104 20 152/87 (108) 100 Room Air Lab Results Laboratory Tests Test 02/01/21 10:05 02/01/21 10:06 02/01/21 13:00 White Blood Count 9.2 x10^3/uL Red Blood Count 4.81 x10^6/uL Hemoglobin 15.3 g/dL Hematocrit 44.4 % Mean Corpuscular Volume 92 fL Mean Corpuscular Hemoglobin 32 pg Mean Corpuscular Hemoglobin Concent 35 g/dL Red Cell Distribution Width 13.3 % Platelet Count 217 x10^3/uL Neutrophils (%) (Auto) 74 % Lymphocytes (%) (Auto) 16 % Monocytes (%) (Auto) 8 % Eosinophils (%) (Auto) 1 % Basophils (%) (Auto) 1 % Neutrophils # (Auto) 6.8 x10^3uL Lymphocytes # (Auto) 1.5 x10^3/uL Monocytes # (Auto) 0.7 x10^3/uL Eosinophils # (Auto) 0.1 x10^3/uL Basophils # (Auto) 0.0 x10^3/uL Sodium Level 140 mmol/L Potassium Level 4.0 mmol/L Chloride Level 104 mmol/L Carbon Dioxide Level 24 mmol/L Anion Gap 12 Blood Urea Nitrogen 16 mg/dL Creatinine 1.1 mg/dL Estimated GFR (Cockcroft-Gault) 65.6 Glucose Level 111 mg/dL Calcium Level 9.7 mg/dL Troponin I High Sensitivity 21 ng/L 25 ng/L ER-Xie-Q-Type Natriuretic Peptide 93 pg/mL SARS-CoV-2 Antigen (Rapid) Negative Current Medications Medications (Trade) Dose Ordered Sig/Tessy Route PRN Reason Start Time Stop Time Status Last Admin Dose Admin Aspirin (Aspirin Chewable) 162 mg 1X ONCE PO 02/01/21 09:45 02/01/21 09:50 DC 02/01/21 10:10 Nitroglycerin (Nitrostat) 0.4 mg PRN Q5MIN PRN SL CP RATING > 03/1302/01/21 09:45 02/02/21 09:44 02/01/21 10:11 EKG EKG EKG ordered and interpreted by myself at 0940 hrs. as sinus tachycardia at 106 bpm, unremarkable intervals, left axis deviation, T wave inversion noted in lead I and aVL, no STEMI Repeat EKG ordered and interpreted by myself at 1250 hrs. as sinus rhythm at 97 bpm, unremarkable intervals, left axis deviation, T wave inversion noted in lead aVL otherwise no acute ischemic findings, no STEMI Radiology/Procedures Radiology/Procedures EXAM: AP View of the chest DATE: 02/01/2021 9:48 AM INDICATION: Reason: chest pain / Spl. Instructions: / History: COMPARISON: No Prior FINDINGS: The heart is not enlarged. Dense aortic calcifications are seen. Mediastinal and hilar contours are stable. Focal upper lobe airspace opacities as well as left lung base are new. Trace left pleural effusion or pleural thickening. No pneumothorax. IMPRESSION: 1. Focal airspace opacities in the upper lungs and left lung base may represent consolidative process such as pneumonia or atelectasis. Imaging follow-up to resolution is recommended. 2. Trace left pleural effusion or pleural thickening. Electronically signed by: Tom Ford MD (02/01/2021 10:21 AM) [id number] Heart Score C/O Chest Pain: Yes HEART Score for Chest Pain: HEART Score for Chest Pain Response (Comments) Value History Highly Suspicious 2 ECG Normal 0 Age > 65 2 Risk Factors >3 Risk Factors or Hx CAD 2 Troponin < Normal Limit 0 Total 6 Risk Factors: Risk Factors: DM, Current or recent (<one month) smoker, HTN, HLP, family history of CAD, obesity. Risk Scores: Risk Factors: DM, Current or recent (<one month) smoker, HTN, HLP, family history of CAD, obesity. Course & Med Decision Making Course & Med Decision Making ABCs unremarkable HPI physical exam and comprehensive ER work-up nonconcerning for any emergent or surgical issues Patient had x1 episode of self-limiting chest pain that resolved in less than 5 minutes without any obvious findings on telemetry or EKG. With that said, I reviewed patient's heart score with him in extreme risk for adverse cardiac events if discharged home I contacted patient's undertaker assistant WRINKLE CHASER and reviewed case, she agreed need for admission and recommended admission to [facility] for further inpatient medical management and cardiac observation I contacted hospitalist at [facility] who, Dr. Arevalo, who ultimately accepted patient admission under his care Updated patient on conversations and was amenable to plan of care as discussed. He confirms he is full CODE STATUS at time of admission Dragon Disclaimer Dragon Disclaimer This electronic medical record was generated, in whole or in part, using a voice recognition dictation system. Departure Departure: Impression: Primary Impression: Chest pain Disposition: ADMITTED INPATIENT Admitting Physician: Michael Arevalo Condition: STABLE Referrals: ISH MARCUS MD (PCP) LISA FULLER DO Feb 01, 2021 09:59
--- NOTE | 2021-02-01 10:24 | RAD ---
EXAM: AP View of the chest DATE: 02/01/2021 9:48 AM INDICATION: Reason: chest pain / Spl. Instructions: / History: COMPARISON: No Prior FINDINGS: The heart is not enlarged. Dense aortic calcifications are seen. Mediastinal and hilar contours are stable. Focal upper lobe airspace opacities as well as left lung base are new. Trace left pleural effusion or pleural thickening. No pneumothorax. IMPRESSION: 1. Focal airspace opacities in the upper lungs and left lung base may represent consolidative proces s such as pneumonia or atelectasis. Imaging follow-up to resolution is recommended. 2. Trace left pleural effusion or pleural thickening. Electronically signed by: Tom Ford MD (02/01/2021 10:21 AM) [id number]
--- NOTE | 2021-02-01 10:25 | EKG ---
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
[2021-02-01 10:28] LABS: BASO % 1 % (0-3); EOS # 0.1 x10^3/uL (0.0-0.7); EOS % 1 % (0-3); HEMATOCRIT 44.4 % (39.0-53.0); HEMOGLOBIN 15.3 g/dL (13.0-17.5); LYMPH # 1.5 x10^3/uL (1.0-4.8); LYMPH % 16 % (24-48); MEAN CORPUSCULAR HEMOGLOBIN 32 pg (25-35); MEAN CORPUSCULAR HGB CONC 35 g/dL (31-37); MEAN CORPUSCULAR VOLUME 92 fL (79-100); MONO # 0.7 x10^3/uL (0.0-1.1); MONO % 8 % (0-9); NEUT # 6.8 x10^3uL (1.8-7.7); NEUT % 74 % (31-73); PLATELET COUNT 217 x10^3/uL (140-400); RED BLOOD COUNT 4.81 x10^6/uL (4.30-5.70); RED CELL DISTRIBUTION WIDTH 13.3 % (11.5-14.5); WHITE BLOOD COUNT 9.2 x10^3/uL (4.0-11.0)
[2021-02-01 10:42] LABS: CALCIUM 9.7 mg/dL (8.5-10.1); CREATININE 1.1 mg/dL (0.7-1.3); GFR 65.6
--- NOTE | 2021-02-01 13:22 | EKG ---
[address] [address] Test Date: 2021-02-01 Test Time: 12:46:06 Pat Name: KOBY ASIF Department: Room: Gender: M Vault Keeper: TRACE : 1945 Requested By: LSIA FULLER Order Number: [id number] Reading MD: Caleb Doan MD Measurements Intervals [place] Rate: 97 P: 28 IA: 168 QRS: -34 QRSD: 92 T: 88 QT: 348 QTc: 446 Interpretive Statements SINUS RHYTHM LAD NON-SPECIFIC ST/T CHANGES Electronically Signed On 02-01-2021 16:13:44 AUTOMATION TECH by Caleb Doan MD
--- NOTE | 2021-02-01 14:20 | NUR ---
CARDIOLOGY CONSULT CONFIRMED.
[2021-02-01] MEDS ORDERED: SIME125T56 PO (15:01)
[2021-02-01] MEDS ORDERED: AMLO-186 PO (15:01)
[2021-02-01] MEDS ORDERED: SENN8.6T11 PO (15:01)
[2021-02-01 15:06] VITALS: BP 123/74
--- NOTE | 2021-02-01 15:17 | NUR ---
Pt arrived via EMS. Pt is a&o x4 and states not in any pain. Activity as tolerated. Independent. Belongings at bedside.
--- NOTE | 2021-02-01 16:04 | HP ---
DATE OF SERVICE: 02/01/2021 ADMIT DATE: 02/01/2021 HISTORY OF PRESENT ILLNESS: The patient is a 75-year-old male patient who presented to the Emergency Room with a complaint of chest pain and left shoulder pain. He apparently had a similar episode of chest pain involving the left side of the chest while walking uphill. The pain was localized to his left chest, about 2 cm lateral to his sternum and resolved with nitroglycerin. He was able to complete his walk without pain. Today, he awakened from a nap and experienced a similar pain when he sat up. The pain resolved quickly, but he experienced the same chest pain with additional left shoulder pain that was mild, about 2/10 in severity. He denied any nausea or vomiting. Denied any shortness of breath. Denied any diaphoresis. He did not take any nitroglycerin with his pain this morning and decided to come to the Emergency Room for further evaluation and treatment as he had had 2 episodes of myocardial infarction and required percutaneous intervention as well as open heart surgery. By the time he arrived to the Emergency Room today, his pain has completely resolved. He was extensively investigated in the Emergency Room, has had an EKG, which showed that he was in sinus tachycardia with a heart rate of 106 beats per minute with unremarkable intervals, left axis deviation, T-wave inversion in lead I and aVL, but no ST segment elevation. His chest x-ray showed that the heart is not enlarged. There are dense aortic calcifications seen. Mediastinal and hilar contours are stable. Focal upper lobe airspace opacities as well as left lung base are new. He has trace left-sided pleural effusion or pleural thickening, no pneumothorax. He has had so far 2 sets of cardiac enzymes that showed his troponin I high sensitivity were within normal range at 21 and 25 with normal range 4-75 ng/L. The patient was admitted to do 2 more sets of cardiac enzymes, check his fasting lipid profile and consult the fortune cookie maker. PAST MEDICAL HISTORY: Significant for coronary artery disease status post PCI with drug-eluting stents to mid right coronary artery and left circumflex. He has hypertension, myocardial infarction, hyperlipidemia, an episode of TIA, prostate cancer and colorectal cancer. PAST SURGICAL HISTORY: Significant for PCI with stent deployment, coronary artery bypass graft surgery and left inguinal hernia repair. He was treated with external beam radiation to his prostate cancer. ALLERGIES: HE IS ALLERGIC TO ALL STATINS INCLUDING ATORVASTATIN WELL ZETIA, FENOFIBRATE, PRAVASTATIN, ROSUVASTATIN, AND SIMVASTATIN. MEDICATIONS: He is currently on the following medications: He is on Livalo 2 mg once a day; niacin 500 mg daily; omega 3 fatty acids, 1 capsule 3 times a day; nitroglycerin 0.4 mg sublingually every 5 minutes x 3; amlodipine besylate 5 mg twice a day; aspirin 81 mg once a day; acetaminophen 500 mg twice a day; artificial tears 2 drops to both eyes at bedtime; simethicone 125 mg daily p.r.n.; Colace 100 mg twice a day; polyethylene glycol for MiraLax 17 grams daily. He is on senna 1 tablet twice a day, Protonix 40 mg daily, levothyroxine sodium 100 mcg once a day, cholecalciferol and vitamin D 2000 units once a day, multivitamin 1 tablet once a day. FAMILY HISTORY: Positive for hypertension. SOCIAL HISTORY: He is single, never , has no children. He quit smoking in 1970 as well as drinking alcohol. He does not use any drugs. He is a [place] who lives alone. REVIEW OF SYSTEMS: As per history of present illness. PHYSICAL EXAMINATION: GENERAL: On arrival to the hospital, he looked well and was clearly in no apparent respiratory distress. There was no pallor, jaundice, cyanosis or thyromegaly. No jugular venous distention. No lower limb edema. VITAL SIGNS: His heart rate was 104, blood pressure was 152/87, temperature was 98.1, respiratory rate 20, and oxygen saturation was 100% on room air. HEAD, EYES, EARS, NOSE, AND THROAT: Showed normocephalic, atraumatic. NECK: Supple. HEART: Showed normal first and second heart sounds. No gallop or murmur. CHEST: Clear to auscultation. No crepitation or rhonchi. ABDOMEN: Distended, soft, nontender. NEUROLOGIC: He was grossly intact. LABORATORY DATA: His lab work on arrival showed a white cell count 9200, hemoglobin 15, hematocrit 44, MCV 92 and platelet count of 217,000 with a manual differential showed 74% polymorphs, 16% lymphocytes. His chemistry showed a serum sodium 140, potassium 4, chloride 104, bicarbonate 24, anion gap of 12, BUN 16, creatinine 1.1. Estimated GFR was 65 mL per minute. His glucose 111, calcium was 9.7 and beta natriuretic peptide was 93 pg/mL ASSESSMENT AND PLAN: In summary, this is a 75-year-old male patient who was admitted with chest pain that is fairly atypical. So far, he has had 2 sets of cardiac enzymes that ruled out acute myocardial infarction with a past medical history significant for coronary artery disease status post myocardial infarction x 2. He had percutaneous coronary intervention with stent deployment to the right coronary artery and left circumflex coronary artery bypass graft surgery, hypertension, hyperlipidemia, transient ischemic attack, and history of prostate and colorectal cancer. He is an ex-smoker, quit smoking in 1970. My plan is to do 2 more sets of cardiac enzyme and check also his fasting lipid profile tomorrow. We have already consulted the fortune cookie maker to assist with his management. NELSY GRANT: [place] TID: [id number]
[2021-02-01] MEDS ORDERED: RANO500T2 PO (17:06)
--- NOTE | 2021-02-01 17:33 | NUR ---
Pt is asymptomatic without pain. He has been seen and cleared by Cardiology. All personal belongings are in his possession and IV has been D/C.
--- NOTE | 2021-02-02 07:26 | PDOC ---
PROVIDER NOTE PROVIDER NOTE PROVIDER NOTE Cardiology consultation note: Reason for consultation chest pain Consulting physician: Dr. Wellington History of present illness Mr. Pathak is a well-known patient of our service who presents to the hospital in the setting of typical and atypical chest discomfort. He has had longstanding chest discomfort for which he underwent a coronary artery bypass surgery approximately a year ago. Since then has been doing fairly well. He is quite active and continues to walk up and down several hills. Yesterday he had some recurrence of chest discomfort when he was walking up the first hill on his usual daily walk and was able to have this resolved by the second time he climbed up that hill. He also notes some chest pain at rest which is mostly pinpoint in nature over the left breast. He has no radiation or associated palpitations, syncope or exertional dyspnea. Since arrival to the hospital he is not had any specific EKG abnormalities or laboratory abnormalities. He currently remains chest pain-free. His blood pressure and vital signs are well controlled. And he is on home medical therapy with aspirin and amlodipine. He is intolerant to statins. Past medical history: 1. Dyslipidemia 2. Hypertension 3. Coronary artery disease status post four-vessel bypass Social history: Patient denies any alcohol, tobacco or illicit drug use. He is retired. He remains active. He is single. Family history is noncontributory Allergies to multiple statins as noted Current cardiovascular medications include amlodipine 5 mg p.o. twice daily, aspirin 81 mg daily and nitroglycerin sublingual as needed. Of note the patient has taken sublingual nitroglycerin in the past for his symptoms. Review of systems negative for 10 out of 14 systems reviewed unless otherwise mentioned above in HPI. Physical examination The patient appeared well nourished and normally developed. Head exam is unremarkable. No scleral icterus or corneal arcus noted. Neck is without jugular venous distension, thyromegaly, or carotid bruits. Carotid upstrokes are brisk bilaterally. Lungs are clear to auscultation and percussion. Cardiac exam reveals the PMI to be normally sized and situated. Rhythm is regular. First and second heart sounds normal. No murmurs, rubs or gallops. Abdominal exam reveals normal bowel sounds, no masses, no organomegaly and no aortic enlargement. Extremities are nonedematous and both femoral and pedal pulses are normal. Msk: No traumua Neuro: No focal deficits Diagnostic studies EKG, biomarkers, chest x-ray are unremarkable. Telemetry is unremarkable. Stress testing in August 2020 did not reveal any significant ischemic burden and he was found to have a preserved ejection fraction. Impression: 1. Chronic stable angina in the setting of known coronary artery disease with typical and atypical features 2. Multiple other cardiovascular comorbidities as noted above. Recommendations: 1. At this present time we will reinitiate his home Ranexa therapy at 500 mg p.o. twice daily. We will determine if this helps his symptoms otherwise could consider repeat outpatient cardiac catheterization for symptom relief. 2. Given his blood pressures are normal to the lower end would hesitate to initiate long-acting nitroglycerin therapy but this could be a consideration on an outpatient basis Thank you for this consultation. Okay to discharge from a cardiovascular perspective. Justification of Admission: Justification of Admission: Justification of Admission Dx: N/A Angina: Cresendo Worsening of Sym VERONICA SCHULZ MD Feb 02, 2021 07:26
== END 2021-02-01 17:58 | disposition home or self-care (01) ==
LOC: ER 09:16 → INTOOBSV 12:48 → 1 SOUTH 12:48
PROVIDERS: ADMIT Internal Medicine; ATTEND Internal Medicine
DX: R07.89 Other chest pain (principal); Z20.822 Contact with and (suspected) exposure to COVID-19; I25.10 Atherosclerotic heart disease of native coronary artery without angina pectoris; I25.2 Old myocardial infarction; I10 Essential (primary) hypertension; E78.5 Hyperlipidemia, unspecified; E03.9 Hypothyroidism, unspecified; E78.00 Pure hypercholesterolemia, unspecified; G45.9 Transient cerebral ischemic attack, unspecified; Z79.82 Long term (current) use of aspirin; Z85.048 Personal history of other malignant neoplasm of rectum, rectosigmoid junction, and anus; Z86.73 Personal history of transient ischemic attack (TIA), and cerebral infarction without residual deficits; Z85.46 Personal history of malignant neoplasm of prostate; Z85.038 Personal history of other malignant neoplasm of large intestine; Z87.891 Personal history of nicotine dependence; Z95.1 Presence of aortocoronary bypass graft; Z95.5 Presence of coronary angioplasty implant and graft
CPT/HCPCS: 36415; 71045; 80048; 83880; 84484; 85025; 87426; 93005; 99285; G0378; U0003; G0379